=== PATIENT | male | born 1955 | race Caucasian/White ===

== ENCOUNTER → 2016-10-15 | Outpatient (CLI) | payer OTHER ==
--- NOTE | 2016-10-15 13:07 | US ---
EXAMINATION TYPE: US carotid duplex BILAT DATE OF EXAM: 10/15/2016 12:28 PM COMPARISON: NONE CLINICAL HISTORY: Bruit. EXAM MEASUREMENTS: RIGHT: Peak Systolic Velocity (PSV) cm/sec ----- Right CCA: 83.6 ----- Right ICA: 66.9 ----- Right ECA: 82.0 ICA/CCA ratio: 0.8 RIGHT: End Diastole cm/sec ----- Right CCA: 15.9 ----- Right ICA: 23.2 ----- Right ECA: 10.3 LEFT: Peak Systolic Velocity (PSV) cm/sec ----- Left CCA: 65.9 ----- Left ICA: 69.5 ----- Left ECA: 93.2 ICA/CCA ratio: 1.1 LEFT: End Diastole cm/sec ----- Left CCA: 16.7 ----- Left ICA: 26.3 ----- Left ECA: 11.0 VERTEBRALS (direction of flow): Right Vertebral: Antegrade Left Vertebral: Antegrade TECHNOLOGIST IMPRESSION: No significant stenosis seen Grayscale images show no significant focal plaque at carotid bulb level bilaterally. IMPRESSION: No hemodynamically significant stenosis is seen in either internal carotid artery. Criteria for Assigning % of Stenosis / Diameter reduction (Estimation based on the indirect measurements of the internal carotid artery velocities (ICA PSV). 1. Normal (no stenosis)=ICA PSV < 125 cm/s: ratio < 2.0: ICA EDV<40 cm/s.
--- NOTE | 2016-10-16 10:58 | ECHOF ---
Referral Reason:R06.00 dyspnea MEASUREMENTS -------- HEIGHT: 177.8 cm WEIGHT: 145.2 kg BP: 150/90 RVIDd: 3.6 cm (< 3.3) IVSd: 1.6 cm (0.6 - 1.1) LVIDd: 5.5 cm (3.9 - 5.3) LVPWd: 1.5 cm (0.6 - 1.1) IVSs: 2.4 cm LVIDs: 4.2 cm LVPWs: 2.4 cm LA Diam: 4.1 cm (2.7 - 3.8) LAESV Index (A-L): 28.76 ml/m Ao Diam: 3.7 cm (2.0 - 3.7) AV Cusp: 2.0 cm (1.5 - 2.6) MV EXCURSION: 18.221 mm (> 18.000) MV EF SLOPE: 55 mm/s (70 - 150) EPSS: 1.5 cm MV E Matt: 1.02 m/s MV DecT: 199 ms MV A Matt: 0.75 m/s MV E/A Ratio: 1.36 AV maxP.06 mmHg AV meanP.00 mmHg RAP: 5.00 mmHg RVSP: 41.36 mmHg FINDINGS -------- Sinus rhythm. This was a technically adequate study. The left ventricular size is normal. There is moderate concentric left ventricular hypertrophy. Overall left ventricular systolic function is mildly impaired with, an EF between 45 - 50 %. The right ventricle is mildly enlarged. LA is midly dilated 29-33ml/m2. The right atrium is normal in size. 1.5mg of Definity was utilized for enhancement of images Aortic valve is trileaflet and is moderately thickened. There is moderate aortic stenosis present. Peak/mean gradient across the Aortic Valve is 40.06mmHg / 23.00mmHg. Mild mitral annular calcification present. Mild tricuspid regurgitation present. There is mild pulmonary hypertension. The right ventricular systolic pressure, as measured by Doppler, is 41.36mmHg. The pulmonic valve was not well visualized. The aortic root is dilated measuring 3.7cm. Normal inferior vena cava with normal inspiratory collapse consistent with estimated right atrial pressure of 5 mmHg. There is no pericardial effusion. CONCLUSIONS -------- 1. Sinus rhythm. 2. Aortic valve is trileaflet and is moderately thickened. 3. There is moderate aortic stenosis present. 4. Peak/mean gradient across the Aortic Valve is 40.06mmHg / 23.00mmHg. 5. Mild mitral annular calcification present. 6. Mild tricuspid regurgitation present. 7. There is mild pulmonary hypertension. 8. The right ventricular systolic pressure, as measured by Doppler, is 41.36mmHg. 9. The pulmonic valve was not well visualized. 10. The aortic root is dilated measuring 3.7cm. 11. Normal inferior vena cava with normal inspiratory collapse consistent with estimated right atrial pressure of 5 mmHg. 12. This was a technically adequate study. 13. There is no pericardial effusion. 14. The left ventricular size is normal. 15. There is moderate concentric left ventricular hypertrophy. 16. Overall left ventricular systolic function is mildly impaired with, an EF between 45 - 50 %. 17. The right ventricle is mildly enlarged. 18. LA is midly dilated 29-33ml/m2. 19. The right atrium is normal in size. 20. 1.5mg of Definity was utilized for enhancement of images CONTROL CLERK HEAD: Ani Dior RDCS
== END ==
LOC: RADUSMAIN 11:52
PROVIDERS: ATTEND Physician Assistant Medical
DX: R09.89 Other specified symptoms and signs involving the circulatory and respiratory systems (principal)
CPT/HCPCS: 93306; 93880; Q9957

== ENCOUNTER 2018-05-06 10:31 | Inpatient (IN) | payer OTHER ==
[2018-05-06] MEDS ORDERED: IPRATROPIUM-ALBUTEROL 3 ML NEB INHALATION STA (10:43)
[2018-05-06] MEDS ORDERED: SODIUM CHLORIDE 0.9% 1,000 ML IV STA (10:43)
[2018-05-06] MEDS ORDERED: FUROSEMIDE 10 MG/ML 4 ML VIAL IV STA (10:43)
--- NOTE | 2018-05-06 10:46 | ED ---
SOB HPI - General Chief Complaint: Shortness of Breath Stated Complaint: franco Time Seen by Provider: 05/06/18 10:39 Source: patient, RN notes reviewed Mode of arrival: wheelchair Limitations: no limitations - History of Present Illness Initial Comments: This is a 63-year-old male with a history of bicuspid aortic valve and aortic stenosis diabetes and obesity but no diagnosed history of COPD who states she's had exertional dyspnea and shortness of breath as he progressively worse. He states is been on-and-off for the past 1-2 months but worse since yesterday. He has a cough with thick white phlegm no overt fevers chills or sweats he states he has some burning pain across his upper abdomen yesterday and today. No other modifying factors he states he had an x-ray done at the [facility] recently which showed fluid. He states he is at 311 pounds and has not again anything recently. No worsening of any edema. No pain currently at this time patient states he did try his son's inhaler without any relief MD Complaint: shortness of breath - Related Data Home Medications Medication Instructions Recorded Confirmed PARoxetine HCL 30 mg PO DAILY 08/20/16 05/06/18 Indomethacin [Indocin] 25 mg PO TID PRN 05/06/18 05/06/18 Allergies Allergy/AdvReac Type Severity Reaction Status Date / Time No Known Allergies Allergy Verified 05/06/18 12:13 Review of Systems ROS Statement: Those systems with pertinent positive or pertinent negative responses have been documented in the HPI. ROS Other: All systems not noted in ROS Statement are negative. Past Medical History Past Medical History: Diabetes Mellitus Additional Past Medical History / Comment(s): pulmonary edema History of Any Multi-Drug Resistant Organisms: None Reported Past Surgical History: Cholecystectomy Additional Past Surgical History / Comment(s): carpal tunnel left and right hand Past Anesthesia/Blood Transfusion Reactions: No Reported Reaction Past Psychological History: No Psychological Hx Reported Smoking Status: Never smoker Past Alcohol Use History: None Reported Past Drug Use History: None Reported General Exam - General Exam Comments Initial Comments: This is a well-developed well-nourished awake alert oriented times 3 male Limitations: no limitations General appearance: alert, in no apparent distress Head exam: Present: atraumatic, normocephalic, normal inspection Eye exam: Present: normal appearance, PERRL, EOMI. Absent: scleral icterus, conjunctival injection, periorbital swelling ENT exam: Present: normal exam, mucous membranes moist Neck exam: Present: normal inspection. Absent: tenderness, meningismus, lymphadenopathy Respiratory exam: Present: decreased breath sounds. Absent: respiratory distress, wheezes, rales, rhonchi, stridor Cardiovascular Exam: Present: regular rate, normal rhythm, normal heart sounds. Absent: systolic murmur, diastolic murmur, rubs, gallop, clicks GI/Abdominal exam: Present: soft, normal bowel sounds, other (Obese abdomen). Absent: distended, tenderness, guarding, rebound, rigid, bruit, pulsatile mass Extremities exam: Present: normal inspection, full ROM, normal capillary refill , pedal edema. Absent: tenderness, joint swelling, calf tenderness Back exam: Present: normal inspection Neurological exam: Present: alert, oriented X3, CN II-XII intact Psychiatric exam: Present: normal affect, normal mood Skin exam: Present: warm, dry, intact, normal color. Absent: rash Course Vital Signs 05/06/18 05/06/18 05/06/18 10:33 10:57 11:11 Temperature 98.3 F Pulse Rate 65 62 59 L Respiratory 20 18 Rate Blood Pressure 161/96 158/93 O2 Sat by Pulse 98 99 Oximetry 05/06/18 05/06/18 11:19 13:39 Temperature Pulse Rate 80 64 Respiratory 18 Rate Blood Pressure 175/103 O2 Sat by Pulse 97 Oximetry - Reevaluation(s) Reevaluation #1: 05/06/18 11:33 Patient states she is breathing easier after the DuoNeb treatment. Medical Decision Making - Medical Decision Making I did discuss the findings the patient's family. Patient be admitted for evaluation of congestive heart failure did discuss case the hospitalist. - Lab Data Result diagrams: 05/06/18 10:04 05/06/18 10:04 Lab Results 05/06/18 05/06/18 05/06/18 Range/Units 10:04 10:04 10:04 WBC 9.9 (3.8-10.6) k/uL RBC 4.49 (4.30-5.90) m/uL Hgb 12.2 L (13.0-17.5) gm/dL Hct 39.5 (39.0-53.0) % MCV 88.1 (80.0-100.0) fL MCH 27.1 (25.0-35.0) pg MCHC 30.8 L (31.0-37.0) g/dL RDW 15.3 (11.5-15.5) % Plt Count 333 (150-450) k/uL Neutrophils % 86 % Lymphocytes % 10 % Monocytes % 3 % Eosinophils % 1 % Basophils % 0 % Neutrophils # 8.5 H (1.3-7.7) k/uL Lymphocytes # 1.0 (1.0-4.8) k/uL Monocytes # 0.3 (0-1.0) k/uL Eosinophils # 0.1 (0-0.7) k/uL Basophils # 0.0 (0-0.2) k/uL PT (9.0-12.0) sec INR (<1.2) APTT (22.0-30.0) sec D-Dimer (<0.60) mg/L FEU Sodium 143 (137-145) mmol/L Potassium 4.5 (3.5-5.1) mmol/L Chloride 107 (98-107) mmol/L Carbon Dioxide 23 (22-30) mmol/L Anion Gap 13 mmol/L BUN 32 H (9-20) mg/dL Creatinine 1.22 (0.66-1.25) mg/dL Est GFR (CKD-EPI)AfAm 73 (>60 ml/min/1.73 sqM) Est GFR (CKD-EPI)NonAf 63 (>60 ml/min/1.73 sqM) Glucose 135 H (74-99) mg/dL Calcium 9.3 (8.4-10.2) mg/dL Magnesium 2.0 (1.6-2.3) mg/dL Total Bilirubin 1.6 H (0.2-1.3) mg/dL AST 63 H (17-59) U/L ALT 66 (21-72) U/L Alkaline Phosphatase 86 (38-126) U/L Total Creatine Kinase 236 H (55-170) U/L CK-MB (CK-2) 3.4 H* (0.0-2.4) ng/mL CK-MB (CK-2) Rel Index 1.4 Troponin I 0.024 (0.000-0.034) ng/mL NT-Pro-B Natriuret Pep pg/mL Total Protein 7.4 (6.3-8.2) g/dL Albumin 4.3 (3.5-5.0) g/dL 05/06/18 05/06/18 Range/Units 10:04 10:04 WBC (3.8-10.6) k/uL RBC (4.30-5.90) m/uL Hgb (13.0-17.5) gm/dL Hct (39.0-53.0) % MCV (80.0-100.0) fL MCH (25.0-35.0) pg MCHC (31.0-37.0) g/dL RDW (11.5-15.5) % Plt Count (150-450) k/uL Neutrophils % % Lymphocytes % % Monocytes % % Eosinophils % % Basophils % % Neutrophils # (1.3-7.7) k/uL Lymphocytes # (1.0-4.8) k/uL Monocytes # (0-1.0) k/uL Eosinophils # (0-0.7) k/uL Basophils # (0-0.2) k/uL PT 14.4 H (9.0-12.0) sec INR 1.6 H (<1.2) APTT 22.8 (22.0-30.0) sec D-Dimer 1.30 H (<0.60) mg/L FEU Sodium (137-145) mmol/L Potassium (3.5-5.1) mmol/L Chloride (98-107) mmol/L Carbon Dioxide (22-30) mmol/L Anion Gap mmol/L BUN (9-20) mg/dL Creatinine (0.66-1.25) mg/dL Est GFR (CKD-EPI)AfAm (>60 ml/min/1.73 sqM) Est GFR (CKD-EPI)NonAf (>60 ml/min/1.73 sqM) Glucose (74-99) mg/dL Calcium (8.4-10.2) mg/dL Magnesium (1.6-2.3) mg/dL Total Bilirubin (0.2-1.3) mg/dL AST (17-59) U/L ALT (21-72) U/L Alkaline Phosphatase (38-126) U/L Total Creatine Kinase (55-170) U/L CK-MB (CK-2) (0.0-2.4) ng/mL CK-MB (CK-2) Rel Index Troponin I (0.000-0.034) ng/mL NT-Pro-B Natriuret Pep 90774 pg/mL Total Protein (6.3-8.2) g/dL Albumin (3.5-5.0) g/dL - EKG Data -: EKG Interpreted by Me (EKG shows left bundle branch block pattern rate was 61 appear interval 176 ) - Radiology Data Radiology results: report reviewed (I did review the imaging and reports are is evidence of congestive heart failure no definite evidence of pulmonary embolism. ), image reviewed Critical Care Time Critical Care Time: Yes Critical Care Time: Critical care time: 32 minutes which includes initial presentation with history physical labs x-rays several reevaluation the patient response to therapy discussed with patient family regarding findings discussion with the hospitalist Dr. Cordero admission orders and documentation of the above. Disposition Clinical Impression: Dyspnea, Chest pain Disposition: ADMITTED IP TO THIS HOSP Condition: Stable Referrals: Estevan Howell MD [Primary Care Provider] - 1-2 days
[2018-05-06 11:22] LABS: Basophils % (A) 0 %; Eosinophils # (A) 0.1 k/uL (0-0.7); Eosinophils % (A) 1 %; HCT 39.5 % (39.0-53.0); HGB 12.2 gm/dL (13.0-17.5); Lymphocytes % (A) 10 %; MCH 27.1 pg (25.0-35.0); MCHC 30.8 g/dL (31.0-37.0); MCV 88.1 fL (80.0-100.0); Mean Platelet Volume 6.9; Monocytes # (A) 0.3 k/uL (0-1.0); Monocytes % (A) 3 %; Neutrophils # (A) 8.5 k/uL (1.3-7.7); Neutrophils % (A) 86 %; Platelet Count 333 k/uL (150-450); RBC 4.49 m/uL (4.30-5.90); RDW 15.3 % (11.5-15.5); WBC 9.9 k/uL (3.8-10.6)
[2018-05-06 11:31] LABS: Albumin 4.3 g/dL (3.5-5.0); Calcium 9.3 mg/dL (8.4-10.2); Potassium 4.5 mmol/L (3.5-5.1); Total Bilirubin 1.6 mg/dL (0.2-1.3); Total Protein 7.4 g/dL (6.3-8.2)
[2018-05-06 11:58] LABS: INR 1.6 (<1.2); Partial Thromboplastin Time 22.8 sec (22.0-30.0); Prothrombin Time 14.4 sec (9.0-12.0)
--- NOTE | 2018-05-06 11:59 | XR ---
EXAMINATION TYPE: XR chest 2V DATE OF EXAM: 05/06/2018 COMPARISON: 04/19/2011 HISTORY: Difficulty breathing TECHNIQUE: Frontal and lateral views of the chest are obtained. FINDINGS: There is very mild pulmonary vascular congestion are trace bilateral pleural effusions in combination with cardiomegaly. Mild multilevel degenerative changes of the thoracic spine are seen. O sseous structures are grossly intact. IMPRESSION: Findings likely the basis of mild decompensated congestive heart failure.
[2018-05-06 12:04] LABS: D-Dimer 1.3 mg/L FEU (<0.60)
[2018-05-06 12:08] LABS: Troponin I 0.024 ng/mL (0.000-0.034)
[2018-05-06 12:09] LABS: Creatine Kinase MB 3.4 ng/mL (0.0-2.4)
--- NOTE | 2018-05-06 13:02 | CT ---
EXAMINATION TYPE: CT angio chest DATE OF EXAM: 05/06/2018 COMPARISON: Chest CT April 20, 2011. Chest x-ray earlier today. HISTORY: Shortness of breath and chest pain. CT DLP: 835.5 mGycm. Automated Exposure Control for Dose Reduction was Utilized. CONTRAST: CTA scan of the thorax is performed with IV Contrast, patient injected with 100 mL of Isovue 370, pul monary embolism protocol. MIP Images are created on CT scanner and reviewed. FINDINGS: LUNGS: There are small to moderate-sized right greater than left pleural effusions seen on CT larger than expected on recent chest x-ray. There is ground glass opacity both bases favoring early atelecta tic change related to effusions. No pneumothorax is seen bilaterally. Tracheobronchial tree is patent . MEDIASTINUM: There is slightly suboptimal bolus but there is no CT evidence for pulmonary embolism. There are prominent thoracic lymph nodes redemonstrated. Largest prevascular region measures 2.2 x 1. 1 cm on axial image 49 slightly more prominent versus prior axial image 63. A pericarinal lymph node measures 2.4 x 1.4 cm axial image 49 also felt slightly more prominent versus prior. There is redemon stration of cardiomegaly without significant pericardial effusion. Reflux of contrast into hepatic ve ins and IVC is now present. Moderate calcification at aortic valve is identified. Ascending aorta [place] sures 4.1 cm diameter axial image 65. Adjacent main pulmonary artery measures 2.7 cm in diameter. Th ere is moderate biatrial dilatation. Other: Small degree of bilateral gynecomastia is redemonstrated IMPRESSION: 1. Slightly suboptimal study without CT evidence for acute pulmonary embolism. 2. Suspect CHF exacerbation as there is cardiomegaly with small to moderate-sized right greater than left pleural effusions. Correlate clinically. 3. Thoracic adenopathy slightly larger from 2011 may warrant further clinical workup as detailed abov e. 4. Ascending aortic aneurysm up to 4.1 cm redemonstrated felt stable.
[2018-05-06] MEDS ORDERED: HEPARIN SODIUM,PORCINE 5,000 UNIT/ML 1 ML VIAL IV ONE (14:40)
[2018-05-06] MEDS ORDERED: HEPARIN SOD,PORK IN 0.45% NACL 25,000 UNIT in 0.45% NACL 1 500ML.BAG IV SCH (14:45)
[2018-05-06] MEDS: SODIUM CHLORIDE 0.9% 1,000 ML IV SCH (15:01)
[2018-05-06] MEDS: NITROGLYCERIN OINT 1 INCH/GM PACKET TOPICAL SCH ×2 (15:08→22:50)
[2018-05-06] MEDS ORDERED: ACETAMINOPHEN TAB 325 MG TAB PO PRN (15:11)
[2018-05-06] MEDS ORDERED: NALOXONE 0.4 MG/ML 1 ML VIAL IV PRN (15:11)
--- NOTE | 2018-05-06 15:51 | P.HPIM ---
History of Present Illness H&P Date: 05/06/18 Chief Complaint: Shortness of breath This is a 63-year-old male with past medical history of congestive heart failure , diabetes mellitus, aortic stenosis, obstructive sleep apnea, hypertension initially presented to the emergency department for shortness of breath. Patient reports feeling short of breath since March 2018. Patient had an exercise endurance of 1-2 blocks but since March has felt that he cannot walk more than 10 feet. Patient denies any lower extremity edema. Patient states he sleeps on one pillow at night, he denies orthopnea. Patient reports going to the [facility] this Friday and receiving a Z-Cesar for a persistent productive cough over the past month. Patient reports that he has made multiple trips to the [facility] in [place] over the last 6 months where a thorough cardiac workup had been performed. Patient reports undergoing an angiogram and transesophageal echocardiogram while at the [facility] in [place]. Patient states that he was told about a 40% and 70% occlusion in his heart but no intervention was performed. He denies any headaches, lower extremity edema, nausea, vomiting, fever, palpitations, joint pain, changes in urination or bowel habits, and changes in appetite or weight. He denies chest pain but complains of chest tightness. Patient reports compliance with his medication and salt restriction , but states he has been increasing his water intake in order to lose weight. In the ED patient was found to have a D-dimer of 1.30, BUN 32, AST 63, CPK 236, Trop 0.02. CT angiogram was performed and pulmonary embolus was ruled out but was more suggestive of pulmonary edema and congestive heart failure. Chest x- ray was consistent with CHF. Patient was given aspirin 325 mg, furosemide 40 mg IV, and a heparin drip. Review of Systems Constitutional: Reports as per HPI Ears, nose, mouth and throat: Reports as per HPI Cardiovascular: Reports as per HPI Respiratory: Reports as per HPI Gastrointestinal: Reports as per HPI Genitourinary: Reports as per HPI Musculoskeletal: Reports as per HPI Integumentary: Reports as per HPI Neurological: Reports as per HPI Psychiatric: Reports as per HPI Endocrine: Reports as per HPI Hematologic/Lymphatic: Reports as per HPI Allergic/Immunologic: Reports as per HPI Past Medical History Past Medical History: Diabetes Mellitus Additional Past Medical History / Comment(s): Congestive Heart Failure, Aortic stenosis, Sleep apnea, Hypertension, Diabetes Mellitus, Coronary artery disease History of Any Multi-Drug Resistant Organisms: None Reported Past Surgical History: Cholecystectomy Additional Past Surgical History / Comment(s): carpal tunnel left and right hand Past Anesthesia/Blood Transfusion Reactions: No Reported Reaction Past Psychological History: No Psychological Hx Reported Smoking Status: Never smoker Past Alcohol Use History: None Reported Past Drug Use History: None Reported - Past Family History Father Family Medical History: Cancer ([place], long history of smoking), Myocardial Infarction ([place]) (at age 57-58) Medications and Allergies Home Medications Medication Instructions Recorded Confirmed Type PARoxetine HCL 30 mg PO DAILY 08/20/16 05/06/18 History Aspirin EC [Ecotrin Low Dose] 81 mg PO DAILY 05/06/18 05/06/18 History Atorvastatin [Lipitor] 10 mg PO HS 05/06/18 05/06/18 History Cyanocobalamin (Vitamin B-12) 1,000 mcg PO DAILY 05/06/18 05/06/18 History [Vitamin B-12] Ferrous Sulfate [Feosol] 325 mg PO DAILY 05/06/18 05/06/18 History Fluticasone Nasal [place] [Flonase 1 spray EA NOSTRIL DAILY 05/06/18 05/06/18 History Nasal [place]] Furosemide [Lasix] 40 mg PO TID-W/MEALS 05/06/18 05/06/18 History Indomethacin [Indocin] 25 mg PO TID PRN 05/06/18 05/06/18 History Lisinopril [Zestril] 10 mg PO DAILY 05/06/18 05/06/18 History Metoprolol Succinate [Toprol Xl] 50 mg PO DAILY 05/06/18 05/06/18 History Naproxen 500 mg PO BID 05/06/18 05/06/18 History Potassium Chloride [Klor-Con 20] 20 meq PO DAILY 05/06/18 05/06/18 History Allergies Allergy/AdvReac Type Severity Reaction Status Date / Time No Known Allergies Allergy Verified 05/06/18 12:13 Physical Exam Vitals: Vital Signs Temp Pulse Resp BP Pulse Ox 05/06/18 15:15 98.4 F 60 18 180/90 98 05/06/18 13:39 64 18 175/103 97 05/06/18 11:19 80 05/06/18 11:11 59 L 05/06/18 10:57 62 18 158/93 99 05/06/18 10:33 98.3 F 65 20 161/96 98 Intake and Output 05/06/18 05/06/18 05/06/18 06:59 14:59 22:59 Output Total 800 Balance -800 Output: Urine 800 Other: Weight 141.067 kg General: non toxic, no distress, appears at stated age, appears short of breath Derm: warm, dry Head: atraumatic, normocephalic, symmetric Eyes: EOMI, no lid lag, anicteric sclera Mouth: no lip lesion, mucus membranes moist Cardiovascular: S1S2 reg, systolic murmur, no lower extremity edema Lungs: Decreased breath sounds bilaterally, no rhonchi, no rales , no accessory muscle use Abdominal: soft, nontender to palpation, obese abdomen, no appreciable organomegaly Ext: no gross muscle atrophy, no contractures Neuro: no focal neuro deficits Psych: Alert, oriented, appropriate affect Results CBC & Chem 7: 05/06/18 10:04 05/06/18 10:04 Labs: Abnormal Lab Results - Last 24 Hours (Table) 05/06/18 05/06/18 05/06/18 Range/Units 10:04 10:04 10:04 Hgb 12.2 L (13.0-17.5) gm/dL MCHC 30.8 L (31.0-37.0) g/dL Neutrophils # 8.5 H (1.3-7.7) k/uL PT (9.0-12.0) sec INR (<1.2) D-Dimer (<0.60) mg/L FEU BUN 32 H (9-20) mg/dL Glucose 135 H (74-99) mg/dL Total Bilirubin 1.6 H (0.2-1.3) mg/dL AST 63 H (17-59) U/L Total Creatine Kinase 236 H (55-170) U/L CK-MB (CK-2) 3.4 H* (0.0-2.4) ng/mL 05/06/18 Range/Units 10:04 Hgb (13.0-17.5) gm/dL MCHC (31.0-37.0) g/dL Neutrophils # (1.3-7.7) k/uL PT 14.4 H (9.0-12.0) sec INR 1.6 H (<1.2) D-Dimer 1.30 H (<0.60) mg/L FEU BUN (9-20) mg/dL Glucose (74-99) mg/dL Total Bilirubin (0.2-1.3) mg/dL AST (17-59) U/L Total Creatine Kinase (55-170) U/L CK-MB (CK-2) (0.0-2.4) ng/mL Chest x-ray: report reviewed CT scan - chest: report reviewed Thrombosis Risk Factor Assmnt - DVT/VTE Prophylaxis DVT/VTE Prophylaxis: Pharmacologic Prophylaxis ordered - Choose All That Apply Each Factor Represents 1 point: Obesity (BMI >25) Each Risk Factor Represents 2 Points: Age 61-74 years, Patient confined to bed Thrombosis Risk Factor Assessment Total Risk Factor Score: 5 Thrombosis Risk Factor Assessment Level: High Risk Assessment and Plan Assessment: Assessment 63 year old M with PMH of CHF, CAD, DM, sleep apnea, HTN, presents to the ED for worsening exertional SOB for the past 2 months. He was recently diagnosed with and CHF. He is admitted for management of decompensated HF. Plan Dyspnea - Likely acute decompensated HF likely 2/2 patient noncompliance of fluid restriction, complicated by Aortic stenosis and pleural effusions. - r/o ACS - Trop < 0.03 x 1, elevated CKMB x 1 - EKG shows NSR with LBBB - Continue DuoNeb QTrend 2 more sets of Trop/EKG to r/o ACS. CHF exacerbation - BNP 66249 - CXR shows mild decompensated CHF - CTAPE shows no PE, cardiomegaly with R>L pleural effusion, thoracic adenopathy , 4.1 cm AAA. - Patient reports cardiac angiogram at [facility] in [place] - Echo from 10/2016 shows EF 45-50% with concentric hypertrophy. - Will obtain Echocardiogram to assess EF and degree of . Will need to either transfer or obtain records from [facility] regarding cardiac workup. Start Lasix 40 IV BID. Daily weights. Strict Ins and Outs. Telemetry monitoring. Low salt diet. Fluid restriction. Keep K > 4 and Mg > 2. FU Dietitian, Cardiology : Continue Lasix 40 mg IV BID. Avoid overdiuresing and add ACEi when CHANTEL is better. FU Echocardiogram HTN: BP 180/90. Last dose this morning, but unable to name. Will re-start Metoprolol 50 mg PO daily, Lisinopril 10 mg PO daily. Monitor vitals, adjust medications as necessary. FU Lipid panel CHANTEL: BUN 32 Cr 1.22 likely due to dehydration. Will avoid fluids due to respiratory and cardiac status. Avoid nephrotoxins. Will continue to monitor. FU CMP in the AM. Transaminase: T. Bili 1.6 AST 63 ALT 66. Likely related to hepatic congestion. FU CMP in the AM, acute Hep panel, Lipid panel. AAA: 4.1 cm seen of Chest CTA. Seen on Echo in 10/2016 measuring 3.7 cm. Stable, FU outPT. Thoracic adenopathy: Likely due to pulmonary congestion. No fever or leukocytosis. Unknown etiology at this time. Will continue to monitor. Anemia: Hg 12.2 Hct 39.5 MCV 88.1. Normocytic likely AOCD. Continue FeSO4 325 mg PO daily. FU CBC in the AM. Rhabdomyolysis: CPK 236, mildly elevated. Possibly due to dehydration. Monitor kidney function. FU CPK in the AM DM: POC glucose 135. Will start low dose ISS. Accuchecks QID. Hypoglycemic precautions. FU A1c h/o CAD: Continue ASA 81 mg PO daily and Lipitor 40 mg PO QHS. Sleep apnea: BiPAP QHS. Depression: Paroxetine 30 mg PO daily. DVT/GI Prophylaxis: Lovenox 40 mg SUBCUT daily, Protonix 40 mg PO daily. (1) CHF (congestive heart failure) Current Visit: Yes Status: Acute Code(s): I50.9 - HEART FAILURE, UNSPECIFIED SNOMED Code(s): 70305312 (2) Aortic stenosis Current Visit: Yes Status: Acute Code(s): I35.0 - NONRHEUMATIC AORTIC (VALVE ) STENOSIS SNOMED Code(s): 07475692 (3) Dyspnea Current Visit: Yes Status: Acute Code(s): R06.00 - DYSPNEA, UNSPECIFIED SNOMED Code(s): 290682422 (4) Diabetes mellitus type 2 in obese Current Visit: Yes Status: Acute Code(s): E11.69 - TYPE 2 DIABETES MELLITUS WITH OTHER SPECIFIED COMPLICATION; E66.9 - OBESITY, UNSPECIFIED SNOMED Code(s) : 04761609 (5) Hypertension Current Visit: Yes Status: Acute Code(s): I10 - ESSENTIAL (PRIMARY) HYPERTENSION SNOMED Code(s): 86774865 (6) CAD (coronary artery disease) Current Visit: Yes Status: Acute Code(s): I25.10 - ATHSCL HEART DISEASE OF [place] CORONARY ARTERY W/O ANG PCTRS SNOMED Code(s): 03606577 Time with Patient: Greater than 30
[2018-05-06] MEDS ORDERED: FUROSEMIDE 10 MG/ML 4 ML VIAL IV SCH (16:00)
--- NOTE | 2018-05-06 17:31 | ECHOF ---
Referral Reason:Pulmonary edema MEASUREMENTS -------- HEIGHT: 177.8 cm WEIGHT: 141.1 kg BP: RVIDd: 3.7 cm (< 3.3) IVSd: 1.2 cm (0.6 - 1.1) LVIDd: 4.8 cm (3.9 - 5.3) LVPWd: 1.2 cm (0.6 - 1.1) IVSs: 1.6 cm LVIDs: 4.6 cm LVPWs: 1.6 cm LAESV Index (A-L): 36.95 ml/m Ao Diam: 3.6 cm (2.0 - 3.7) AV Cusp: 1.4 cm (1.5 - 2.6) LA Diam: 3.8 cm (2.7 - 3.8) MV E Matt: 1.01 m/s MV DecT: 183 ms MV A Matt: 0.58 m/s MV E/A Ratio: 1.75 AV maxP.34 mmHg AV meanP.43 mmHg RAP: 15.00 mmHg RVSP: 71.07 mmHg FINDINGS -------- Sinus rhythm. This was a technically difficult study with suboptimal views. The left ventricular size is normal. There is mild concentric left ventricular hypertrophy. Overa ll left ventricular systolic function is moderately impaired with, an EF between 35 - 40 %. Mid ant eroseptal LV wall motion is hypokinetic. Apical anterior LV wall motion is hypokinetic. Apical septum LV wall motion is hypokinetic. The right ventricle is mildly enlarged. LA is moderately dilated 34-39 ml/m2 RA appears enlarged. 3ml of Lumason was utilized for enhancement of images. There is moderate aortic valve sclerosis. There is no evidence of aortic regurgitation. There is mild aortic stenosis present. Peak/mean gradient across the Aortic Valve is 24.34mmHg / 13.43mmHg. The mitral valve leaflets are mildly thickened. [id number] mitral regurgitation is present. Moderate tricuspid regurgitation present. There is severe pulmonary hypertension. The right ventr icular systolic pressure, as measured by Doppler, is 71.07mmHg. Trace/mild (physiologic) pulmonic regurgitation. The aortic root size is normal. The inferior vena cava is dilated with no significant inspiratory collapse which is consistent estima josue right atrial pressure of >20 mmHg. There is no pericardial effusion. CONCLUSIONS -------- 1. Sinus rhythm. 2. This was a technically difficult study with suboptimal views. 3. The left ventricular size is normal. 4. There is mild concentric left ventricular hypertrophy. 5. Overall left ventricular systolic function is moderately impaired with, an EF between 35 - 40 %. 6. The right ventricle is mildly enlarged. 7. LA is moderately dilated 34-39 ml/m2 8. RA appears enlarged. 9. 3ml of Lumason was utilized for enhancement of images. 10. There is moderate aortic valve sclerosis. 11. There is mild aortic stenosis present. 12. Peak/mean gradient across the Aortic Valve is 24.34mmHg / 13.43mmHg. 13. The mitral valve leaflets are mildly thickened. 14. Duik-hu-stdisdfi mitral regurgitation is present. 15. Moderate tricuspid regurgitation present. 16. There is severe pulmonary hypertension. 17. The right ventricular systolic pressure, as measured by Doppler, is 71.07mmHg. 18. Trace/mild (physiologic) pulmonic regurgitation. 19. The aortic root size is normal. 20. The inferior vena cava is dilated with no significant inspiratory collapse which is consistent es timated right atrial pressure of >20 mmHg. 21. There is no pericardial effusion. ROCK STAR: Jarrell Alfonso RDCS
[2018-05-06 18:19] LABS: Glucose,Whole Blood 189 mg/dL (75-99)
[2018-05-06] MEDS: FUROSEMIDE 10 MG/ML 4 ML VIAL IV SCH (19:54)
[2018-05-06] MEDS: ATORVASTATIN 40 MG TAB PO SCH (19:54)
[2018-05-06 21:03] LABS: Glucose,Whole Blood 147 mg/dL (75-99)
[2018-05-07 05:55] LABS: Glucose,Whole Blood 126 mg/dL (75-99)
[2018-05-07] MEDS: PANTOPRAZOLE 40 MG TABLET PO SCH (06:15)
[2018-05-07 06:31] LABS: INR 1.5 (<1.2); Prothrombin Time 14.1 sec (9.0-12.0)
[2018-05-07 06:32] LABS: Albumin 3.7 g/dL (3.5-5.0); Calcium 8.8 mg/dL (8.4-10.2); Phosphorus 4.6 mg/dL (2.5-4.5); Total Bilirubin 1.4 mg/dL (0.2-1.3); Total Protein 6.3 g/dL (6.3-8.2)
--- NOTE | 2018-05-07 08:06 | P.CRDCN ---
History of Present Illness Consult date: 05/07/18 Requesting physician: Brittaney Loya Consult reason: congestive heart failure Chief complaint: Shortness of breath History of present illness: This is a 63-year-old gentleman with known history of hypertension, borderline diabetes, bicuspid aortic valve with aortic stenosis, obesity, who follows regularly at [facility]. He presents to the hospital with symptoms of progressively worsening shortness of breath with evidence of a PND and orthopnea and significant abdominal distention for approximately 2 months duration. Patient denies having any chest discomfort, no significant peripheral edema. Chord[place] to the patient, he is followed at the [facility] by a brokerage office manager, he has been told that he will require valve replacement at some point. Chest x-ray on admission here reveal mild decompensated congestive heart failure. EKG shows a normal sinus rhythm with a left bundle-branch block pattern and nonspecific ST-T wave changes. CT of the chest was performed which was a slightly suboptimal study without evidence of a pulmonary embolism. Echo cardiogram with Doppler study was performed which revealed an ejection fraction of 35-40%, moderate aortic valve sclerosis mild aortic stenosis mild to moderate mitral regurg, severe pulmonary hypertension. The patient had an echocardiogram with Doppler study performed in October of last year which revealed a moderate aortic stenosis, ejection fraction at that time documented to be 45-50%. The pressure on arrival here 10/11/1989 with a heart rate in the 60s, 98% on room air. Blood pressure this morning 142/70 with a heart rate in the 50s, 98% on BiPAP. White blood cell count 9.9, hemoglobin 12.2, platelet count 333. D-dimer 1.3. Sodium 141, potassium 4.0, BUN 32, creatinine 1.2, NEC and 2.0, BNP level 14,800.Troponin 0.024, 0.017. Patient was initiated on IV Lasix on arrival here, he diuresed well through the night last night, weight down from 141-137 kg this morning. The time of my examination this morning, patient is sitting up at the side of his bed, he states that his breathing has significantly improved although he is still short of breath and quite distended and full in his abdomen. Past Medical History Past Medical History: Diabetes Mellitus Additional Past Medical History / Comment(s): Congestive Heart Failure, Aortic stenosis, Sleep apnea, Hypertension, Diabetes Mellitus, Coronary artery disease History of Any Multi-Drug Resistant Organisms: None Reported Past Surgical History: Cholecystectomy Additional Past Surgical History / Comment(s): carpal tunnel left and right hand Past Anesthesia/Blood Transfusion Reactions: No Reported Reaction Past Psychological History: No Psychological Hx Reported Smoking Status: Never smoker Past Alcohol Use History: None Reported Past Drug Use History: None Reported - Past Family History Father Family Medical History: Cancer ([place], long history of smoking), Myocardial Infarction ([place]) (at age 57-58) Mother Family Medical History: Cancer Medications and Allergies Home Medications Medication Instructions Recorded Confirmed Type PARoxetine HCL 30 mg PO DAILY 08/20/16 05/06/18 History Aspirin EC [Ecotrin Low Dose] 81 mg PO DAILY 05/06/18 05/06/18 History Atorvastatin [Lipitor] 10 mg PO HS 05/06/18 05/06/18 History Cyanocobalamin (Vitamin B-12) 1,000 mcg PO DAILY 05/06/18 05/06/18 History [Vitamin B-12] Ferrous Sulfate [Feosol] 325 mg PO DAILY 05/06/18 05/06/18 History Fluticasone Nasal [place] [Flonase 1 spray EA NOSTRIL DAILY 05/06/18 05/06/18 History Nasal [place]] Furosemide [Lasix] 40 mg PO TID-W/MEALS 05/06/18 05/06/18 History Indomethacin [Indocin] 25 mg PO TID PRN 05/06/18 05/06/18 History Lisinopril [Zestril] 10 mg PO DAILY 05/06/18 05/06/18 History Metoprolol Succinate [Toprol Xl] 50 mg PO DAILY 05/06/18 05/06/18 History Naproxen 500 mg PO BID 05/06/18 05/06/18 History Potassium Chloride [Klor-Con 20] 20 meq PO DAILY 05/06/18 05/06/18 History Allergies Allergy/AdvReac Type Severity Reaction Status Date / Time No Known Allergies Allergy Verified 05/06/18 12:13 Physical Exam Vitals: Vital Signs Temp Pulse Pulse Resp BP BP Pulse Ox 05/07/18 04:00 97.2 F L 56 L 16 142/75 98 05/07/18 00:00 97.2 F L 69 16 156/86 98 05/06/18 20:00 97.5 F L 67 17 170/88 92 L 05/06/18 16:00 20 05/06/18 15:32 97.3 F L 62 16 171/113 98 05/06/18 15:15 98.4 F 60 18 180/90 98 05/06/18 13:39 64 18 175/103 97 05/06/18 11:19 80 05/06/18 11:11 59 L 05/06/18 10:57 62 18 158/93 99 05/06/18 10:33 98.3 F 65 20 161/96 98 Intake and Output 05/06/18 05/07/18 05/07/18 22:59 06:59 14:59 Intake Total 118 Output Total 500 1550 Balance -382 -1550 Intake: Oral 118 Output: Urine 500 1550 Other: Voiding Method Urinal Urinal # Voids 2 Weight 139.8 kg 137.8 kg PHYSICAL EXAMINATION: GENERAL: 63-year-old gentleman in no acute distress at the time of my examination HEENT: Head is atraumatic, normocephalic. Pupils equal, round. Sclera anicteric. Conjunctiva are clear. Mucous membranes of the mouth are moist. Neck is supple. There is no elevated jugular venous pressure. No carotid bruit is heard. HEART EXAMINATION:Heart S1 S2 1 systolic murmur is heard. CHEST EXAMINATION: Lungs are clear with diminished air entry to bilateral bases. ABDOMEN:Firm, distended, obese. EXTREMITIES:2+ peripheral pulses with trace evidence of peripheral edema and no calf tenderness noted NEUROLOGIC Patient is awake, alert and oriented X3 . Results 05/06/18 10:04 05/07/18 05:43 Cardiac Enzymes 05/06/18 05/06/18 05/06/18 Range/Units 10:04 10:04 20:29 AST 63 H (17-59) U/L CK-MB (CK-2) 3.4 H* (0.0-2.4) ng/mL Troponin I 0.024 0.017 (0.000-0.034) ng/mL 05/07/18 05/07/18 Range/Units 05:43 05:43 AST 36 (17-59) U/L CK-MB (CK-2) (0.0-2.4) ng/mL Troponin I 0.022 (0.000-0.034) ng/mL Coagulation 05/06/18 05/07/18 Range/Units 10:04 05:43 PT 14.4 H 14.1 H (9.0-12.0) sec APTT 22.8 (22.0-30.0) sec Lipids 05/07/18 Range/Units 05:43 Triglycerides 86 (<150) mg/dL Cholesterol 92 (<200) mg/dL HDL Cholesterol 28 L (40-60) mg/dL CBC 05/06/18 Range/Units 10:04 WBC 9.9 (3.8-10.6) k/uL RBC 4.49 (4.30-5.90) m/uL Hgb 12.2 L (13.0-17.5) gm/dL Hct 39.5 (39.0-53.0) % Plt Count 333 (150-450) k/uL Comprehensive Metabolic Panel 05/06/18 05/07/18 Range/Units 10:04 05:43 Sodium 143 141 (137-145) mmol/L Potassium 4.5 4.0 (3.5-5.1) mmol/L Chloride 107 106 (98-107) mmol/L Carbon Dioxide 23 28 (22-30) mmol/L BUN 32 H 34 H (9-20) mg/dL Creatinine 1.22 1.27 H (0.66-1.25) mg/dL Glucose 135 H 104 H (74-99) mg/dL Calcium 9.3 8.8 (8.4-10.2) mg/dL AST 63 H 36 (17-59) U/L ALT 66 64 (21-72) U/L Alkaline Phosphatase 86 73 (38-126) U/L Total Protein 7.4 6.3 (6.3-8.2) g/dL Albumin 4.3 3.7 (3.5-5.0) g/dL Current Medications Generic Name Dose Route Start Last Admin Trade Name Freq PRN Reason Stop Dose Admin Acetaminophen 650 mg 05/06/18 15:11 Tylenol Tab PO Q6HR PRN Mild Pain or Fever > 100.5 Aspirin 325 mg 05/07/18 12:00 Aspirin PO DAILY [facility] Atorvastatin Calcium 40 mg 05/06/18 21:00 05/06/18 19:54 Lipitor PO 40 mg HS JOHN Administration Enoxaparin Sodium 40 mg 05/07/18 09:00 Lovenox SQ DAILY JOHN Ferrous Sulfate 325 mg 05/07/18 09:00 Feosol PO DAILY JOHN Furosemide 40 mg 05/06/18 21:00 05/06/18 19:54 Lasix IV 40 mg Q12HR JOHN Administration Sodium Chloride 1,000 mls @ 20 mls/hr 05/06/18 10:43 05/06/18 11:05 Saline 0.9% IV 05/07/18 10:42 20 mls/hr .Q24H STA Administration Sodium Chloride 1,000 mls @ 20 mls/hr 05/06/18 14:45 05/06/18 15:01 Saline 0.9% IV 20 mls/hr .Q24H JOHN Administration Lisinopril 10 mg 05/07/18 09:00 Zestril PO DAILY JOHN Metoprolol Succinate 50 mg 05/07/18 09:00 Toprol Xl PO DAILY JOHN Naloxone HCl 0.2 mg 05/06/18 15:11 Narcan IV Q2M PRN Opioid Reversal Nitroglycerin 1 inch 05/06/18 18:00 05/06/18 22:50 Nitro-Bid Oint TOPICAL 1 inch QID JOHN Administration Pantoprazole Sodium 40 mg 05/07/18 07:30 05/07/18 06:15 Protonix PO 40 mg AC-BRKFST JOHN Administration Paroxetine HCl 30 mg 05/07/18 09:00 Paxil PO DAILY JOHN Intake and Output 05/06/18 05/07/18 05/07/18 22:59 06:59 14:59 Intake Total 118 Output Total 500 1550 Balance -382 -1550 Intake: Oral 118 Output: Urine 500 1550 Other: Voiding Method Urinal Urinal # Voids 2 Weight 139.8 kg 137.8 kg 05/06/18 10:04 05/07/18 05:43 EKG Interpretations (text) EKG shows normal sinus rhythm with left bundle-branch block pattern Assessment and Plan Plan: Assessment and plan #1 systolic congestive heart failure acute on chronic #2 bicuspid aortic valve with aortic valve stenosis #3 hypertension #4 hyperlipidemia #5 obesity #6 sleep apnea Plan We will continue current dose of IV Lasix, continue to monitor intake and output along with daily weights and daily lytes BUN and creatinine. Further recommendations to follow. DNP note has been reviewed, I agree with a documented findings and plan of care. Patient was seen and examined.
--- NOTE | 2018-05-07 09:20 | P.PN ---
Progress Note - Text This is an addendum to the dictated cardiology consultation. The patient follows at the [facility] and in [facility]. He has a known history of aortic stenosis, bicuspid aortic valve and a history of cardiomyopathy. He has mild CAD by cardiac catheterization in 2010 but underwent full cardiac workup within the last few months and the [place] system and has been evaluated to undergo aortic valve replacement at [facility]. He presents with symptoms progressive dyspnea, fatigue and lack of energy that has been going on for the last 2 months. On his examination he has few crackles at the bases, no wheezes with a systolic murmur that is mid peaking with trace edema. His echocardiogram shows a severely impaired systolic function that has deteriorated since October 2016 with a low gradient across the aortic valve. Based on his history we may be dealing with a low gradient poor ejection fraction severe aortic stenosis. We will continue symptomatic treatment with diuretics and we will try to obtain the workup that was done at the [place] system. Patient was told that aortic valve replacement is needed. Depending on his progress further recommendations will be made. Thank you for this consult we will follow with you.
[2018-05-07] MEDS: ENOXAPARIN 40 MG/0.4 ML SYRINGE SQ SCH (09:31)
[2018-05-07] MEDS: PARoxetine 10 MG TAB PO SCH (09:31)
[2018-05-07] MEDS: FERROUS SULFATE 325 MG TAB PO SCH (09:31)
[2018-05-07] MEDS: METOPROLOL SUCCINATE (ER) 50 MG TAB.ER.24H PO SCH (09:31)
[2018-05-07] MEDS: LISINOPRIL 10 MG TAB PO SCH (09:31)
[2018-05-07] MEDS: FUROSEMIDE 10 MG/ML 4 ML VIAL IV SCH ×2 (09:32→21:02)
[2018-05-07] MEDS ORDERED: ASPIRIN 325 MG TAB PO SCH (12:00)
[2018-05-07 12:09] LABS: Glucose,Whole Blood 112 mg/dL (75-99)
[2018-05-07 13:08] LABS: Hepatitis A Antibody IgM Non-Reactive (Non-Reactive); Hepatitis B Core IgM Non-Reactive (Non-Reactive)
[2018-05-07] MEDS: SODIUM CHLORIDE 0.9% 1,000 ML IV SCH (15:44)
[2018-05-07] MEDS: ASPIRIN 81 MG PO SCH (15:48)
--- NOTE | 2018-05-07 16:01 | P.PN ---
Subjective Progress Note Date: 05/07/18 Principal diagnosis: CHF exacerbation Patient was seen and examined. No acute events overnight. Patient reports continued SOB. States condition is slightly better than yesterday. 3kg weight loss since 05/06. Has no other complaints. Objective - Vital Signs Vital signs: Vital Signs Temp 97.8 F 05/07/18 12:00 Pulse 58 L 05/07/18 12:00 Resp 16 05/07/18 12:00 BP 159/92 05/07/18 12:00 Pulse Ox 98 05/07/18 12:00 Intake & Output 05/06/18 05/07/18 05/07/18 18:59 06:59 18:59 Intake Total 118 480 Output Total 1300 1550 1250 Balance -1182 -1550 -770 Weight 139.8 kg 137.8 kg 137.8 kg Intake: Oral 118 480 Output: Urine 1300 1550 1250 Other: Voiding Method Urinal Urinal # Voids 2 - Exam General: non toxic, no distress, appears at stated age, appears short of breath Derm: warm, dry Head: atraumatic, normocephalic, symmetric Eyes: EOMI, no lid lag, anicteric sclera Mouth: no lip lesion, mucus membranes moist Cardiovascular: S1S2 reg, systolic murmur, no lower extremity edema Lungs: Decreased breath sounds bilaterally, no rhonchi, no rales , no accessory muscle use Abdominal: soft, nontender to palpation, obese abdomen, no appreciable organomegaly Ext: no gross muscle atrophy, no contractures Neuro: no focal neuro deficits Psych: Alert, oriented, appropriate affect - Labs CBC & Chem 7: 05/06/18 10:04 05/07/18 05:43 Labs: Abnormal Lab Results - Last 24 Hours (Table) 05/06/18 05/06/18 05/07/18 Range/Units 18:14 21:01 05:43 PT 14.1 H (9.0-12.0) sec INR 1.5 H (<1.2) BUN (9-20) mg/dL Creatinine (0.66-1.25) mg/dL Glucose (74-99) mg/dL POC Glucose (mg/dL) 189 H 147 H (75-99) mg/dL Phosphorus (2.5-4.5) mg/dL Total Bilirubin (0.2-1.3) mg/dL Creatine Kinase (55-170) U/L HDL Cholesterol (40-60) mg/dL 05/07/18 05/07/18 05/07/18 Range/Units 05:43 05:53 11:47 PT (9.0-12.0) sec INR (<1.2) BUN 34 H (9-20) mg/dL Creatinine 1.27 H (0.66-1.25) mg/dL Glucose 104 H (74-99) mg/dL POC Glucose (mg/dL) 126 H 112 H (75-99) mg/dL Phosphorus 4.6 H (2.5-4.5) mg/dL Total Bilirubin 1.4 H (0.2-1.3) mg/dL Creatine Kinase 173 H (55-170) U/L HDL Cholesterol 28 L (40-60) mg/dL Assessment and Plan Assessment: Assessment 63 year old M with PMH of CHF, CAD, DM, sleep apnea, HTN, presents to the ED for worsening exertional SOB for the past 2 months. He was recently diagnosed with and CHF. He is admitted for management of decompensated HF. Plan Dyspnea - Likely acute decompensated HF likely 2/2 patient noncompliance of fluid restriction, complicated by Aortic stenosis and pleural effusions. - r/o ACS - Trop < 0.03 x 3, elevated CKMB x 1 - EKG shows NSR with LBBB - Continue DuoNeb. ACS ruled out CHF exacerbation - BNP 79623 - CXR shows mild decompensated CHF - CTAPE shows no PE, cardiomegaly with R>L pleural effusion, thoracic adenopathy , 4.1 cm AAA. - Patient reports cardiac angiogram at [facility] in [place] - Echo from 10/2016 shows EF 45-50% with concentric hypertrophy. - Echo 05/2018 shows EF of 35-40% with mild and severe Pulmonary HTN. - Cardiology consulted: Obtain workup from [place] system, IV diuretics. - Will need to obtain records from [facility] regarding cardiac workup. Continue Lasix 40 IV BID. Daily weights. Strict Ins and Outs. Telemetry monitoring. Low salt diet. Fluid restriction. Keep K > 4 and Mg > 2. FU Cardiology Bradycardia: HR 56-58 while started on Metoprolol. Patient asymptomatic. Telemetry monitoring. FU EKG, Cardiology : Continue Lasix 40 mg IV BID. Avoid overdiuresing and add ACEi when CHANTEL is better. FU Cardiology HTN: BP 162/96. Continue Metoprolol 50 mg PO daily, Lisinopril 10 mg PO daily. Monitor vitals, adjust medications as necessary. Lipid panel within normal limits. Continue ASA 81 mg PO daily, Lipitor 40 mg PO QHS for ASCVD risk. CHANTEL: BUN 37 Cr 1.27 likely due to dehydration. Will avoid fluids due to cardiac status. Avoid nephrotoxins. Will continue to monitor. FU BMP Transaminase: T. Bili 1.6 AST 63 ALT 66 on admission, improving on Day 2. Likely related to hepatic congestion. Acute Hep panel and Lipid panel within normal limits. AAA: 4.1 cm seen of Chest CTA. Seen on Echo in 10/2016 measuring 3.7 cm. Stable, FU outPT. Thoracic adenopathy: Likely due to pulmonary congestion. No fever or leukocytosis. Unknown etiology at this time. Will continue to monitor. Anemia: Hg 12.2 Hct 39.5 MCV 88.1. Normocytic likely AOCD. Continue FeSO4 325 mg PO daily. Rhabdomyolysis: CPK 236, mildly elevated. Possibly due to dehydration. Monitor kidney function. FU CPK DM: POC glucose 135. Will start low dose ISS. Accuchecks QID. Hypoglycemic precautions. FU A1c h/o CAD: Continue ASA 81 mg PO daily and Lipitor 40 mg PO QHS. Sleep apnea: BiPAP QHS. Depression: Paroxetine 30 mg PO daily. DVT/GI Prophylaxis: Lovenox 40 mg SUBCUT daily, Protonix 40 mg PO daily. (1) CHF (congestive heart failure) Current Visit: Yes Status: Acute Code(s): I50.9 - HEART FAILURE, UNSPECIFIED SNOMED Code(s): 70933985 (2) Aortic stenosis Current Visit: Yes Status: Acute Code(s): I35.0 - NONRHEUMATIC AORTIC (VALVE ) STENOSIS SNOMED Code(s): 30089048 (3) Dyspnea Current Visit: Yes Status: Acute Code(s): R06.00 - DYSPNEA, UNSPECIFIED SNOMED Code(s): 008529945 (4) Diabetes mellitus type 2 in obese Current Visit: Yes Status: Acute Code(s): E11.69 - TYPE 2 DIABETES MELLITUS WITH OTHER SPECIFIED COMPLICATION; E66.9 - OBESITY, UNSPECIFIED SNOMED Code(s) : 62437893 (5) Hypertension Current Visit: Yes Status: Acute Code(s): I10 - ESSENTIAL (PRIMARY) HYPERTENSION SNOMED Code(s): 53963403 (6) CAD (coronary artery disease) Current Visit: Yes Status: Acute Code(s): I25.10 - ATHSCL HEART DISEASE OF [place] CORONARY ARTERY W/O ANG PCTRS SNOMED Code(s): 00268880
[2018-05-07 16:58] LABS: Glucose,Whole Blood 120 mg/dL (75-99)
[2018-05-07 18:56] LABS: Hemoglobin A1C 5.9 % (4.0-6.0)
[2018-05-07] MEDS: ATORVASTATIN 40 MG TAB PO SCH (21:03)
[2018-05-07 21:10] LABS: Glucose,Whole Blood 153 mg/dL (75-99)
[2018-05-08] MEDS: NITROGLYCERIN OINT 1 INCH/GM PACKET TOPICAL SCH (00:13)
[2018-05-08 06:01] LABS: Glucose,Whole Blood 101 mg/dL (75-99)
[2018-05-08 06:43] LABS: Calcium 9.5 mg/dL (8.4-10.2); Potassium 4.8 mmol/L (3.5-5.1)
[2018-05-08] MEDS: PANTOPRAZOLE 40 MG TABLET PO SCH (06:50)
[2018-05-08] MEDS: FERROUS SULFATE 325 MG TAB PO SCH (08:11)
[2018-05-08] MEDS: ASPIRIN 81 MG PO SCH (08:11)
[2018-05-08] MEDS: PARoxetine 10 MG TAB PO SCH (08:11)
[2018-05-08] MEDS: LISINOPRIL 10 MG TAB PO SCH (08:11)
[2018-05-08] MEDS: METOPROLOL SUCCINATE (ER) 50 MG TAB.ER.24H PO SCH (08:11)
[2018-05-08] MEDS: FUROSEMIDE 10 MG/ML 4 ML VIAL IV SCH ×2 (08:11→20:37)
[2018-05-08] MEDS: ENOXAPARIN 40 MG/0.4 ML SYRINGE SQ SCH (08:12)
--- NOTE | 2018-05-08 10:59 | P.PN ---
Subjective Progress Note Date: 05/08/18 Principal diagnosis: CHF exacerbation Patient was seen and examined. No acute events overnight. Patient reports improvement in breathing since admission. No chest pain or dizziness. States is not quite back to baseline. Objective - Vital Signs Vital signs: Vital Signs Temp 97.4 F L 05/08/18 08:00 Pulse 59 L 05/08/18 08:00 Resp 20 05/08/18 08:00 BP 192/100 05/08/18 08:00 Pulse Ox 97 05/08/18 08:00 Intake & Output 05/07/18 05/08/18 05/08/18 18:59 06:59 18:59 Intake Total 720 180 Output Total 1250 1700 Balance -530 -1700 180 Weight 137.8 kg 133.5 kg Intake: Oral 720 180 Output: Urine 1250 1700 Other: Voiding Method Urinal Urinal - Exam General: non toxic, no distress, appears at stated age, appears short of breath Derm: warm, dry Head: atraumatic, normocephalic, symmetric Eyes: EOMI, no lid lag, anicteric sclera Mouth: no lip lesion, mucus membranes moist Cardiovascular: S1S2 reg, systolic murmur, bradycardia, no lower extremity edema Lungs: Decreased breath sounds bilaterally, no rhonchi, no rales , no accessory muscle use Abdominal: soft, nontender to palpation, obese abdomen, no appreciable organomegaly Ext: no gross muscle atrophy, no contractures Neuro: no focal neuro deficits Psych: Alert, oriented, appropriate affect - Labs CBC & Chem 7: 05/06/18 10:04 05/08/18 05:48 Labs: Abnormal Lab Results - Last 24 Hours (Table) 05/07/18 05/07/18 05/07/18 Range/Units 11:47 16:56 21:09 BUN (9-20) mg/dL POC Glucose (mg/dL) 112 H 120 H 153 H (75-99) mg/dL 05/08/18 05/08/18 Range/Units 05:48 06:00 BUN 37 H (9-20) mg/dL POC Glucose (mg/dL) 101 H (75-99) mg/dL Assessment and Plan Assessment: Assessment 63 year old M with PMH of CHF, CAD, DM, sleep apnea, HTN, presents to the ED for worsening exertional SOB for the past 2 months. He was recently diagnosed with and CHF. He is admitted for management of decompensated HF. Plan Dyspnea - Likely acute decompensated HF likely 2/2 patient noncompliance of fluid restriction, complicated by Aortic stenosis and pleural effusions. - r/o ACS - Trop < 0.03 x 3, elevated CKMB x 1 - EKG shows NSR with LBBB - Continue DuoNeb. ACS ruled out CHF exacerbation - BNP 10894 - CXR shows mild decompensated CHF - CTAPE shows no PE, cardiomegaly with R>L pleural effusion, thoracic adenopathy , 4.1 cm AAA. - Patient reports cardiac angiogram at [facility] in [place] - Echo from 10/2016 shows EF 45-50% with concentric hypertrophy. - Echo 05/2018 shows EF of 35-40% with mild and severe Pulmonary HTN. - Cardiology consulted: Obtain workup from [place] system, IV diuretics. - Discussed with JEWELRY BENCH MOLDER Mess, continue IV diuresing. Continue Lasix 40 IV BID. Daily weights. Strict Ins and Outs. Telemetry monitoring. Low salt diet. Fluid restriction. Keep K > 4 and Mg > 2. FU Cardiology Bradycardia: HR 65 while started on Metoprolol. Patient asymptomatic. Telemetry monitoring. Discussed with JEWELRY BENCH MOLDER Mess, no plans for Sx while inPT for . : Continue Lasix 40 mg IV BID. Avoid overdiuresing and add ACEi when CHANTEL is better. FU Cardiology HTN: BP 156/95. Continue Metoprolol 50 mg PO daily, Lisinopril 10 mg PO daily. Monitor vitals, adjust medications as necessary. Lipid panel within normal limits. Continue ASA 81 mg PO daily, Lipitor 40 mg PO QHS for ASCVD risk. Prerenal azotemia: BUN 37 Cr 1.10 likely due to dehydration. Will avoid fluids due to cardiac status. Avoid nephrotoxins. Will continue to monitor. FU BMP Transaminase: T. Bili 1.6 AST 63 ALT 66 on admission, improving on Day 2. Likely related to hepatic congestion. Acute Hep panel and Lipid panel within normal limits. AAA: 4.1 cm seen of Chest CTA. Seen on Echo in 10/2016 measuring 3.7 cm. Stable, FU outPT. Thoracic adenopathy: Likely due to pulmonary congestion. No fever or leukocytosis. Unknown etiology at this time. Will continue to monitor. Anemia: Hg 12.2 Hct 39.5 MCV 88.1. Normocytic likely AOCD. Continue FeSO4 325 mg PO daily. Rhabdomyolysis: CPK 142. Resolved. h/o CAD: Continue ASA 81 mg PO daily and Lipitor 40 mg PO QHS. Sleep apnea: BiPAP QHS. Depression: Paroxetine 30 mg PO daily. DVT/GI Prophylaxis: Lovenox 40 mg SUBCUT daily, Protonix 40 mg PO daily. (1) CHF (congestive heart failure) Current Visit: Yes Status: Acute Code(s): I50.9 - HEART FAILURE, UNSPECIFIED SNOMED Code(s): 83276102 (2) Aortic stenosis Current Visit: Yes Status: Acute Code(s): I35.0 - NONRHEUMATIC AORTIC (VALVE ) STENOSIS SNOMED Code(s): 10353332 (3) Dyspnea Current Visit: Yes Status: Acute Code(s): R06.00 - DYSPNEA, UNSPECIFIED SNOMED Code(s): 840855763 (4) Diabetes mellitus type 2 in obese Current Visit: Yes Status: Acute Code(s): E11.69 - TYPE 2 DIABETES MELLITUS WITH OTHER SPECIFIED COMPLICATION; E66.9 - OBESITY, UNSPECIFIED SNOMED Code(s) : 03698819 (5) Hypertension Current Visit: Yes Status: Acute Code(s): I10 - ESSENTIAL (PRIMARY) HYPERTENSION SNOMED Code(s): 42046554 (6) CAD (coronary artery disease) Current Visit: Yes Status: Acute Code(s): I25.10 - ATHSCL HEART DISEASE OF [place] CORONARY ARTERY W/O ANG PCTRS SNOMED Code(s): 49756851
[2018-05-08 11:55] VITALS: BMI 42.2
[2018-05-08 11:59] LABS: Glucose,Whole Blood 114 mg/dL (75-99)
--- NOTE | 2018-05-08 15:26 | P.PN ---
Subjective Progress Note Date: 05/08/18 This is a 63-year-old gentleman with known history of hypertension, borderline diabetes, bicuspid aortic valve with aortic stenosis, obesity, who follows regularly at the [facility]. He presents to the hospital with symptoms of progressively worsening shortness of breath with evidence of a PND and orthopnea and significant abdominal distention for approximately 2 months duration. Patient denies having any chest discomfort, no significant peripheral edema. [place] to the patient, he is followed at the [facility] by a liquor stores and agencies supervisor, he has been told that he will require valve replacement at some point. Chest x-ray on admission here reveal mild decompensated congestive heart failure. EKG shows a normal sinus rhythm with a left bundle-branch block pattern and nonspecific ST-T wave changes. CT of the chest was performed which was a slightly suboptimal study without evidence of a pulmonary embolism. Echo cardiogram with Doppler study was performed which revealed an ejection fraction of 35-40%, moderate aortic valve sclerosis mild aortic stenosis mild to moderate mitral regurg, severe pulmonary hypertension. The patient had an echocardiogram with Doppler study performed in October of last year which revealed a moderate aortic stenosis, ejection fraction at that time documented to be 45-50%. The pressure on arrival here 10/11/1989 with a heart rate in the 60s, 98% on room air. Blood pressure this morning 142/70 with a heart rate in the 50s, 98% on BiPAP. White blood cell count 9.9, hemoglobin 12.2, platelet count 333. D-dimer 1.3. Sodium 141, potassium 4.0, BUN 32, creatinine 1.2, NEC and 2.0, BNP level 14,800.Troponin 0.024, 0.017. Patient was initiated on IV Lasix on arrival here, he diuresed well through the night last night, weight down from 141-137 kg this morning. The time of my examination this morning, patient is sitting up at the side of his bed, he states that his breathing has significantly improved although he is still short of breath and quite distended and full in his abdomen. 05/08/2018 Patient seen and examined this morning, we have not received yet any records from the [place]. Overall his breathing is improving, he is diuresing well. Weight is down 4 kg yesterday. At pressure 150/90 with a heart rate in the 50s, 98% on 2 L of oxygen. Sodium 144, potassium 4.8, BUN 37, creatinine 1.1. Objective - Vital Signs Vital signs: Vital Signs Temp 97.1 F L 05/08/18 12:00 Pulse 54 L 05/08/18 12:00 Resp 20 05/08/18 12:00 BP 157/98 05/08/18 12:00 Pulse Ox 98 05/08/18 12:00 Intake & Output 05/07/18 05/08/18 05/08/18 18:59 06:59 18:59 Intake Total 720 180 Output Total 1250 1700 Balance -530 -1700 180 Weight 137.8 kg 133.5 kg 133.5 kg Intake: Oral 720 180 Output: Urine 1250 1700 Other: Voiding Method Urinal Urinal - Exam PHYSICAL EXAMINATION: GENERAL: 63-year-old gentleman in no acute distress at the time of my examination HEENT: Head is atraumatic, normocephalic. Pupils equal, round. Sclera anicteric. Conjunctiva are clear. Mucous membranes of the mouth are moist. Neck is supple. There is no elevated jugular venous pressure. No carotid bruit is heard. HEART EXAMINATION:Heart S1 S2 1 systolic murmur is heard. CHEST EXAMINATION: Lungs are clear with diminished air entry to bilateral bases. ABDOMEN:Firm, distended, obese. EXTREMITIES:2+ peripheral pulses with trace evidence of peripheral edema and no calf tenderness noted NEUROLOGIC Patient is awake, alert and oriented X3 . - Labs CBC & Chem 7: 05/06/18 10:04 05/08/18 05:48 Labs: Abnormal Lab Results - Last 24 Hours (Table) 05/07/18 05/07/18 05/08/18 Range/Units 16:56 21:09 05:48 BUN 37 H (9-20) mg/dL POC Glucose (mg/dL) 120 H 153 H (75-99) mg/dL 05/08/18 05/08/18 Range/Units 06:00 11:54 BUN (9-20) mg/dL POC Glucose (mg/dL) 101 H 114 H (75-99) mg/dL Assessment and Plan Plan: Assessment and plan #1 systolic congestive heart failure acute on chronic #2 bicuspid aortic valve with aortic valve stenosis #3 hypertension #4 hyperlipidemia #5 obesity #6 sleep apnea Plan We will continue current dose of IV Lasix, continue to monitor intake and output along with daily weights and daily lytes BUN and creatinine. Plan on possible discharge home in 24-48 hours. Patient was then been instructed to follow-up with his liquor stores and agencies supervisor at the [facility] regarding his surgery for his valve. Further recommendations to follow. DNP note has been reviewed, I agree with a documented findings and plan of care. Patient was seen and examined.
[2018-05-08 16:59] LABS: Glucose,Whole Blood 113 mg/dL (75-99)
[2018-05-08] MEDS: SODIUM CHLORIDE 0.9% 1,000 ML IV SCH (17:15)
[2018-05-08] MEDS: ATORVASTATIN 40 MG TAB PO SCH (20:37)
[2018-05-08 21:53] LABS: Glucose,Whole Blood 123 mg/dL (75-99)
[2018-05-09 06:06] LABS: Glucose,Whole Blood 122 mg/dL (75-99)
[2018-05-09] MEDS: PANTOPRAZOLE 40 MG TABLET PO SCH (06:25)
[2018-05-09 06:41] LABS: Anion Gap 12 mmol/L; Blood Urea Nitrogen 34 mg/dL (9-20); Calcium 9.2 mg/dL (8.4-10.2); Carbon Dioxide 28 mmol/L (22-30); Chloride 102 mmol/L (98-107); Glucose 100 mg/dL (74-99); Potassium 4.2 mmol/L (3.5-5.1); Sodium 142 mmol/L (137-145)
--- NOTE | 2018-05-09 07:59 | P.PN ---
Subjective Progress Note Date: 05/09/18 Principal diagnosis: Acute CHF exacerbation Patient was seen and examined. No acute events overnight. Patient reports great improvement in his breathing. Patient states he is at baseline. He denies any nausea, vomiting, chest pain, shortness of breath, palpitations, changes in urination or bowel habits. Worried about insurance cost. Review of vitals show patient is bradycardic with a heart rate of 50. Blood pressure is 164/83. He is saturating 98% on room air. Review of lab work is unremarkable except for a BUN of 34. Objective - Vital Signs Vital signs: Vital Signs Temp 97.1 F L 05/09/18 00:00 Pulse 50 L 05/09/18 03:38 Resp 21 05/09/18 03:38 BP 164/83 05/09/18 03:38 Pulse Ox 98 05/09/18 03:38 Intake & Output 05/08/18 05/09/18 05/09/18 18:59 06:59 18:59 Intake Total 478 700 Output Total 800 Balance 478 -100 Weight 133.5 kg 133.7 kg Intake: Oral 478 700 Output: Urine 800 Other: Voiding Method Toilet Urinal # Voids 3 - Exam General: non toxic, no distress, appears at stated age Derm: warm, dry Head: atraumatic, normocephalic, symmetric Eyes: EOMI, no lid lag, anicteric sclera Mouth: no lip lesion, mucus membranes moist Cardiovascular: S1S2 reg, systolic murmur, bradycardia, no lower extremity edema Lungs: Decreased breath sounds bilaterally, no rhonchi, no rales , no accessory muscle use Abdominal: soft, nontender to palpation, obese abdomen, no appreciable organomegaly Ext: no gross muscle atrophy, no contractures Neuro: no focal neuro deficits Psych: Alert, oriented, appropriate affect - Labs CBC & Chem 7: 05/06/18 10:04 05/09/18 05:38 Labs: Abnormal Lab Results - Last 24 Hours (Table) 05/08/18 05/08/18 05/08/18 Range/Units 11:54 16:57 21:41 BUN (9-20) mg/dL Glucose (74-99) mg/dL POC Glucose (mg/dL) 114 H 113 H 123 H (75-99) mg/dL 05/09/18 05/09/18 Range/Units 05:38 06:05 BUN 34 H (9-20) mg/dL Glucose 100 H (74-99) mg/dL POC Glucose (mg/dL) 122 H (75-99) mg/dL Assessment and Plan Assessment: Assessment 63 year old M with PMH of CHF, CAD, DM, sleep apnea, HTN, presents to the ED for worsening exertional SOB for the past 2 months. He was recently diagnosed with and CHF. He is admitted for management of decompensated HF. Plan Dyspnea - Likely acute decompensated HF likely 2/2 patient noncompliance of fluid restriction, complicated by Aortic stenosis and pleural effusions. - r/o ACS - Trop < 0.03 x 3, elevated CKMB x 1 - EKG shows NSR with LBBB - Continue DuoNeb. ACS ruled out 1. CHF exacerbation - BNP 59995 - CXR shows mild decompensated CHF - CTAPE shows no PE, cardiomegaly with R>L pleural effusion, thoracic adenopathy , 4.1 cm AAA. - Patient reports cardiac angiogram with vein mapping at [facility] in [place] - Echo from 10/2016 shows EF 45-50% with concentric hypertrophy. - Echo 05/2018 shows EF of 35-40% with mild and severe Pulmonary HTN. - Cardiology consulted: [facility]. - Discussed with nursing and Mess CORRECTION WORKER, IV diuresis for one more day. Daily weights. Strict Ins and Outs. Telemetry monitoring. Low salt diet. Fluid restriction. Keep K > 4 and Mg > 2. FU Cardiology 2. Prerenal azotemia: Improving. BUN 34 Cr 1.00 likely due to forced diuresis given cardiac status. Avoid nephrotoxins. Will continue to monitor. 3. Bradycardia: HR 50 while started on Metoprolol. Patient asymptomatic. Telemetry shows + chronotropic response. Will continue to monitor. 4. : Transition to Lasix PO tomorrow. Continue Lisinopril 10 mg PO daily. Discussed with CORRECTION WORKER Mess, no plans for Sx while inPT for . 5. HTN: BP 164/83. Continue Metoprolol 50 mg PO daily, Lisinopril 10 mg PO daily. Monitor vitals, adjust medications as necessary. Lipid panel within normal limits. 6. Transaminase: T. Bili 1.6 AST 63 ALT 66 on admission, improving on Day 2. Likely related to hepatic congestion. Acute Hep panel and Lipid panel within normal limits. 7. AAA: 4.1 cm seen of Chest CTA. Seen on Echo in 10/2016 measuring 3.7 cm. Stable, FU outPT. 8. Thoracic adenopathy: Likely due to pulmonary congestion. No fever or leukocytosis. Will continue to monitor. 9. Anemia: Hg 12.2 Hct 39.5 MCV 88.1. Normocytic likely AOCD. Continue FeSO4 325 mg PO daily. 10. Rhabdomyolysis: CPK 142. Resolved. 11. h/o CAD: Continue ASA 81 mg PO daily and Lipitor 40 mg PO QHS. 12. Sleep apnea: BiPAP QHS. 13. Depression: Paroxetine 30 mg PO daily. 14. DVT/GI Prophylaxis: Lovenox 40 mg SUBCUT daily, Protonix 40 mg PO daily. 15. Dispo: Patient has greatly improved. Anticipate DC tomorrow with close FU with PCP and Cardiology. Patient can either go back to the [place] or follow up at [facility] for his . (1) CHF (congestive heart failure) Current Visit: Yes Status: Acute Code(s): I50.9 - HEART FAILURE, UNSPECIFIED SNOMED Code(s): 21830339 (2) Aortic stenosis Current Visit: Yes Status: Acute Code(s): I35.0 - NONRHEUMATIC AORTIC (VALVE ) STENOSIS SNOMED Code(s): 14942959 (3) Dyspnea Current Visit: Yes Status: Acute Code(s): R06.00 - DYSPNEA, UNSPECIFIED SNOMED Code(s): 957817508 (4) Diabetes mellitus type 2 in obese Current Visit: Yes Status: Acute Code(s): E11.69 - TYPE 2 DIABETES MELLITUS WITH OTHER SPECIFIED COMPLICATION; E66.9 - OBESITY, UNSPECIFIED SNOMED Code(s) : 13070475 (5) Hypertension Current Visit: Yes Status: Acute Code(s): I10 - ESSENTIAL (PRIMARY) HYPERTENSION SNOMED Code(s): 01055622 (6) CAD (coronary artery disease) Current Visit: Yes Status: Acute Code(s): I25.10 - ATHSCL HEART DISEASE OF [place] CORONARY ARTERY W/O ANG PCTRS SNOMED Code(s): 64270355
[2018-05-09] MEDS: FUROSEMIDE 10 MG/ML 4 ML VIAL IV SCH ×2 (08:47→19:33)
[2018-05-09] MEDS: LISINOPRIL 10 MG TAB PO SCH (08:47)
[2018-05-09] MEDS: ENOXAPARIN 40 MG/0.4 ML SYRINGE SQ SCH (08:47)
[2018-05-09] MEDS: FERROUS SULFATE 325 MG TAB PO SCH (08:47)
[2018-05-09] MEDS: PARoxetine 10 MG TAB PO SCH (08:47)
[2018-05-09] MEDS: ASPIRIN 81 MG PO SCH (08:47)
[2018-05-09] MEDS: METOPROLOL SUCCINATE (ER) 50 MG TAB.ER.24H PO SCH (08:47)
[2018-05-09 11:59] LABS: Glucose,Whole Blood 121 mg/dL (75-99)
[2018-05-09] MEDS: SODIUM CHLORIDE 0.9% 1,000 ML IV SCH (15:58)
--- NOTE | 2018-05-09 16:40 | XR ---
EXAMINATION TYPE: XR chest 2V DATE OF EXAM: 05/09/2018 COMPARISON: 05/06/2018 INDICATION: CHF TECHNIQUE: Frontal and lateral views of the chest are obtained. FINDINGS: The heart size is enlarged. The pulmonary vasculature is mildly prominent. There is mild perihilar increased lung markings. Mild volume overload may be present. IMPRESSION: 1. Cardiomegaly. 2. Clinical correlation recommended for mild volume overload. This is progressive from the comparison
[2018-05-09 17:28] LABS: Glucose,Whole Blood 108 mg/dL (75-99)
[2018-05-09] MEDS: ATORVASTATIN 40 MG TAB PO SCH (19:33)
[2018-05-09 21:26] LABS: Glucose,Whole Blood 123 mg/dL (75-99)
--- NOTE | 2018-05-09 22:33 | PN ---
PROGRESS NOTE This patient was admitted with shortness of breath. The patient has been followed at the for aortic stenosis. Echocardiogram done here shows a peak gradient of 25 mmHg. First and second heart sounds are heard. There is ejection systolic murmur noted. Lungs are clinically clear to auscultation. ASSESSMENT AND PLAN: Congestive heart failure, improving. Continue the current medications. Patient will follow up with the as well as aortic stenosis is a concern. MMODL / IJN: [id number] /
[2018-05-10 06:10] LABS: Glucose,Whole Blood 101 mg/dL (75-99)
[2018-05-10 06:28] LABS: Calcium 9.3 mg/dL (8.4-10.2); Potassium 3.9 mmol/L (3.5-5.1)
[2018-05-10] MEDS: PANTOPRAZOLE 40 MG TABLET PO SCH (06:33)
[2018-05-10] MEDS: ENOXAPARIN 40 MG/0.4 ML SYRINGE SQ SCH (07:53)
[2018-05-10] MEDS: METOPROLOL SUCCINATE (ER) 50 MG TAB.ER.24H PO SCH (07:53)
[2018-05-10] MEDS: FERROUS SULFATE 325 MG TAB PO SCH (07:53)
[2018-05-10] MEDS: FUROSEMIDE 10 MG/ML 4 ML VIAL IV SCH (07:53)
[2018-05-10] MEDS: LISINOPRIL 10 MG TAB PO SCH (07:53)
[2018-05-10] MEDS: PARoxetine 10 MG TAB PO SCH (07:53)
[2018-05-10] MEDS: ASPIRIN 81 MG PO SCH (07:53)
--- NOTE | 2018-05-10 10:47 | P.PN ---
Subjective Progress Note Date: 05/10/18 Principal diagnosis: CHF exacerbation Patient was seen and examined. No acute events overnight. Patient seen sleeping with BiPAP. Patient states he is at baseline. He denies any nausea, vomiting, chest pain, shortness of breath, palpitations, changes in urination or bowel habits. Looking forward to going home. Review of vitals show patient is bradycardic with a heart rate of 71. Blood pressure is 131/52. He is saturating 97% on room air. Review of lab work shows chloride of 96, bicarb 38, BUN of 29. Objective - Vital Signs Vital signs: Vital Signs Temp 97.3 F L 05/10/18 08:00 Pulse 71 05/10/18 08:00 Resp 16 05/10/18 08:00 BP 131/52 05/10/18 08:00 Pulse Ox 97 05/10/18 08:00 Intake & Output 05/09/18 05/10/18 05/10/18 18:59 06:59 18:59 Intake Total 720 240 Output Total 400 Balance 320 240 Weight 131.7 kg Intake: Oral 720 240 Output: Urine 400 Other: Voiding Method Toilet - Exam General: non toxic, no distress, appears at stated age Derm: warm, dry Head: atraumatic, normocephalic, symmetric Eyes: EOMI, no lid lag, anicteric sclera Mouth: no lip lesion, mucus membranes moist Cardiovascular: S1S2 reg, systolic murmur, bradycardia, no lower extremity edema Lungs: Decreased breath sounds bilaterally, no rhonchi, no rales , no accessory muscle use Abdominal: soft, nontender to palpation, obese abdomen, no appreciable organomegaly Ext: no gross muscle atrophy, no contractures Neuro: no focal neuro deficits Psych: Alert, oriented, appropriate affect - Labs CBC & Chem 7: 05/06/18 10:04 05/10/18 05:41 Labs: Abnormal Lab Results - Last 24 Hours (Table) 05/09/18 05/09/18 05/09/18 Range/Units 11:56 16:49 21:14 Chloride (98-107) mmol/L Carbon Dioxide (22-30) mmol/L BUN (9-20) mg/dL POC Glucose (mg/dL) 121 H 108 H 123 H (75-99) mg/dL 08/05/18 08/05/18 Range/Units 05:41 06:08 Chloride 96 L (98-107) mmol/L Carbon Dioxide 38 H (22-30) mmol/L BUN 29 H (9-20) mg/dL POC Glucose (mg/dL) 101 H (75-99) mg/dL Assessment and Plan Assessment: Assessment 63 year old M with PMH of CHF, CAD, DM, sleep apnea, HTN, presents to the ED for worsening exertional SOB for the past 2 months. He was recently diagnosed with and CHF. He is admitted for management of decompensated HF. Plan Active Problems Dyspnea - Likely acute decompensated HF likely 2/2 patient noncompliance of fluid restriction, complicated by Aortic stenosis and pleural effusions. - r/o ACS - Trop < 0.03 x 3, elevated CKMB x 1 - EKG shows NSR with LBBB - Resolved. Continue DuoNeb. ACS ruled out 1. CHF exacerbation - BNP 65313 - CXR shows mild decompensated CHF - CTAPE shows no PE, cardiomegaly with R>L pleural effusion, thoracic adenopathy , 4.1 cm AAA. - Patient reports cardiac angiogram with vein mapping at [facility] in [place] - Echo from 10/2016 shows EF 45-50% with concentric hypertrophy. - Echo 05/2018 shows EF of 35-40% with mild and severe Pulmonary HTN. - Cardiology consulted: Obtain workup from [place] system, IV diuretics. - Transitioned to PO Lasix today. Daily weights. Strict Ins and Outs. Telemetry monitoring. Low salt diet. Fluid restriction. Keep K > 4 and Mg > 2. FU Cardiology 2. Hypochloremic Metabolic Alkalosis: Cl 96, HCO3 38. Likely due to IV Lasix, urinary loss of Cl. Will continue to monitor. 3. Prerenal azotemia: Improving. BUN 29 Cr 1.13 likely due to forced diuresis given cardiac status. Avoid nephrotoxins. Will continue to monitor. 4. Bradycardia: HR 50 while on Metoprolol. Patient asymptomatic. Telemetry shows + chronotropic response. Will continue to monitor. 5. : Mild on Echo. Continue Lisinopril 10 mg PO daily, Lasix 40 mg PO BID. Discussed with MEDIA RELATIONS COORDINATOR Mess, no plans for Sx while inPT for . FU at the [place]. 6. HTN: BP 131/52. Continue Metoprolol 50 mg PO daily, Lisinopril 10 mg PO daily. Monitor vitals, adjust medications as necessary. Chronic Problems 7. Transaminase: T. Bili 1.6 AST 63 ALT 66 on admission, improving on Day 2. Likely related to hepatic congestion. Acute Hep panel and Lipid panel are within normal limits. 8. AAA: 4.1 cm seen of Chest CTA. Seen on Echo in 10/2016 measuring 3.7 cm. Stable, FU outPT. 9. Thoracic adenopathy: Likely due to pulmonary congestion. No fever or leukocytosis. Will continue to monitor. 10. Anemia: Hg 12.2 Hct 39.5 MCV 88.1. Normocytic likely AOCD. Continue FeSO4 325 mg PO daily. 11. Rhabdomyolysis: CPK 142. Resolved. 12. h/o CAD: Lipid panel within normal limits. Continue ASA 81 mg PO daily and Lipitor 40 mg PO QHS. 13. Sleep apnea: Likely cause of pulmonary HTN. BiPAP QHS. 14. Depression: Paroxetine 30 mg PO daily. 15. DVT/GI Prophylaxis: Lovenox 40 mg SUBCUT daily, Protonix 40 mg PO daily. 16. Dispo: Patient has greatly improved. Anticipate DC today with close FU with PCP and Cardiology. Patient can either go back to the [place] or follow up at [facility] for his . (1) CHF (congestive heart failure) Current Visit: Yes Status: Acute Code(s): I50.9 - HEART FAILURE, UNSPECIFIED SNOMED Code(s): 67331791 (2) Aortic stenosis Current Visit: Yes Status: Acute Code(s): I35.0 - NONRHEUMATIC AORTIC (VALVE ) STENOSIS SNOMED Code(s): 16755675 (3) Dyspnea Current Visit: Yes Status: Acute Code(s): R06.00 - DYSPNEA, UNSPECIFIED SNOMED Code(s): 921061119 (4) Diabetes mellitus type 2 in obese Current Visit: Yes Status: Acute Code(s): E11.69 - TYPE 2 DIABETES MELLITUS WITH OTHER SPECIFIED COMPLICATION; E66.9 - OBESITY, UNSPECIFIED SNOMED Code(s) : 11386371 (5) Hypertension Current Visit: Yes Status: Acute Code(s): I10 - ESSENTIAL (PRIMARY) HYPERTENSION SNOMED Code(s): 95996728 (6) CAD (coronary artery disease) Current Visit: Yes Status: Acute Code(s): I25.10 - ATHSCL HEART DISEASE OF [place] CORONARY ARTERY W/O ANG PCTRS SNOMED Code(s): 44777006
[2018-05-10 11:46] LABS: Glucose,Whole Blood 110 mg/dL (75-99)
[2018-05-10 12:04] VITALS: BP 143/81; PULSE 53; RESP 18; TEMP 97
--- NOTE | 2018-05-10 12:33 | P.DS ---
Providers Date of admission: 05/06/18 14:36 Expected date of discharge: 05/10/18 Attending physician: Brittaney Loya DO Consults: 05/06/18 14:38 Consult Physician Routine Consulting Provider: Kimmy Altman Consult Reason/Comments: CHF, chest pain Do you want consulting provider notified?: Yes Primary care physician: Estevan Howell - Discharge Diagnosis(es) (1) CHF (congestive heart failure) Current Visit: Yes Status: Acute (2) Aortic stenosis Current Visit: Yes Status: Acute (3) Dyspnea Current Visit: Yes Status: Acute (4) Diabetes mellitus type 2 in obese Current Visit: Yes Status: Acute (5) Hypertension Current Visit: Yes Status: Acute (6) CAD (coronary artery disease) Current Visit: Yes Status: Acute (7) Hypochloremic alkalosis Current Visit: Yes Status: Acute (8) Prerenal azotemia Current Visit: Yes Status: Acute (9) Bradycardia Current Visit: Yes Status: Acute Hospital Course: Patient is a 63-year-old male with past medical history of CHF, CAD, aortic stenosis, obstructive sleep apnea, hypertension that initially presented to the ED for progressively worsening exertional shortness of breath. In the ED patient was found to have a d-dimer of 1.30, BUN of 32, AST of 63, CPK of 36, troponin of 0.02. CT enterography was performed and pulmonary embolus was ruled out but was more suggestive of pulmonary edema and CHF. Chest x-ray was consistent with CHF. Patient was given aspirin 325 mg, furosemide 40 mg IV, and a heparin drip prior to being transferred to the floors. Patient's dyspnea was likely due to acute decompensated heart failure secondary to patient noncompliance of fluid restriction, complicated by aortic stenosis and pleural effusions. Acute coronary syndrome was ruled out with troponins less than 0.033 and EKG showing normal sinus rhythm with left bundle branch block. BNP was 14,800. Echocardiogram was performed which showed an ejection fraction of 35-40% with mild aortic stenosis and severe pulmonary hypertension. Cardiology was consulted at this time and recommended diuresing the patient with Lasix 40 IV twice a day. Patient lost about 22 pounds throughout his hospitalization. Telemetry was unremarkable except for sinus bradycardia. Patient was eventually transitioned to Lasix 40 by mouth twice a day prior to discharge. Patient was found to have a prerenal azotemia during his hospitalization. His BUN on discharge was 29, improved from admission. This was thought to be secondary to forced diuresis with IV Lasix. Patient was found to be bradycardic while hospitalized. He was on Metoprolol 50 mg by mouth daily. Patient was asymptomatic during his hospitalization and was able to show a positive chronotropic response on telemetry. Patient was continued on his home dose of Lisinopril for his aortic stenosis. This was discussed with cardiology, and the decision was made for patient to follow-up at the DC in [place] for further workup and management of his aortic stenosis. Patient was found to have a mild transaminase during his hospitalization. This was likely due to hepatic congestion. Acute hepatitis panel and lipid panel were within normal limits. Patient was found to have AAA of 4.1 cm on chest CTA. Findings were consistent with what was seen on echocardiogram in October 2016, measuring 3.7 cm. Patient was found to have thoracic adenopathy on chest CTA. This was thought to be likely secondary to pulmonary congestion. He was afebrile with no leukocytosis during his hospitalization. Patient had a mild rhabdomyolysis with a CPK of 142 on admission, which resolved by discharge. He was continued on ASA 81 mg daily and Lipitor 40 mg at bedtime for his CAD. Patient was started on BiPAP at night for his sleep apnea. His home medication of peroxide teen was resumed for his depression. Patient's fluid status greatly improved with IV diuresing. Patient was discharged on 05/10/2018. Patient will be discharged with Lasix, Metoprolol, ASA, and Lipitor. Patient was advised a low-salt diet and fluid restriction. Patient was advised to follow-up with his primary care provider within 1-2 days of discharge. Patient was advised to follow-up with his template reproduction technician within 1 week of discharge. Patient was advised to follow-up at the DC for further workup and management of his aortic stenosis. Patient verbalized understanding of the plan. Pertinent Studies: Echocardiogram Chest CTA CXR Plan - Discharge Summary Discharge Rx Participant: No New Discharge Prescriptions: New RX: Furosemide [Lasix] 40 mg PO BID@0900,1600 #60 tab RX: Metoprolol Succinate (ER) [Toprol XL] 50 mg PO DAILY #30 tab.er.24h RX: Pantoprazole [Protonix] 40 mg PO AC-BRKFST tablet. Continue RX: PARoxetine HCL 30 mg PO DAILY RX: Potassium Chloride [Klor-Con 20] 20 meq PO DAILY RX: Ferrous Sulfate [Feosol] 325 mg PO DAILY RX: Atorvastatin [Lipitor] 10 mg PO HS RX: Fluticasone Nasal [place] [Flonase Nasal [place]] 1 spray EA NOSTRIL DAILY RX: Cyanocobalamin (Vitamin B-12) [Vitamin B-12] 1,000 mcg PO DAILY RX: Aspirin EC [Ecotrin Low Dose] 81 mg PO DAILY #30 tablet. RX: Lisinopril [Zestril] 10 mg PO DAILY #30 tab Discontinued RX: Indomethacin [Indocin] 25 mg PO TID PRN PRN Reason: Pain RX: Naproxen 500 mg PO BID Furosemide [Lasix] 40 mg PO TID-W/MEALS Metoprolol Succinate [Toprol Xl] 50 mg PO DAILY Discharge Medication List RX: PARoxetine HCL 30 mg PO DAILY 08/20/16 [History] RX: Atorvastatin [Lipitor] 10 mg PO HS 05/06/18 [History] RX: Cyanocobalamin (Vitamin B-12) [Vitamin B-12] 1,000 mcg PO DAILY 05/06/18 [ History] RX: Ferrous Sulfate [Feosol] 325 mg PO DAILY 05/06/18 [History] RX: Fluticasone Nasal [place] [Flonase Nasal [place]] 1 spray EA NOSTRIL DAILY 05/06 [History] RX: Potassium Chloride [Klor-Con 20] 20 meq PO DAILY 05/06/18 [History] RX: Aspirin EC [Ecotrin Low Dose] 81 mg PO DAILY #30 tablet. 05/10/18 [Rx] RX: Furosemide [Lasix] 40 mg PO BID@0900,1600 #60 tab 05/10/18 [Rx] RX: Lisinopril [Zestril] 10 mg PO DAILY #30 tab 05/10/18 [Rx] RX: Metoprolol Succinate (ER) [Toprol XL] 50 mg PO DAILY #30 tab.er.24h [Rx] RX: Pantoprazole [Protonix] 40 mg PO AC-BRKFST tablet. 05/10/18 [Rx] Follow up Appointment(s)/Referral(s): Fannie Arriaga MD [STAFF PHYSICIAN] - 1 Week (Please call and make appointment) Estevan Howell MD [Primary Care Provider] - 05/14/18 11:00 am () Ambulatory/Diagnostic Orders: Basic Metabolic Panel [LAB.AMB] Time Frame: 1 Week, Location: None Selected Patient Instructions/Handouts: Heart Failure (DC) Activity/Diet/Wound Care/Special Instructions: Diet: Low salt diet with fluid restriction. Please follow-up with your primary care provider within 1-2 days of discharge. Please follow-up with the template reproduction technician with the appointment that is provided to you. Please follow-up with your template reproduction technician at the [facility] in order to receive further management and treatment of severe aortic stenosis. Note to PCP: Please obtain a BMP within 1 week to check for resolution of patient's prerenal azotemia and hypochloremic metabolic alkalosis. Discharge Disposition: HOME SELF-CARE Pending Studies Pending Results: BMP in 1 week to be followed up with Dr. Howell.
[2018-05-10] MEDS: SODIUM CHLORIDE 0.9% 1,000 ML IV SCH (14:58)
[2018-05-10] MEDS ORDERED: FUROSEMIDE 40 MG TAB PO SCH (16:00)
== END 2018-05-10 20:04 | disposition home or self-care (01) | DRG 292 ==
LOC: EC 10:31 → 6SEL 14:36
PROVIDERS: ADMIT Internal Medicine; ATTEND Internal Medicine
DX: I11.0 Hypertensive heart disease with heart failure (principal); E87.3 Alkalosis; M62.82 Rhabdomyolysis; N17.9 Acute kidney failure, unspecified; Z68.41 Body mass index [BMI] 40.0-44.9, adult; Q23.1 Congenital insufficiency of aortic valve; I50.23 Acute on chronic systolic (congestive) heart failure; D63.8 Anemia in other chronic diseases classified elsewhere; E11.69 Type 2 diabetes mellitus with other specified complication; E66.9 Obesity, unspecified; E78.5 Hyperlipidemia, unspecified; E86.0 Dehydration; E87.8 Other disorders of electrolyte and fluid balance, not elsewhere classified; F32.9 Major depressive disorder, single episode, unspecified; G47.33 Obstructive sleep apnea (adult) (pediatric); I08.0 Rheumatic disorders of both mitral and aortic valves; I25.10 Atherosclerotic heart disease of native coronary artery without angina pectoris; I27.20 Pulmonary hypertension, unspecified; I42.9 Cardiomyopathy, unspecified; I44.7 Left bundle-branch block, unspecified; I71.4 Abdominal aortic aneurysm, without rupture; K76.1 Chronic passive congestion of liver; Z79.82 Long term (current) use of aspirin; Z79.899 Other long term (current) drug therapy; Z80.8 Family history of malignant neoplasm of other organs or systems; Z82.49 Family history of ischemic heart disease and other diseases of the circulatory system; Z91.19 Patient's noncompliance with other medical treatment and regimen; Z95.2 Presence of prosthetic heart valve; Z79.51 Long term (current) use of inhaled steroids
CPT/HCPCS: 36415; 71046; 71275; 80048; 80053; 80061; 80074; 82550; 82553; 83036; 83735; 83880; 84100; 84484; 85025; 85379; 85610; 85730; 93005; 93306; 94640; 94660; 94760; 96365; 96375; 96376; 99291

== ENCOUNTER 2018-10-01 06:49 | Day surgery (SDC) | payer OTHER ==
[2018-09-25 15:52] VITALS: BMI 43.0
[~2018-10-01 06:49] MED LIST: HYDROmorphone 0.5 MG/0.5 ML SYRINGE IVP PRN; LACTATED RINGERS 1,000 ML IV SCH; LIDOCAINE 1% 20 ML VIAL (10MG/ML) FOR IV START INTRADERMA PRN
[2018-10-01 07:11] VITALS: TEMP 97.9
[2018-10-01 07:30] LABS: Glucose,Whole Blood 103 mg/dL (75-99)
[2018-10-01] MEDS ORDERED: PROPOFOL 10 MG/ML 20 ML VIAL IV ONE (07:57)
[2018-10-01 08:45] VITALS: RESP 18
--- NOTE | 2018-10-01 08:56 | P.PCN ---
Date of Procedure: 10/01/18 Procedure(s) Performed: Procedure: Total colonoscopy. Preoperative diagnosis: Anemia. Postoperative diagnosis: Less than ideal preparation, however, no obvious abnormalities or bleeding were noted. Preparation: HalfLytely prep. Sedation: Was provided by anesthesia. Brief clinical history: The patient is 63-year-old male who is scheduled for this evaluation because of anemia with gradual decrease in his hemoglobin over the years. No overt bleeding. He had a colonoscopy with me at age 51. At this time he has no abdominal complaints, overt bleeding or anemia. No upper GI complaints. No family history of colon cancer. Procedure: With the patient on his left lateral decubitus position and after informed consent and adequate sedation, the perianal area was inspected and it did not show any fissures or fistulas. There were no masses felt on digital rectal examination. The Olympus CFH 190L video colonoscope was then inserted in the rectum in the usual fashion and advanced. Unfortunately, the preparation was less than ideal and there was significant amount of thick fecal secretions and fecal debris that I spent some time washing and trying to suction. There was no obvious large polyps or tumors or bleeding. The mucosa appeared healthy. No obvious diverticular disease or other pathology. I retroflexed the endoscope in the rectum before the endoscope was withdrawn. The patient tolerated the procedure well. Plan: I summarized the findings to the patient. Consideration can be given for an upper endoscopy if he continues to manifest evidence of bleeding and anemia. With his less than ideal preparation today, I am recommending repeat colonoscopy in 2-3 years after a 2 day prep.
[2018-10-01 08:59] VITALS: BP 143/70; PULSE 78
== END 2018-10-01 09:29 | disposition home or self-care (01) ==
LOC: ORWHC2ENDO 06:49
DX: D64.9 Anemia, unspecified (principal); I25.10 Atherosclerotic heart disease of native coronary artery without angina pectoris; E11.9 Type 2 diabetes mellitus without complications; I11.0 Hypertensive heart disease with heart failure; I50.9 Heart failure, unspecified; I35.0 Nonrheumatic aortic (valve) stenosis; E66.01 Morbid (severe) obesity due to excess calories; Z68.41 Body mass index [BMI] 40.0-44.9, adult; G47.33 Obstructive sleep apnea (adult) (pediatric); Z99.89 Dependence on other enabling machines and devices; Z79.82 Long term (current) use of aspirin; Z79.899 Other long term (current) drug therapy
CPT/HCPCS: 45378; J2704

== ENCOUNTER 2019-09-18 15:45 | Inpatient (IN) | payer OTHER ==
[2019-09-18] MEDS ORDERED: KETOROLAC 30 MG/ML 1 ML VIAL IVP STA (16:16)
--- NOTE | 2019-09-18 16:59 | ED ---
General Adult HPI - General Chief complaint: Recheck/Abnormal Lab/Rx Stated complaint: RT foot pain Time Seen by Provider: 09/18/19 16:05 Source: patient, EMS Mode of arrival: EMS Limitations: no limitations - History of Present Illness Initial comments: tthe patient is a 64-year-old male with past medical history of congestive heart failure, cellulitis and gout who presents to the emergency department with reported right lower extremity swelling. He states that it has been present for the past 4 days. He has also had extreme pain in his foot. He thought his symptoms were consistent with gout and therefore was taking his allopurinol without improvement in his symptoms. He also reports having swelling in the right lower extremity from cellulitis for which he went bacteremic. He also has a history of congestive heart failure and does occasionally swell in his lower extremities. States he's had nothing to this extent. He is on a diuretic for which he cannot name. States he has been taking his medications as directed without improvement. He denies any fevers or chills. The extremity has become difficult to ambulate on. He denies any trauma. No history of DVT or PE. No recent travel or surgery. Denies prolonged immobility. No open wounds. Denies any numbness or tingling. No history of neuropathy. When his symptoms did not improve he went to [facility] today. He was seen by Dr. Jane. He believed he was in congestive heart failure and transferred him to the hospital for admission. The patient denies any chest pain or shortness of breath. There are no other alleviating, precipitating or modifying factors - Related Data Home Medications Medication Instructions Recorded Confirmed PARoxetine HCL 30 mg PO DAILY 08/20/16 09/18/19 Potassium Chloride [Klor-Con 20] 20 meq PO DAILY 05/06/18 09/18/19 Bumetanide 2 mg PO BID 09/18/19 09/18/19 Metoprolol Succinate [Toprol XL] 75 mg PO DAILY 09/18/19 09/18/19 Spironolactone [Aldactone] 25 mg PO DAILY 09/18/19 09/18/19 Ubidecarenone [Coenzyme Q10] 100 mg PO TID 09/18/19 09/18/19 glipiZIDE [Glucotrol] 5 mg PO AC-BID 12/14/19 12/14/19 Previous Rx's Medication Instructions Recorded Aspirin EC [Ecotrin Low Dose] 81 mg PO DAILY #30 tablet. 05/10/18 Lisinopril [Zestril] 10 mg PO DAILY #30 tab 05/10/18 Doxycycline [Vibramycin] 100 mg PO BID 7 Days #14 capsule 09/20/19 Indomethacin [Indocin] 50 mg PO TID #30 capsule 09/20/19 Allergies Allergy/AdvReac Type Severity Reaction Status Date / Time No Known Allergies Allergy Verified 09/18/19 19:59 Review of Systems ROS Statement: Those systems with pertinent positive or pertinent negative responses have been documented in the HPI. ROS Other: All systems not noted in ROS Statement are negative. Past Medical History Past Medical History: Coronary Artery Disease (CAD), Heart Failure, Diabetes Mellitus, Hypertension, Sleep Apnea/CPAP/BIPAP Additional Past Medical History / Comment(s): Aortic stenosis, Sleep apnea has cpap, pulmonary edema,diet controlled diabetic History of Any Multi-Drug Resistant Organisms: None Reported Past Surgical History: Cholecystectomy, Heart Catheterization Additional Past Surgical History / Comment(s): carpal tunnel dave hand Past Anesthesia/Blood Transfusion Reactions: No Reported Reaction Past Psychological History: No Psychological Hx Reported Smoking Status: Never smoker - Past Family History Father Family Medical History: Cancer, Myocardial Infarction ([place]) Mother Family Medical History: Cancer General Exam Limitations: no limitations General appearance: alert, in no apparent distress Head exam: Present: atraumatic, normocephalic, normal inspection Eye exam: Present: normal appearance, PERRL, EOMI. Absent: scleral icterus, conjunctival injection, periorbital swelling ENT exam: Present: normal exam, mucous membranes moist Neck exam: Present: normal inspection. Absent: tenderness, meningismus, lymphadenopathy Respiratory exam: Present: normal lung sounds bilaterally. Absent: respiratory distress, wheezes, rales, rhonchi, stridor Cardiovascular Exam: Present: regular rate, normal rhythm, normal heart sounds. Absent: systolic murmur, diastolic murmur, rubs, gallop, clicks GI/Abdominal exam: Present: soft, normal bowel sounds. Absent: distended, tenderness, guarding, rebound, rigid Extremities exam: Present: normal inspection, full ROM, normal capillary refill, pedal edema (b/l le. Right > left. Right calf is warm, hot and swollen. There is erythema to the andrade. No open wounds. Patient also has a warm and swollen great toe. 5/5 muscle strength in his b/l le. cap refill <3 seconds. 2+ DP and PT pulses. No swelling around the knee or above). Absent: tenderness, joint swelling, calf tenderness Back exam: Present: normal inspection Neurological exam: Present: alert, oriented X3, CN II-XII intact Psychiatric exam: Present: normal affect, normal mood Skin exam: Present: warm, dry, intact, normal color. Absent: rash Course Vital Signs 09/18/19 09/18/19 16:08 19:00 Temperature 98.2 F 98.3 F Pulse Rate 65 59 L Respiratory 16 16 Rate Blood Pressure 132/53 150/83 O2 Sat by Pulse 98 99 Oximetry EKG Findings - EKG Comments: EKG Findings:: EKG demonstrates a normal sinus rhythm with ventricular rate of 60. CT interval 196. QRS 176. QTC of 466. There is a left bundle branch block. No sgarbossa criteria. EKG is compared to previous and appears similar Medical Decision Making - Medical Decision Making Upon arrival the patient was placed in room 23. A thorough history and physical exam was performed. A 12-lead EKG was performed which demonstrates a left bundle branch block. Patient has a history of this. I did order laboratory studies. I also ordered a chest x-ray, right foot x-ray and venous Doppler of the right lower extremity. Lab studies demonstrate a creatinine of 1.4. This is compared to previous and the patient's last value was 0.9. C-reactive protein elevated at 69.5. Uric acid is normal at 7.7. Right foot x-ray demonstrates no acute abdomen on deep the right foot chest x-ray demonstrates no acute cardiopulmonary disease venous duplex fails to demonstrate any signs of any acute DVT. I discussed results with the patient. Because he has warmth and swelling of his entire right calf I do believe this is an acute cellulitis. I did obtain blood cultures and she did patient on Unasyn and Vanco. I will hold off on allopurinol because the patient's acute kidney injury. I did provide him with gentle fluid hydration. The patient was given 15 mg of toradol for pain control which did help his pain. I discussed diagnosis, differential and treatment options. I did recommend admission to the hospital for further treatment for which the patient did agree. I called and discussed the case with Dr. Vaughn who accepted admission for the patient. Bridging orders were placed and the patient was taken to the floor in stable condition - Lab Data Result diagrams: 09/20/19 04:54 09/20/19 04:51 Lab Results 09/18/19 09/18/19 09/18/19 Range/Units 16:43 16:43 16:43 WBC 9.1 (3.8-10.6) k/uL RBC 4.06 L (4.30-5.90) m/uL Hgb 11.9 L (13.0-17.5) gm/dL Hct 36.7 L (39.0-53.0) % MCV 90.4 (80.0-100.0) fL MCH 29.3 (25.0-35.0) pg MCHC 32.5 (31.0-37.0) g/dL RDW 13.2 (11.5-15.5) % Plt Count 338 (150-450) k/uL Neutrophils % 75 % Lymphocytes % 17 % Monocytes % 5 % Eosinophils % 2 % Basophils % 0 % Neutrophils # 6.8 (1.3-7.7) k/uL Lymphocytes # 1.5 (1.0-4.8) k/uL Monocytes # 0.4 (0-1.0) k/uL Eosinophils # 0.2 (0-0.7) k/uL Basophils # 0.0 (0-0.2) k/uL PT (9.0-12.0) sec INR (<1.2) APTT (22.0-30.0) sec Sodium 139 (137-145) mmol/L Potassium 4.8 (3.5-5.1) mmol/L Chloride 103 (98-107) mmol/L Carbon Dioxide 27 (22-30) mmol/L Anion Gap 9 mmol/L BUN 25 H (9-20) mg/dL Creatinine 1.41 H (0.66-1.25) mg/dL Est GFR (CKD-EPI)AfAm 61 (>60 ml/min/1.73 sqM) Est GFR (CKD-EPI)NonAf 53 (>60 ml/min/1.73 sqM) Glucose 133 H (74-99) mg/dL POC Glucose (mg/dL) (75-99) mg/dL POC Glu Glazier Apprentice ID Plasma Lactic Acid [place] 1.2 (0.7-2.0) mmol/L Uric Acid 7.7 (3.5-8.5) mg/dL Calcium 9.5 (8.4-10.2) mg/dL Total Bilirubin 0.8 (0.2-1.3) mg/dL AST 23 (17-59) U/L ALT 20 (4-49) U/L Alkaline Phosphatase 77 (38-126) U/L C-Reactive Protein 69.5 H (<10.0) mg/L NT-Pro-B Natriuret Pep pg/mL Total Protein 8.1 (6.3-8.2) g/dL Albumin 4.5 (3.5-5.0) g/dL 09/18/19 09/18/19 09/18/19 Range/Units 16:43 16:43 19:48 WBC (3.8-10.6) k/uL RBC (4.30-5.90) m/uL Hgb (13.0-17.5) gm/dL Hct (39.0-53.0) % MCV (80.0-100.0) fL MCH (25.0-35.0) pg MCHC (31.0-37.0) g/dL RDW (11.5-15.5) % Plt Count (150-450) k/uL Neutrophils % % Lymphocytes % % Monocytes % % Eosinophils % % Basophils % % Neutrophils # (1.3-7.7) k/uL Lymphocytes # (1.0-4.8) k/uL Monocytes # (0-1.0) k/uL Eosinophils # (0-0.7) k/uL Basophils # (0-0.2) k/uL PT 10.1 (9.0-12.0) sec INR 0.9 (<1.2) APTT 22.9 (22.0-30.0) sec Sodium (137-145) mmol/L Potassium (3.5-5.1) mmol/L Chloride (98-107) mmol/L Carbon Dioxide (22-30) mmol/L Anion Gap mmol/L BUN (9-20) mg/dL Creatinine (0.66-1.25) mg/dL Est GFR (CKD-EPI)AfAm (>60 ml/min/1.73 sqM) Est GFR (CKD-EPI)NonAf (>60 ml/min/1.73 sqM) Glucose (74-99) mg/dL POC Glucose (mg/dL) 110 H (75-99) mg/dL POC Glu Glazier Apprentice ID Radha Chavarria Plasma Lactic Acid [place] (0.7-2.0) mmol/L Uric Acid (3.5-8.5) mg/dL Calcium (8.4-10.2) mg/dL Total Bilirubin (0.2-1.3) mg/dL AST (17-59) U/L ALT (4-49) U/L Alkaline Phosphatase (38-126) U/L C-Reactive Protein (<10.0) mg/L NT-Pro-B Natriuret Pep 941 pg/mL Total Protein (6.3-8.2) g/dL Albumin (3.5-5.0) g/dL 09/19/19 09/19/19 09/19/19 Range/Units 06:33 06:33 06:35 WBC 6.0 (3.8-10.6) k/uL RBC 3.45 L (4.30-5.90) m/uL Hgb 10.6 L (13.0-17.5) gm/dL Hct 32.1 L (39.0-53.0) % MCV 93.1 (80.0-100.0) fL MCH 30.6 (25.0-35.0) pg MCHC 32.9 (31.0-37.0) g/dL RDW 13.2 (11.5-15.5) % Plt Count 317 (150-450) k/uL Neutrophils % 63 % Lymphocytes % 26 % Monocytes % 7 % Eosinophils % 2 % Basophils % 1 % Neutrophils # 3.8 (1.3-7.7) k/uL Lymphocytes # 1.6 (1.0-4.8) k/uL Monocytes # 0.4 (0-1.0) k/uL Eosinophils # 0.1 (0-0.7) k/uL Basophils # 0.0 (0-0.2) k/uL PT (9.0-12.0) sec INR (<1.2) APTT (22.0-30.0) sec Sodium 139 (137-145) mmol/L Potassium 4.5 (3.5-5.1) mmol/L Chloride 105 (98-107) mmol/L Carbon Dioxide 27 (22-30) mmol/L Anion Gap 7 mmol/L BUN 29 H (9-20) mg/dL Creatinine 1.42 H (0.66-1.25) mg/dL Est GFR (CKD-EPI)AfAm 61 (>60 ml/min/1.73 sqM) Est GFR (CKD-EPI)NonAf 53 (>60 ml/min/1.73 sqM) Glucose 116 H (74-99) mg/dL POC Glucose (mg/dL) 120 H (75-99) mg/dL POC Glu Glazier Apprentice ID Melanie Hanna Plasma Lactic Acid [place] (0.7-2.0) mmol/L Uric Acid (3.5-8.5) mg/dL Calcium 8.7 (8.4-10.2) mg/dL Total Bilirubin (0.2-1.3) mg/dL AST (17-59) U/L ALT (4-49) U/L Alkaline Phosphatase (38-126) U/L C-Reactive Protein (<10.0) mg/L NT-Pro-B Natriuret Pep pg/mL Total Protein (6.3-8.2) g/dL Albumin (3.5-5.0) g/dL 09/19/19 09/19/19 09/19/19 Range/Units 11:34 16:37 20:06 WBC (3.8-10.6) k/uL RBC (4.30-5.90) m/uL Hgb (13.0-17.5) gm/dL Hct (39.0-53.0) % MCV (80.0-100.0) fL MCH (25.0-35.0) pg MCHC (31.0-37.0) g/dL RDW (11.5-15.5) % Plt Count (150-450) k/uL Neutrophils % % Lymphocytes % % Monocytes % % Eosinophils % % Basophils % % Neutrophils # (1.3-7.7) k/uL Lymphocytes # (1.0-4.8) k/uL Monocytes # (0-1.0) k/uL Eosinophils # (0-0.7) k/uL Basophils # (0-0.2) k/uL PT (9.0-12.0) sec INR (<1.2) APTT (22.0-30.0) sec Sodium (137-145) mmol/L Potassium (3.5-5.1) mmol/L Chloride (98-107) mmol/L Carbon Dioxide (22-30) mmol/L Anion Gap mmol/L BUN (9-20) mg/dL Creatinine (0.66-1.25) mg/dL Est GFR (CKD-EPI)AfAm (>60 ml/min/1.73 sqM) Est GFR (CKD-EPI)NonAf (>60 ml/min/1.73 sqM) Glucose (74-99) mg/dL POC Glucose (mg/dL) 132 H 124 H 128 H (75-99) mg/dL POC Glu Glazier Apprentice Melanie French Yolanda Bosman, Kristen Plasma Lactic Acid [place]z (0.7-2.0) mmol/L Uric Acid (3.5-8.5) mg/dL Calcium (8.4-10.2) mg/dL Total Bilirubin (0.2-1.3) mg/dL AST (17-59) U/L ALT (4-49) U/L Alkaline Phosphatase (38-126) U/L C-Reactive Protein (<10.0) mg/L NT-Pro-B Natriuret Pep pg/mL Total Protein (6.3-8.2) g/dL Albumin (3.5-5.0) g/dL 09/20/19 09/20/19 09/20/19 Range/Units 04:51 04:54 06:58 WBC 5.2 (3.8-10.6) k/uL RBC 3.39 L (4.30-5.90) m/uL Hgb 10.5 L (13.0-17.5) gm/dL Hct 31.2 L (39.0-53.0) % MCV 92.2 (80.0-100.0) fL MCH 30.9 (25.0-35.0) pg MCHC 33.5 (31.0-37.0) g/dL RDW 13.1 (11.5-15.5) % Plt Count 307 (150-450) k/uL Neutrophils % 80 % Lymphocytes % 13 % Monocytes % 4 % Eosinophils % 2 % Basophils % 0 % Neutrophils # 4.1 (1.3-7.7) k/uL Lymphocytes # 0.7 L (1.0-4.8) k/uL Monocytes # 0.2 (0-1.0) k/uL Eosinophils # 0.1 (0-0.7) k/uL Basophils # 0.0 (0-0.2) k/uL PT (9.0-12.0) sec INR (<1.2) APTT (22.0-30.0) sec Sodium 136 L (137-145) mmol/L Potassium 4.5 (3.5-5.1) mmol/L Chloride 107 (98-107) mmol/L Carbon Dioxide 22 (22-30) mmol/L Anion Gap 7 mmol/L BUN 23 H (9-20) mg/dL Creatinine 1.11 (0.66-1.25) mg/dL Est GFR (CKD-EPI)AfAm 82 (>60 ml/min/1.73 sqM) Est GFR (CKD-EPI)NonAf 71 (>60 ml/min/1.73 sqM) Glucose 124 H (74-99) mg/dL POC Glucose (mg/dL) 130 H (75-99) mg/dL POC Glu Glazier Apprentice ID Roberto Gonzalez Plasma Lactic Acid [place] (0.7-2.0) mmol/L Uric Acid (3.5-8.5) mg/dL Calcium 8.4 (8.4-10.2) mg/dL Total Bilirubin 0.7 (0.2-1.3) mg/dL AST 20 (17-59) U/L ALT 18 (4-49) U/L Alkaline Phosphatase 62 (38-126) U/L C-Reactive Protein (<10.0) mg/L NT-Pro-B Natriuret Pep pg/mL Total Protein 6.1 L (6.3-8.2) g/dL Albumin 3.1 L (3.5-5.0) g/dL Disposition Clinical Impression: Cellulitis of right lower extremity, Gout Disposition: ADMITTED IP TO THIS HOSP Condition: Stable Is patient prescribed a controlled substance at d/c from ED?: No Decision to Admit Reason: Admit from EC Decision Date: 09/18/19 Decision Time: 18:55
[2019-09-18 17:09] LABS: Basophils % (A) 0 %; Eosinophils # (A) 0.2 k/uL (0-0.7); Eosinophils % (A) 2 %; HCT 36.7 % (39.0-53.0); HGB 11.9 gm/dL (13.0-17.5); Lymphocytes # (A) 1.5 k/uL (1.0-4.8); Lymphocytes % (A) 17 %; MCH 29.3 pg (25.0-35.0); MCHC 32.5 g/dL (31.0-37.0); MCV 90.4 fL (80.0-100.0); Mean Platelet Volume 6.7; Monocytes # (A) 0.4 k/uL (0-1.0); Monocytes % (A) 5 %; Neutrophils # (A) 6.8 k/uL (1.3-7.7); Neutrophils % (A) 75 %; Platelet Count 338 k/uL (150-450); RBC 4.06 m/uL (4.30-5.90); RDW 13.2 % (11.5-15.5); WBC 9.1 k/uL (3.8-10.6)
[2019-09-18 17:20] LABS: Albumin 4.5 g/dL (3.5-5.0); C Reactive Protein 69.5 mg/L (<10.0); Calcium 9.5 mg/dL (8.4-10.2); Potassium 4.8 mmol/L (3.5-5.1); Total Bilirubin 0.8 mg/dL (0.2-1.3); Total Protein 8.1 g/dL (6.3-8.2); Uric Acid 7.7 mg/dL (3.5-8.5)
[2019-09-18 17:29] LABS: INR 0.9 (<1.2); Partial Thromboplastin Time 22.9 sec (22.0-30.0); Prothrombin Time 10.1 sec (9.0-12.0)
--- NOTE | 2019-09-18 17:37 | US ---
EXAMINATION TYPE: US venous doppler duplex LE RT DATE OF EXAM: 09/18/2019 5:24 PM COMPARISON: NONE CLINICAL HISTORY: swelling, pain. Right foot pain and swelling SIDE PERFORMED: TECHNIQUE: The lower extremity deep venous system is examined utilizing real time linear array sonog devorah with graded compression, doppler sonography and color-flow sonography. VESSELS IMAGED: Common Femoral Vein Deep Femoral Vein Greater Saphenous Vein * Femoral Vein Popliteal Vein Small Saphenous Vein * Proximal Calf Veins (* superficial vessels) Right Leg: Negative for DVT No evidence of deep venous thrombosis in the right leg.
--- NOTE | 2019-09-18 18:12 | XR ---
EXAMINATION TYPE: XR chest 2V DATE OF EXAM: 09/18/2019 COMPARISON: 05/09/2018 HISTORY: Cough TECHNIQUE: 2 views FINDINGS: Heart and mediastinum are normal. Lungs are clear. Diaphragm is normal. Bony thorax is inta ct. Pulmonary vascularity is normal. IMPRESSION: No active cardiopulmonary disease. No change.
--- NOTE | 2019-09-18 18:14 | XR ---
EXAMINATION TYPE: XR foot complete RT DATE OF EXAM: 09/18/2019 COMPARISON: NONE HISTORY: Right foot pain and swelling TECHNIQUE: 3 views FINDINGS: There is some spurring and subchondral cystic changes at the first MP joint. There is mild hallux valgus. I see no fracture nor dislocation. Metatarsals are intact. There is an Achilles calcan eal spur. IMPRESSION: No acute abnormality of the right foot. No fracture. No sign of osteomyelitis.
[2019-09-18] MEDS ORDERED: AMPICILLIN-SULBACTAM 3 GM in SODIUM CHLORIDE 0.9% 100 ML IVPB STA (18:31)
[2019-09-18] MEDS ORDERED: VANCOMYCIN 1,000 MG in SODIUM CHLORIDE 0.9% 250 ML IVPB STA (18:31)
[2019-09-18] MEDS ORDERED: VANCOMYCIN IV PER PHARMACY 1 EACH MISC MISCELLANE PRN ×2 (18:37→23:34)
[2019-09-18] MEDS ORDERED: VANCOMYCIN 2,500 MG in SODIUM CHLORIDE 0.9% 500 ML 500 ML IVPB STA (18:39)
[2019-09-18] MEDS ORDERED: NALOXONE 0.4 MG/ML 1 ML VIAL IV PRN (19:16)
[2019-09-18 19:50] LABS: Glucose,Whole Blood 110 mg/dL (75-99)
[2019-09-18] MEDS: SODIUM CHLORIDE 0.9% 1,000 ML IV SCH (20:39)
--- NOTE | 2019-09-18 23:44 | P.HPIM ---
History of Present Illness H&P Date: 09/18/19 Chief Complaint: right lower extremity pain and erythema 64-year-old male with history of diabetes, chronic CHF, recurrent gout Patient comes in with 4 day history of right lower extremity pain and erythema mainly over the right ankle and the right big toe. He reports taking triple the recommended dose of his allopurinol thinking that this is an acute gout attack and will help abort the attack. Patient reports severe pain in his right big toe and right ankle he was unable to bear weight or walk this was associated with redness warmth to the touch and pain 10 out of 10 in severity nonradiating. He recognizes that this most likely is a gout attack as he had couple in the past and started taking too many allopurinol's thinking it will help with the pain in the attack.however over the past 2 days he noticed redness over his right leg extending proximally today for which she grew concerned that this could be a cellulitis as he had an attack in the past and decided to go see his doctor recommended that he goes to the hospital. He denies any fevers or chills denies any chest pain or trouble breathing denies any injury to the leg denies any recent traveling surgery or any active cancer denies any recent hospitalization. Patient otherwise denies any nausea vomiting abdominal pain or changes in his urinary or bowel habits. In the ED his blood work showed elevated creatinine, EKG showed no acute changes compared to before patient was admitted for treatment of cellulitis and pain control of acute Review of Systems Pertinent positives as noted in HPI. All other systems were reviewed and are negative Past Medical History Past Medical History: Coronary Artery Disease (CAD), Heart Failure, Diabetes Mellitus, Hypertension, Sleep Apnea/CPAP/BIPAP Additional Past Medical History / Comment(s): Aortic stenosis, Sleep apnea has cpap, pulmonary edema,diet controlled diabetic History of Any Multi-Drug Resistant Organisms: None Reported Past Surgical History: Cholecystectomy, Heart Catheterization Additional Past Surgical History / Comment(s): carpal tunnel dave hand Past Anesthesia/Blood Transfusion Reactions: No Reported Reaction Past Psychological History: No Psychological Hx Reported Smoking Status: Never smoker - Past Family History Father Family Medical History: Cancer, Myocardial Infarction ([place]) Mother Family Medical History: Cancer Medications and Allergies Home Medications Medication Instructions Recorded Confirmed Type PARoxetine HCL 30 mg PO DAILY 08/20/16 09/18/19 History Potassium Chloride [Klor-Con 20] 20 meq PO DAILY 05/06/18 09/18/19 History Aspirin EC [Ecotrin Low Dose] 81 mg PO DAILY #30 tablet.dr 05/10/18 09/18/19 Rx Lisinopril [Zestril] 10 mg PO DAILY #30 tab 05/10/18 09/18/19 Rx Allopurinol [Zyloprim] 100 mg PO DAILY 09/18/19 09/18/19 History Bumetanide 2 mg PO BID 09/18/19 09/18/19 History Metoprolol Succinate [Toprol XL] 75 mg PO DAILY 09/18/19 09/18/19 History Spironolactone [Aldactone] 25 mg PO DAILY 09/18/19 09/18/19 History Ubidecarenone [Coenzyme Q10] 100 mg PO TID 09/18/19 09/18/19 History glipiZIDE [Glucotrol] 5 mg PO AC-BID 09/18/19 09/18/19 History Allergies Allergy/AdvReac Type Severity Reaction Status Date / Time No Known Allergies Allergy Verified 09/18/19 19:59 Physical Exam Vitals: Vital Signs Temp Pulse Pulse Resp BP BP Pulse Ox 09/18/19 20:00 98.1 F 84 18 135/76 97 09/18/19 19:00 98.3 F 59 L 16 150/83 99 09/18/19 16:08 98.2 F 65 16 132/53 98 Intake and Output 09/18/19 09/18/19 09/19/19 14:59 22:59 06:59 Intake Total 100 Balance 100 Intake: Intake, IV Titration 100 Amount Ampicillin-Sulbactam 3 gm 100 In Sodium Chloride 0.9% 100 ml @ 200 mls/hr IVPB ONCE STA Rx#:[id number] Other: Weight 141.521 kg Constitutional: No acute distress, conversant, pleasant Eyes: Anicteric sclerae, moist conjunctiva, no lid-lag Pupils equal round reactive to light ENMT: NC/AT Oropharynx clear, no erythema, exudates Neck: Supple, FROM, no masses, or JVD No carotid bruits No thyromegaly Lungs: Clear to auscultation Clear to percussion Normal respiratory effort, no accessory muscle use Cardiovascular: Heart regular in rate and rhythm, systolic murmurs, nogallops, or rubs No peripheral edema Abdominal: Soft Nontender, no guarding, rebound or rigidity Abdomen moving with respiration Normoactive bowel sounds No hepatomegaly, No splenomegaly No palpable mass No abdominal wall hernia noted Skin: Normal temperature, tone, texture, turgor No induration No subcutaneous nodules No rash, lesions No ulcers Extremities: redness over the anterior to lower thirds of the right leg slightly tender to palpation no swelling warmth, or warmth to the touch, erythema no clear demarcation Redness of the right big toe with tenderness to palpation mild swelling warmth to touch No digital cyanosis No clubbing Pedal pulses intact and symmetrical Radial pulses intact and symmetrical No calf tenderness Psychiatric: Alert and oriented to person, place and time Appropriate affect fair judgement Neuro Muscles Strength 5/5 in all 4 extremities Sensation to light touch grossly present throughout Cranial nerves II-XII grossly intact No focal sensory deficits Lymphatics: no palpable cervical or supraclavicular , or inguinal lymph nodes Results CBC & Chem 7: 09/18/19 16:43 09/18/19 16:43 Labs: Abnormal Lab Results - Last 24 Hours (Table) 09/18/19 09/18/19 09/18/19 Range/Units 16:43 16:43 19:48 RBC 4.06 L (4.30-5.90) m/uL Hgb 11.9 L (13.0-17.5) gm/dL Hct 36.7 L (39.0-53.0) % BUN 25 H (9-20) mg/dL Creatinine 1.41 H (0.66-1.25) mg/dL Glucose 133 H (74-99) mg/dL POC Glucose (mg/dL) 110 H (75-99) mg/dL C-Reactive Protein 69.5 H (<10.0) mg/L Thrombosis Risk Factor Assmnt - Choose All That Apply Each Factor Represents 1 point: Obesity (BMI >25), Swollen legs (current) Each Risk Factor Represents 2 Points: Age 61-74 years Thrombosis Risk Factor Assessment Total Risk Factor Score: 4 Thrombosis Risk Factor Assessment Level: Moderate Risk Assessment and Plan Assessment: 64-year-old male with history of diabetes systolic CHF and recurrent gout. Presented with 4 day history of right lower extremity swelling pain and redness admitted for possible cellulitis. Patient will be observed overnight with anticipated length of stay less than 2 midnights Plan: right lower extremity cellulitis Acute gout right foot Pain control avoid NSAIDs due to a chaotic Continue with morphine IV fluid hydration gentle due to history of CHF Vancomycin dosed by pharmacy Monitor vital signs Follow-up cultures Acute kidney injury most likely secondary to ATN from side effect of allopurinol Patient admits to taking too much allopurinol thinking that they will help abort the acute gout attack Avoid nephrotoxic meds Gentle IV fluid hydration Monitor urine output Follow-up renal function chronic conditions Chronic systolic CHF currently compensated continue home meds diabetes mellitus, hold oral hypoglycemic agents, continue with insulin sliding scale DVT to prophylaxis heparin subcu 3 times a day patient is full code Discussed with: Patient, ER, RN Anticipated length of stay less than [address]: home A total of extended minutes was spent on the care of this complex patient more than 50% of the time was spent in counseling and care coordination.
[2019-09-18] MEDS: HEPARIN SODIUM,PORCINE 5,000 UNIT/ML 1 ML VIAL SQ SCH (23:47)
[2019-09-19 06:39] LABS: Glucose,Whole Blood 120 mg/dL (75-99)
[2019-09-19] MEDS: INSULIN ASPART (NovoLOG) 100 UNIT/ML VIAL SQ SCH ×4 (06:51→20:12)
[2019-09-19 06:54] LABS: Basophils % (A) 1 %; Eosinophils # (A) 0.1 k/uL (0-0.7); Eosinophils % (A) 2 %; HCT 32.1 % (39.0-53.0); HGB 10.6 gm/dL (13.0-17.5); Lymphocytes # (A) 1.6 k/uL (1.0-4.8); Lymphocytes % (A) 26 %; MCH 30.6 pg (25.0-35.0); MCHC 32.9 g/dL (31.0-37.0); MCV 93.1 fL (80.0-100.0); Mean Platelet Volume 6.9; Monocytes # (A) 0.4 k/uL (0-1.0); Monocytes % (A) 7 %; Neutrophils # (A) 3.8 k/uL (1.3-7.7); Neutrophils % (A) 63 %; Platelet Count 317 k/uL (150-450); RBC 3.45 m/uL (4.30-5.90); RDW 13.2 % (11.5-15.5)
[2019-09-19] MEDS: MORPHINE SULFATE 4 MG/ML SYRINGE IV PRN (06:56)
[2019-09-19 07:06] LABS: Calcium 8.7 mg/dL (8.4-10.2); Potassium 4.5 mmol/L (3.5-5.1)
[2019-09-19] MEDS: METOPROLOL SUCCINATE (ER) 50 MG TAB.ER.24H PO SCH (07:54)
[2019-09-19] MEDS: SODIUM CHLORIDE 0.9% 1,000 ML IV SCH ×2 (07:55→22:35)
[2019-09-19] MEDS: HEPARIN SODIUM,PORCINE 5,000 UNIT/ML 1 ML VIAL SQ SCH ×3 (07:55→22:58)
[2019-09-19] MEDS: PARoxetine 10 MG TAB PO SCH (08:41)
[2019-09-19 11:35] LABS: Glucose,Whole Blood 132 mg/dL (75-99)
--- NOTE | 2019-09-19 12:49 | P.PN ---
Subjective Progress Note Date: 09/19/19 Principal diagnosis: gout, cellulitis Patient was seen and examined. No acute events overnight. Patient reports right lower extremity pain and swelling, 4-5 out of 10 in severity. States that he has some difficulty ambulating to the bathroom. States that the redness in his right lower extremity has improved slightly since admission. He denies any chest pain, shortness of breath or palpitations. No nausea or vomiting. No fever or chills. Objective - Vital Signs Vital signs: Vital Signs Temp 97.4 F L 09/19/19 07:05 Pulse 66 09/19/19 07:05 Resp 18 09/19/19 07:05 BP 128/74 09/19/19 07:05 Pulse Ox 100 09/19/19 07:05 Intake & Output 09/18/19 09/19/19 09/19/19 18:59 06:59 18:59 Intake Total 100 1080 Balance 100 1080 Weight 141.521 kg 141.521 kg Intake: Intake, IV Titration 100 Amount Ampicillin-Sulbactam 3 gm 100 In Sodium Chloride 0.9% 100 ml @ 200 mls/hr IVPB ONCE STA Rx#:[id number] Oral 480 Other 600 Other: Voiding Method Toilet # Voids 2 - Exam General: [non toxic], [no distress], [appears at stated age] Derm: [warm], [dry] Head: [atraumatic], [normocephalic], [symmetric] Eyes: [EOMI], [no lid lag], [anicteric sclera] Mouth: [no lip lesion], [mucus membranes moist] Cardiovascular: [S1S2 reg], [no murmur], [positive DP pulse bilateral], Lungs: [CTA bilateral], [no rhonchi, no rales] , [no accessory muscle use] Abdominal: [soft], [ nontender to palpation], [no guarding], [no appreciable organomegaly] Ext: [no gross muscle atrophy], [no edema], [no contractures], [right lower extremity anterior andrade erythema marked], [right ankle swelling with tenderness, limited range of motion] Neuro: [no focal neuro deficits] Psych: [Alert], [oriented], [appropriate affect] - Labs CBC & Chem 7: 09/19/19 06:33 09/19/19 06:33 Labs: Abnormal Lab Results - Last 24 Hours (Table) 09/18/19 09/18/19 09/18/19 Range/Units 16:43 16:43 19:48 RBC 4.06 L (4.30-5.90) m/uL Hgb 11.9 L (13.0-17.5) gm/dL Hct 36.7 L (39.0-53.0) % BUN 25 H (9-20) mg/dL Creatinine 1.41 H (0.66-1.25) mg/dL Glucose 133 H (74-99) mg/dL POC Glucose (mg/dL) 110 H (75-99) mg/dL C-Reactive Protein 69.5 H (<10.0) mg/L 09/19/19 09/19/19 09/19/19 Range/Units 06:33 06:33 06:35 RBC 3.45 L (4.30-5.90) m/uL Hgb 10.6 L (13.0-17.5) gm/dL Hct 32.1 L (39.0-53.0) % BUN 29 H (9-20) mg/dL Creatinine 1.42 H (0.66-1.25) mg/dL Glucose 116 H (74-99) mg/dL POC Glucose (mg/dL) 120 H (75-99) mg/dL C-Reactive Protein (<10.0) mg/L 09/19/19 Range/Units 11:34 RBC (4.30-5.90) m/uL Hgb (13.0-17.5) gm/dL Hct (39.0-53.0) % BUN (9-20) mg/dL Creatinine (0.66-1.25) mg/dL Glucose (74-99) mg/dL POC Glucose (mg/dL) 132 H (75-99) mg/dL C-Reactive Protein (<10.0) mg/L Assessment and Plan Assessment: Right lower extremity cellulitis Acute gout in the right foot Acute kidney injury most likely ATN from allopurinol Chronic conditions: Systolic CHF, diabetes mellitus, CAD Seems to be responding to vancomycin. Patient is afebrile with no leukocytosis. Plans: Switch vancomycin to ceftriaxone due to acute kidney injury. Follow blood cultures. Follow PT consult. Uric acid within normal limits. Right foot x-ray shows subchondral cystic changes in the first MP joint. Plans: Pain control. Will consider Prednisone if not improved by tomorrow. Follow PT consult. Creatinine 1.42. Plans: Gentle hydration with normal saline at 75 mL per hour. Avoid nephrotoxins. Discontinue Toradol. Discontinue vancomycin. Repeat BMP tomorrow morning. Avoid aggressive hydration due to history of systolic CHF. [Patient admitted for right lower extremity cellulitis and gout. Blood cultures pending. Needs better pain control. Creatinine currently uptrending. Likely DC in 1-2 days.]
[2019-09-19] MEDS: HYDROcodone/APAP 7.5-325MG 1 EACH TAB PO PRN ×2 (13:57→20:03)
[2019-09-19 16:39] LABS: Glucose,Whole Blood 124 mg/dL (75-99)
[2019-09-19] MEDS ORDERED: VANCOMYCIN 2,500 MG in SODIUM CHLORIDE 0.9% 500 ML 500 ML IVPB SCH (20:00)
[2019-09-19 20:07] LABS: Glucose,Whole Blood 128 mg/dL (75-99)
[2019-09-20] MEDS: MORPHINE SULFATE 4 MG/ML SYRINGE IV PRN (02:59)
[2019-09-20 05:11] LABS: Basophils % (A) 0 %; Eosinophils # (A) 0.1 k/uL (0-0.7); Eosinophils % (A) 2 %; HCT 31.2 % (39.0-53.0); HGB 10.5 gm/dL (13.0-17.5); Lymphocytes # (A) 0.7 k/uL (1.0-4.8); Lymphocytes % (A) 13 %; MCH 30.9 pg (25.0-35.0); MCHC 33.5 g/dL (31.0-37.0); MCV 92.2 fL (80.0-100.0); Mean Platelet Volume 6.6; Monocytes # (A) 0.2 k/uL (0-1.0); Monocytes % (A) 4 %; Neutrophils # (A) 4.1 k/uL (1.3-7.7); Neutrophils % (A) 80 %; Platelet Count 307 k/uL (150-450); RBC 3.39 m/uL (4.30-5.90); RDW 13.1 % (11.5-15.5); WBC 5.2 k/uL (3.8-10.6)
[2019-09-20] MEDS: HYDROcodone/APAP 7.5-325MG 1 EACH TAB PO PRN (05:18)
[2019-09-20 05:21] LABS: Albumin 3.1 g/dL (3.5-5.0); Calcium 8.4 mg/dL (8.4-10.2); Potassium 4.5 mmol/L (3.5-5.1); Total Bilirubin 0.7 mg/dL (0.2-1.3); Total Protein 6.1 g/dL (6.3-8.2)
[2019-09-20 06:59] LABS: Glucose,Whole Blood 130 mg/dL (75-99)
[2019-09-20] MEDS: INSULIN ASPART (NovoLOG) 100 UNIT/ML VIAL SQ SCH (07:29)
[2019-09-20] MEDS: METOPROLOL SUCCINATE (ER) 50 MG TAB.ER.24H PO SCH (07:51)
[2019-09-20] MEDS: HEPARIN SODIUM,PORCINE 5,000 UNIT/ML 1 ML VIAL SQ SCH (07:52)
[2019-09-20] MEDS: PARoxetine 10 MG TAB PO SCH (07:59)
[2019-09-20 08:00] VITALS: BP 150/73; RESP 20; TEMP 98.2
[2019-09-20 08:23] VITALS: PULSE 62
--- NOTE | 2019-09-20 12:53 | P.DS ---
Providers Date of admission: 09/20/19 08:26 Expected date of discharge: 09/20/19 Attending physician: Mily Zavaleat MD Primary care physician: Estevan Howell [facility] Course: Discharge diagnoses acute gout flare right foot cellulitis Acute kidney injury Type 2 diabetes Coronary artery disease Chronic systolic CHF Hospital course the patient is a 64-year-old malethat was admitted with acute gout flare after presenting with right lower extremity pain and erythema in his right ankle and big toe. The patient had precipitant seen by his PCP and was started on allopurinol, patient endorsed taking increased doses of allopurinol thinking that this would abort his acute gout attack. The patient was started on empiric IV antibioticswith IV vancomycin, IV hydration to treat his acute kidney injury suspected to be due to NSAIDs. The patient remained afebrile without leukocytosis his antibiotics were switched to Rocephin and fair of worsening his acute kidney injury. x-rays of the right foot showed no acute abnormality of th e right foot no fracture sign of osteomyelitis. there wasno evidence of DVT in the right leg. With antibiotics his lower extremity erythema resolved and withhydration his creatinine normalized. he was subsequently cleared for discharge and instructed to follow-up with his PCP. This discharge process took approximately 30 minutes. Focused exam Extremities: mild erythema resolving over his right great toe Patient Condition at Discharge: Stable Plan - Discharge Summary Discharge Rx Participant: No New Discharge Prescriptions: New Indomethacin [Indocin] 50 mg PO TID #30 capsule Doxycycline [Vibramycin] 100 mg PO BID 7 Days #14 capsule Continue PARoxetine HCL 30 mg PO DAILY Potassium Chloride [Klor-Con 20] 20 meq PO DAILY Aspirin EC [Ecotrin Low Dose] 81 mg PO DAILY #30 tablet. Lisinopril [Zestril] 10 mg PO DAILY #30 tab Spironolactone [Aldactone] 25 mg PO DAILY Metoprolol Succinate [Toprol XL] 75 mg PO DAILY glipiZIDE [Glucotrol] 5 mg PO AC-BID Ubidecarenone [Coenzyme Q10] 100 mg PO TID Bumetanide 2 mg PO BID Discontinued Allopurinol [Zyloprim] 100 mg PO DAILY Discharge Medication List PARoxetine HCL 30 mg PO DAILY 08/20/16 [History] Potassium Chloride [Klor-Con 20] 20 meq PO DAILY 05/06/18 [History] Aspirin EC [Ecotrin Low Dose] 81 mg PO DAILY #30 tablet. 05/10/18 [Rx] Lisinopril [Zestril] 10 mg PO DAILY #30 tab 05/10/18 [Rx] Bumetanide 2 mg PO BID 09/18/19 [History] Metoprolol Succinate [Toprol XL] 75 mg PO DAILY 09/18/19 [History] Spironolactone [Aldactone] 25 mg PO DAILY 09/18/19 [History] Ubidecarenone [Coenzyme Q10] 100 mg PO TID 09/18/19 [History] glipiZIDE [Glucotrol] 5 mg PO AC-BID 09/18/19 [History] Doxycycline [Vibramycin] 100 mg PO BID 7 Days #14 capsule 09/20/19 [Rx] Indomethacin [Indocin] 50 mg PO TID #30 capsule 09/20/19 [Rx] Follow up Appointment(s)/Referral(s): Estevan Howell MD [Primary Care Provider] - 3 Days Discharge Disposition: HOME SELF-CARE
== END 2019-09-20 12:06 | disposition home or self-care (01) | DRG 602 ==
LOC: EC 15:45 → 1SOBS 19:16 → OBSVTOIN 09-20 08:26
PROVIDERS: ADMIT Internal Medicine; ATTEND Internal Medicine
DX: L03.115 Cellulitis of right lower limb (principal); N17.0 Acute kidney failure with tubular necrosis; I50.22 Chronic systolic (congestive) heart failure; I11.0 Hypertensive heart disease with heart failure; M10.9 Gout, unspecified; E11.9 Type 2 diabetes mellitus without complications; T50.4X5A Adverse effect of drugs affecting uric acid metabolism, initial encounter; I25.10 Atherosclerotic heart disease of native coronary artery without angina pectoris; I35.0 Nonrheumatic aortic (valve) stenosis; I44.7 Left bundle-branch block, unspecified; G47.30 Sleep apnea, unspecified; R26.2 Difficulty in walking, not elsewhere classified; Z79.82 Long term (current) use of aspirin; Z79.899 Other long term (current) drug therapy; Z79.84 Long term (current) use of oral hypoglycemic drugs; Z90.49 Acquired absence of other specified parts of digestive tract; Z82.49 Family history of ischemic heart disease and other diseases of the circulatory system; Z80.9 Family history of malignant neoplasm, unspecified
CPT/HCPCS: 36415; 71046; 80048; 80053; 83605; 83880; 84550; 85025; 85610; 85730; 86140; 87040; 93005; 96365; 96375; 99285

== ENCOUNTER 2019-10-11 01:59 | Observation (INO) | payer OTHER ==
--- NOTE | 2019-10-11 02:16 | ED ---
Lower Extremity Injury HPI - General Chief Complaint: Extremity Injury, Lower Stated Complaint: Leg pain Time Seen by Provider: 10/11/19 02:00 Source: EMS Mode of arrival: EMS Limitations: no limitations - History of Present Illness Initial Comments: Duane is an obese 64-year-old gentleman who presents the ER today via EMS for evaluation of left great toe pain. Patient was seen and evaluated for this approximately 3 weeks ago, he was initially diagnosed with possible gout versus cellulitis and admitted the hospital, blood cultures are negative however he did improve with antibiotics was discharged home on oral antibiotics. Patient completed those a number of days ago and reports over the past day his toe is become acutely much much more painful. He is not currently on allopurinol as he had been taking extra prior to his previous admission and had acute kidney injury. - Related Data Home Medications Medication Instructions Recorded Confirmed PARoxetine HCL 30 mg PO DAILY 08/20/16 09/18/19 Potassium Chloride [Klor-Con 20] 20 meq PO DAILY 05/06/18 09/18/19 Bumetanide 2 mg PO BID 09/18/19 09/18/19 Metoprolol Succinate [Toprol XL] 75 mg PO DAILY 09/18/19 09/18/19 Spironolactone [Aldactone] 25 mg PO DAILY 09/18/19 09/18/19 Ubidecarenone [Coenzyme Q10] 100 mg PO TID 09/18/19 09/18/19 glipiZIDE [Glucotrol] 5 mg PO AC-BID 09/18/19 09/18/19 Previous Rx's Medication Instructions Recorded Aspirin EC [Ecotrin Low Dose] 81 mg PO DAILY #30 tablet. 05/10/18 Lisinopril [Zestril] 10 mg PO DAILY #30 tab 05/10/18 Doxycycline [Vibramycin] 100 mg PO BID 7 Days #14 capsule 09/20/19 Indomethacin [Indocin] 50 mg PO TID #30 capsule 09/20/19 Allergies Allergy/AdvReac Type Severity Reaction Status Date / Time No Known Allergies Allergy Verified 09/18/19 19:59 Review of Systems ROS Statement: Those systems with pertinent positive or pertinent negative responses have been documented in the HPI. ROS Other: All systems not noted in ROS Statement are negative. Past Medical History Past Medical History: Coronary Artery Disease (CAD), Heart Failure, Diabetes Mellitus, Hypertension, Sleep Apnea/CPAP/BIPAP Additional Past Medical History / Comment(s): Aortic stenosis, Sleep apnea has cpap, pulmonary edema,diet controlled diabetic History of Any Multi-Drug Resistant Organisms: None Reported Past Surgical History: Cholecystectomy, Heart Catheterization Additional Past Surgical History / Comment(s): carpal tunnel dave hand Past Anesthesia/Blood Transfusion Reactions: No Reported Reaction Past Psychological History: No Psychological Hx Reported Smoking Status: Never smoker - Past Family History Father Family Medical History: Cancer, Myocardial Infarction ([place]) Mother Family Medical History: Cancer General Exam - General Exam Comments Initial Comments: Physical Exam GENERAL: Febrile, nontoxic Uncomfortable appearing male HENT: Normocephalic, Atraumatic. EYES: PERRL, EOMI PULMONARY: Unlabored respirations CARDIOVASCULAR: RRR ABDOMEN: Obese, Soft and nontender with normal bowel sounds. SKIN: Great toe is erythematous and swollen with decreased range of motion secondary to pain, no surrounding cellulitis : Deferred NEUROLOGIC: Patient is alert and oriented x3. Moving all extremities spontaneously MUSCULOSKELETAL: Normal extremities with adequate strength and full range of motion. No lower extremity swelling or edema. No calf tenderness. PSYCHIATRIC: Normal psychiatric evaluation. Limitations: no limitations Course Vital Signs 10/11/19 10/11/19 10/11/19 02:01 03:07 04:07 Temperature 100.8 F H Pulse Rate 79 70 87 Respiratory 22 20 20 Rate Blood Pressure 137/66 140/74 138/74 O2 Sat by Pulse 99 100 100 Oximetry 10/11/19 05:30 Temperature 97.9 F Pulse Rate 70 Respiratory 24 Rate Blood Pressure 140/69 O2 Sat by Pulse 99 Oximetry Medical Decision Making - Medical Decision Making The patient was seen and evaluated, history is obtained from patient and review of medical record And 64-year-old gentleman who was previously admitted for gout versus cellulitis, was treated for cellulitis with oral antibiotics and did w ell at home. Patient returning with acute worsening of left great toe pain. The toe is very swollen and erythematous decreased range of motion secondary to joint pain. Labs including blood cultures were obtained. Patient was noted to be febrile on arrival with no other source of fever. No tachycardia, no tachypnea and no hypoxia. Labs resulted with no leukocytosis, chronic anemia, acutely worsened chronic kidney disease. Significantly elevated CRP more so than previous admission. Patient empirically treated for gout in the emergency department with colchicine 1.2 mg with repeat dose one hour later 0.6 mg as well as oral steroids 40 mg. Considering that the patient has acute kidney injury, is being given colchicine and is a diabetic will be given high-dose steroids I suspect patient will require close monitoring of his labs and admission to hospitalist Results were discussed with admitting physician Dr. Keenan, considering the patient previously improved with antibiotics, today he arrived febrile with a acutely red swollen painful toe the physical exam is concerning for gout septic arthritis cannot be ruled out especially in the setting of a fever and worsening CRP. He is agreeable to plan for admission. Recommends withhold antibiotics until he evaluates the patient as he is familiar with the patient's physical exam last month and I am not. - Lab Data Result diagrams: 10/11/19 02:18 10/11/19 02:18 Lab Results 10/11/19 10/11/19 10/11/19 Range/Units 02:18 02:18 02:18 WBC 8.2 (3.8-10.6) k/uL RBC 3.74 L (4.30-5.90) m/uL Hgb 10.8 L (13.0-17.5) gm/dL Hct 33.4 L (39.0-53.0) % MCV 89.3 (80.0-100.0) fL MCH 28.8 (25.0-35.0) pg MCHC 32.3 (31.0-37.0) g/dL RDW 13.1 (11.5-15.5) % Plt Count 306 (150-450) k/uL Neutrophils % 76 % Lymphocytes % 16 % Monocytes % 7 % Eosinophils % 1 % Basophils % 0 % Neutrophils # 6.2 (1.3-7.7) k/uL Lymphocytes # 1.3 (1.0-4.8) k/uL Monocytes # 0.5 (0-1.0) k/uL Eosinophils # 0.1 (0-0.7) k/uL Basophils # 0.0 (0-0.2) k/uL PT (9.0-12.0) sec INR (<1.2) APTT (22.0-30.0) sec Sodium 138 (137-145) mmol/L Potassium 4.6 (3.5-5.1) mmol/L Chloride 103 (98-107) mmol/L Carbon Dioxide 26 (22-30) mmol/L Anion Gap 9 mmol/L BUN 22 H (9-20) mg/dL Creatinine 1.36 H (0.66-1.25) mg/dL Est GFR (CKD-EPI)AfAm 64 (>60 ml/min/1.73 sqM) Est GFR (CKD-EPI)NonAf 55 (>60 ml/min/1.73 sqM) Glucose 122 H (74-99) mg/dL Plasma Lactic Acid [place] 1.1 (0.7-2.0) mmol/L Uric Acid 8.5 (3.5-8.5) mg/dL Calcium 9.1 (8.4-10.2) mg/dL Total Bilirubin 1.2 (0.2-1.3) mg/dL AST 21 (17-59) U/L ALT 18 (4-49) U/L Alkaline Phosphatase 83 (38-126) U/L C-Reactive Protein 154.7 H (<10.0) mg/L Total Protein 7.0 (6.3-8.2) g/dL Albumin 3.9 (3.5-5.0) g/dL 10/11/19 Range/Units 02:18 WBC (3.8-10.6) k/uL RBC (4.30-5.90) m/uL Hgb (13.0-17.5) gm/dL Hct (39.0-53.0) % MCV (80.0-100.0) fL MCH (25.0-35.0) pg MCHC (31.0-37.0) g/dL RDW (11.5-15.5) % Plt Count (150-450) k/uL Neutrophils % % Lymphocytes % % Monocytes % % Eosinophils % % Basophils % % Neutrophils # (1.3-7.7) k/uL Lymphocytes # (1.0-4.8) k/uL Monocytes # (0-1.0) k/uL Eosinophils # (0-0.7) k/uL Basophils # (0-0.2) k/uL PT 10.9 (9.0-12.0) sec INR 1.0 (<1.2) APTT 24.4 (22.0-30.0) sec Sodium (137-145) mmol/L Potassium (3.5-5.1) mmol/L Chloride (98-107) mmol/L Carbon Dioxide (22-30) mmol/L Anion Gap mmol/L BUN (9-20) mg/dL Creatinine (0.66-1.25) mg/dL Est GFR (CKD-EPI)AfAm (>60 ml/min/1.73 sqM) Est GFR (CKD-EPI)NonAf (>60 ml/min/1.73 sqM) Glucose (74-99) mg/dL Plasma Lactic Acid [place] (0.7-2.0) mmol/L Uric Acid (3.5-8.5) mg/dL Calcium (8.4-10.2) mg/dL Total Bilirubin (0.2-1.3) mg/dL AST (17-59) U/L ALT (4-49) U/L Alkaline Phosphatase (38-126) U/L C-Reactive Protein (<10.0) mg/L Total Protein (6.3-8.2) g/dL Albumin (3.5-5.0) g/dL Disposition Clinical Impression: Gout Disposition: ADMITTED IP TO THIS [facility] Condition: Stable Is patient prescribed a controlled substance at d/c from ED?: No
[2019-10-11] MEDS ORDERED: MORPHINE SULFATE 4 MG/ML SYRINGE IVP STA (02:41)
[2019-10-11] MEDS: SODIUM CHLORIDE 0.9% 500 ML 500 ML IV SCH ×2 (02:55→03:00)
[2019-10-11 03:03] LABS: Basophils % (A) 0 %; Eosinophils # (A) 0.1 k/uL (0-0.7); Eosinophils % (A) 1 %; HCT 33.4 % (39.0-53.0); HGB 10.8 gm/dL (13.0-17.5); Lymphocytes # (A) 1.3 k/uL (1.0-4.8); Lymphocytes % (A) 16 %; MCH 28.8 pg (25.0-35.0); MCHC 32.3 g/dL (31.0-37.0); MCV 89.3 fL (80.0-100.0); Mean Platelet Volume 7.3; Monocytes # (A) 0.5 k/uL (0-1.0); Monocytes % (A) 7 %; Neutrophils # (A) 6.2 k/uL (1.3-7.7); Neutrophils % (A) 76 %; Platelet Count 306 k/uL (150-450); RBC 3.74 m/uL (4.30-5.90); RDW 13.1 % (11.5-15.5); WBC 8.2 k/uL (3.8-10.6)
[2019-10-11 03:11] LABS: Partial Thromboplastin Time 24.4 sec (22.0-30.0); Prothrombin Time 10.9 sec (9.0-12.0)
[2019-10-11 03:12] LABS: Albumin 3.9 g/dL (3.5-5.0); Calcium 9.1 mg/dL (8.4-10.2); Potassium 4.6 mmol/L (3.5-5.1); Total Bilirubin 1.2 mg/dL (0.2-1.3); Uric Acid 8.5 mg/dL (3.5-8.5)
[2019-10-11 03:26] LABS: C Reactive Protein 154.7 mg/L (<10.0)
--- NOTE | 2019-10-11 03:50 | XR ---
EXAMINATION TYPE: XR toes LT big toe DATE OF EXAM: 10/11/2019 COMPARISON: NONE HISTORY: Pain TECHNIQUE: 3 views FINDINGS: There is moderate narrowing and spurring at the first MP joint. I see no fracture nor dislo cation. There are degenerative cystic changes in the first metatarsal head. There is minor spurring a t the IP joint of the big toe. 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 No definite sign of inflammatory arthritis . No fracture seen.
[2019-10-11] MEDS ORDERED: COLCHICINE 0.6 MG EACH PO STA ×2 (04:02→04:39)
[2019-10-11] MEDS ORDERED: IBUPROFEN 400 MG TAB PO PRN (04:37)
[2019-10-11] MEDS ORDERED: HYDROcodone/APAP 5-325MG 1 EACH TAB PO PRN (04:37)
[2019-10-11] MEDS ORDERED: predniSONE 20 MG TAB PO STA (04:39)
[2019-10-11 05:02] LABS: Glucose,Whole Blood 102 mg/dL (75-99)
[2019-10-11] MEDS: SODIUM CHLORIDE 0.9% 1,000 ML IV SCH ×2 (05:12→13:38)
--- NOTE | 2019-10-11 06:33 | P.HPIM ---
History of Present Illness H&P Date: 10/11/19 Chief Complaint: Left toe pain The patient is a 64-year-old male with history of type 2 diabetes, chronic CHF and recurrent gout who presents here by private vehicle with chief complaint of left great toe pain. The patient reports 3 days of left great toe increasing severe pain described as sharp numbness and tingling with increasing erythema. The patient denied any subjective fevers and chills, patient reports the pain was so severe he was unable to ambulate over the last 3 days. He reports that his blood sugars have been stable. Patient was seen here for an acute gout flare of his right great toe approximately a month ago and was discharged home on colchicine. Patient reports [facility] up [facility] and states that he was taken off his allopurinol secondary to worsening kidney function. The patient continues on diuretics due to his history of heart failure. He denies any lower extremity swelling shortness of breath or increased weight gain. In the ER the patient had a comprehensive workup, WBC was 8.2 , hemoglobin 10.8 , creatinine was 1.36 , blood sugar 122 and C-reactive protein was 154.7. X- rays of the great toe showed moderate osteoarthritis in the first MP joint no definite sign of inflammatory arthritis. The patient was noted to have a fever of 100.8. The patient was given 2 doses of colchicine and prednisone and recommended for admission Review of Systems Pertinent positives per HPI all other review of systems otherwise negative Past Medical History Past Medical History: Coronary Artery Disease (CAD), Heart Failure, Diabetes Mellitus, Hypertension, Sleep Apnea/CPAP/BIPAP Additional Past Medical History / Comment(s): Aortic stenosis, Sleep apnea has cpap, pulmonary edema,diet controlled diabetic History of Any Multi-Drug Resistant Organisms: None Reported Past Surgical History: Cholecystectomy, Heart Catheterization Additional Past Surgical History / Comment(s): carpal tunnel dave hand Past Anesthesia/Blood Transfusion Reactions: No Reported Reaction Past Psychological History: No Psychological Hx Reported Smoking Status: Never smoker - Past Family History Father Family Medical History: Cancer, Myocardial Infarction ([place]) Mother Family Medical History: Cancer Medications and Allergies Home Medications Medication Instructions Recorded Confirmed Type PARoxetine HCL 30 mg PO DAILY 08/20/16 09/18/19 History Potassium Chloride [Klor-Con 20] 20 meq PO DAILY 05/06/18 09/18/19 History Aspirin EC [Ecotrin Low Dose] 81 mg PO DAILY #30 tablet. 05/10/18 09/18/19 Rx Lisinopril [Zestril] 10 mg PO DAILY #30 tab 05/10/18 09/18/19 Rx Bumetanide 2 mg PO BID 09/18/19 09/18/19 History Metoprolol Succinate [Toprol XL] 75 mg PO DAILY 09/18/19 09/18/19 History Spironolactone [Aldactone] 25 mg PO DAILY 09/18/19 09/18/19 History Ubidecarenone [Coenzyme Q10] 100 mg PO TID 09/18/19 09/18/19 History glipiZIDE [Glucotrol] 5 mg PO AC-BID 09/18/19 09/18/19 History Doxycycline [Vibramycin] 100 mg PO BID 7 Days #14 capsule 09/20/19 Rx Indomethacin [Indocin] 50 mg PO TID #30 capsule 09/20/19 Rx Allergies Allergy/AdvReac Type Severity Reaction Status Date / Time No Known Allergies Allergy Verified 09/18/19 19:59 Physical Exam Vitals: Vital Signs Temp Pulse Resp BP Pulse Ox 10/11/19 05:30 97.9 F 70 24 140/69 99 10/11/19 04:07 87 20 138/74 100 10/11/19 03:07 70 20 140/74 100 10/11/19 02:01 100.8 F H 79 22 137/66 99 Intake and Output 10/10/19 10/10/19 10/11/19 14:59 22:59 06:59 Other: Weight 140.614 kg Constitutional: No acute distress, conversant, pleasant Eyes: Anicteric sclerae, moist conjunctiva, no lid-lag, PERRLA ENMT: NC/AT,Oropharynx clear, no erythema, exudates Neck:Supple, FROM, no masses, or JVD, No carotid bruits; No thyromegaly Lungs: Clear to auscultation, Clear to percussion, Normal respiratory effort, no accessory muscle use Cardiovascular: Heart regular in rate and rhythm, No murmurs, gallops, or rubs no peripheral edema Abdominal: Soft Nontender, nom distended, no guarding, no rebound or rigidity, Normoactive bowel sounds No hepatomegaly, No splenomegaly, No palpable mass No abdominal wall hernia noted Skin: Left great toe erythema pronounced at the first MTP joint exquisite tenderness to touch and movement. Extremities:No digital cyanosis No clubbing, Pedal pulses intact and symmetrical Radial pulses intact and symmetrical Normal gait and station, No calf tenderness Psychiatric: Alert and oriented to person, place and time, Appropriate affect Intact judgement Neuro: Muscles Strength 5/5 in all 4 extremities, Sensation to light touch grossly present throughout, Cranial nerves II-XII grossly intact. No focal sensory deficits Results CBC & Chem 7: 10/11/19 02:18 10/11/19 02:18 Labs: Abnormal Lab Results - Last 24 Hours (Table) 10/11/19 10/11/19 10/11/19 Range/Units 02:18 02:18 04:57 RBC 3.74 L (4.30-5.90) m/uL Hgb 10.8 L (13.0-17.5) gm/dL Hct 33.4 L (39.0-53.0) % BUN 22 H (9-20) mg/dL Creatinine 1.36 H (0.66-1.25) mg/dL Glucose 122 H (74-99) mg/dL POC Glucose (mg/dL) 102 H (75-99) mg/dL C-Reactive Protein 154.7 H (<10.0) mg/L Assessment and Plan Assessment: Acute gout flare Right great toe cellulitis Acute kidney injury mild Type 2 diabetes Normocytic anemia Compensated CHF of unknown type Plan: The patient is placed in observation anticipate a lesser than 2 midnight stay after presenting with left great toe pain due to suspected left great toe gout flare in a patient with a history of recurrent admissions for gouty arthritis flares, x-ray of the great toe did not show any acute inflammation but did show moderate osteoarthritis at the first MTP joint, significantly elevated CRP, and with low-grade fever we'll start empiric IV antibiotics with Zosyn, obtain MRI of the foot. We'll also initiate the patient on oral steroids and correctional scale insulin coverage with Accu-Cheks. I will hold his NSAIDs in the setting of worsening kidney injury and hydrate the patient with normal saline. We'll also check a uric acid and continue to follow his clinical course. DVT to prophylaxis heparin subcu 3 times a day patient is full code Discussed with: Patient, ER, RN Anticipated length of stay less than [address]: home A total of extended minutes was spent on the care of this complex patient more than 50% of the time was spent in counseling and care coordination.
[2019-10-11 07:30] LABS: Glucose,Whole Blood 101 mg/dL (75-99)
[2019-10-11] MEDS: INSULIN ASPART (NovoLOG) 100 UNIT/ML VIAL SQ SCH ×4 (08:35→22:01)
[2019-10-11] MEDS: predniSONE 20 MG TAB PO SCH (08:42)
[2019-10-11] MEDS: HEPARIN SODIUM,PORCINE 5,000 UNIT/ML 1 ML VIAL SQ SCH ×2 (08:42→17:15)
[2019-10-11] MEDS: MORPHINE SULFATE 4 MG/ML SYRINGE IV PRN (08:44)
[2019-10-11] MEDS: PIPERACILLIN-TAZOBACTAM 3.375 GM in SODIUM CHLORIDE 0.9% 100 ML IVPB SCH ×2 (10:41→17:15)
[2019-10-11 11:45] LABS: Glucose,Whole Blood 205 mg/dL (75-99)
--- NOTE | 2019-10-11 14:01 | P.PN ---
Subjective Progress Note Date: 10/11/19 Principal diagnosis: Left great toe pain Patient is a 64-year-old male past medical history of diabetes mellitus type 2, chronic congestive heart failure, and recurrent gout who presented to the ER with complaints of left great toe pain. In the ER he underwent extensive evaluation. On arrival here. 100.8 but his vital signs were otherwise within normal limits. Laboratory analysis showed a slight anemia with hemoglobin of 10.3, acute renal insufficiency with a creatinine of 1.36 no baseline of 1.1, an elevated CRP at 154.7. X-ray of his left toes demonstrated moderate osteoarthritis in the first and he joint with no signs of inflammatory arthritis and no fracture. He was given a dose of IV fluids, colchicine, and Motrin in the emergency department. He was admitted for possible infection of his left great toe. He is given a dose of prednisone and started on Zosyn. MRI was ordered. Patient seen and examined at bedside. He states that his pain is improving. He states that he had gout of his right great toe approximately a month ago. He denies any chest pain or shortness of breath. No nausea, vomiting, or diarrhea. Objective - Vital Signs Vital signs: Vital Signs Temp 98.1 F 10/11/19 07:00 Pulse 72 10/11/19 07:00 Resp 16 10/11/19 07:00 BP 165/76 10/11/19 07:00 Pulse Ox 100 10/11/19 07:00 Intake & Output 10/10/19 10/11/19 10/11/19 18:59 06:59 18:59 Weight 140.614 kg 140.614 kg - Exam General: non toxic, no distress, appears at stated age, obese Derm: Erythema and warmth of left great toe, edema of left foot , warm, dry Head: atraumatic, normocephalic, symmetric Eyes: EOMI, no lid lag, anicteric sclera Mouth: no lip lesion, mucus membranes moist Cardiovascular: S1S2 reg, no murmur, positive posterior tibial pulse bilateral, Lungs: Decreased breath sounds bilateral bilateral, no rhonchi, no rales , no accessory muscle use Abdominal: soft, nontender to palpation, no guarding, no appreciable organomegaly Ext: no gross muscle atrophy, + edema left foot, no contractures Neuro: CN II-XI grossly intact, no focal neuro deficits Psych: Alert, oriented, appropriate affect - Labs CBC & Chem 7: 10/11/19 02:18 10/11/19 02:18 Labs: Abnormal Lab Results - Last 24 Hours (Table) 10/11/19 10/11/19 10/11/19 Range/Units 02:18 02:18 04:57 RBC 3.74 L (4.30-5.90) m/uL Hgb 10.8 L (13.0-17.5) gm/dL Hct 33.4 L (39.0-53.0) % BUN 22 H (9-20) mg/dL Creatinine 1.36 H (0.66-1.25) mg/dL Glucose 122 H (74-99) mg/dL POC Glucose (mg/dL) 102 H (75-99) mg/dL C-Reactive Protein 154.7 H (<10.0) mg/L 10/11/19 10/11/19 Range/Units 07:23 11:34 RBC (4.30-5.90) m/uL Hgb (13.0-17.5) gm/dL Hct (39.0-53.0) % BUN (9-20) mg/dL Creatinine (0.66-1.25) mg/dL Glucose (74-99) mg/dL POC Glucose (mg/dL) 101 H 205 H (75-99) mg/dL C-Reactive Protein (<10.0) mg/L Assessment and Plan Assessment: Left great toe pain. infection vs gout flare - Continue with Zosyn -Await MRI results -Repeat CRP in a.m. -Pain control -Prednisone therapy Diabetes mellitus type 2 -Hold oral medications -Sliding-scale insulin -Follow blood sugars closely -Check hemoglobin A1c Acute kidney injury on chronic kidney disease -Hold indomethacin -Hold lisinopril, Bumex, and Aldactone -Decrease IV fluids -No additional nephrotoxic agents -Repeat creatinine in a.m. Hypertension -Continue with metoprolol -Lisinopril, Bumex, and Aldactone on hold secondary to AKA I -Follow blood pressures closely LINDA -CPAP at night Coronary artery disease -Continue with aspirin, beta lolis, not chronically on statin and will not start at this point in time DVT prophylaxis: SCDs Discussed with: Patient, nursing Anticipated discharge: 1-[address]: home A total of 25 minutes was spent on the care of this complex patient more than 50% of the time was spent in counseling and care coordination.
--- NOTE | 2019-10-11 15:41 | MR ---
EXAMINATION TYPE: MR foot LT wo con DATE OF EXAM: 10/11/2019 COMPARISON: Left toe x-rays of the same date HISTORY: Left foot pain, gout vs. septic arthritis TECHNIQUE: Standard multiplanar, multisequence MRI departmental protocol FINDINGS: There is T1 hypointense and T2 mildly mixed but predominantly intermediate intensity soft tissue thic kening at the first metatarsophalangeal joint. There is an osseous erosion of the distal head of the first metatarsal on coronal image 16 medially. There is no significant joint effusion that would be d rainable to confirm septic arthritis. Gout and osteophyte arthritis are considerations. Other small o sseous erosions are seen in the distal metatarsal head on axial image 7. There are also small osteoph ytes and bony proliferative change with opposing surface sclerosis of the first metatarsal phalangeal joint of the left foot. Subchondral cysts are seen of the tarsal bones, likely on a degenerative bas is. There is focal soft tissue swelling surrounding the first metatarsal phalangeal joint. Plantar fascial is unremarkable. Sinus tarsus is also unremarkable. Evaluation of the ligaments and t endons are limited given lqmgm-mg-dcls however the Lisfranc ligament is intact. IMPRESSION: Osseous erosion, soft tissue swelling, and subcutaneous edema surrounding the first metatarsophalange al joint. No bone marrow replacement to suggest osteomyelitis. Given the erosion or erosive osteoarth ritis, gout, or less likely septic arthritis remain possibilities and are inseparable on MRI. There i s no significant joint effusion for aspiration. Correlation with uric acid, CBC, sedimentation rate a re recommended.
[2019-10-11 17:03] LABS: Glucose,Whole Blood 239 mg/dL (75-99)
[2019-10-11 21:10] LABS: Glucose,Whole Blood 216 mg/dL (75-99)
[2019-10-11] MEDS: DOXYCYCLINE 100 MG CAP PO SCH (22:00)
[2019-10-12 00:36] VITALS: RESP 18
[2019-10-12] MEDS: PIPERACILLIN-TAZOBACTAM 3.375 GM in SODIUM CHLORIDE 0.9% 100 ML IVPB SCH ×3 (01:00→08:53)
[2019-10-12] MEDS: HEPARIN SODIUM,PORCINE 5,000 UNIT/ML 1 ML VIAL SQ SCH ×2 (01:01→08:49)
[2019-10-12 07:05] LABS: Glucose,Whole Blood 142 mg/dL (75-99)
[2019-10-12 07:36] VITALS: BP 147/80; PULSE 55; TEMP 98.1
[2019-10-12] MEDS: predniSONE 20 MG TAB PO SCH (08:50)
[2019-10-12] MEDS: INSULIN ASPART (NovoLOG) 100 UNIT/ML VIAL SQ SCH ×2 (08:50→12:38)
[2019-10-12] MEDS: DOXYCYCLINE 100 MG CAP PO SCH ×2 (08:50→08:54)
[2019-10-12] MEDS ORDERED: methylPREDNISolone SOD SUCCI 125 MG/2 ML VIAL IV STA (08:53)
[2019-10-12] MEDS ORDERED: ASPIRIN 81 MG PO SCH (09:00)
[2019-10-12] MEDS ORDERED: METOPROLOL SUCCINATE (ER) 25 MG TAB.ER.24H PO SCH (09:00)
[2019-10-12] MEDS ORDERED: PARoxetine 10 MG TAB PO SCH (09:00)
[2019-10-12] MEDS: MORPHINE SULFATE 4 MG/ML SYRINGE IV PRN (09:01)
[2019-10-12 09:53] LABS: Basophils # (A) 0.1 k/uL (0-0.2); Basophils % (A) 1 %; Eosinophils # (A) 0.1 k/uL (0-0.7); Eosinophils % (A) 2 %; HCT 32.7 % (39.0-53.0); HGB 10.6 gm/dL (13.0-17.5); Lymphocytes # (A) 2.2 k/uL (1.0-4.8); Lymphocytes % (A) 26 %; MCH 29.6 pg (25.0-35.0); MCHC 32.3 g/dL (31.0-37.0); MCV 91.7 fL (80.0-100.0); Mean Platelet Volume 7.6; Monocytes # (A) 0.4 k/uL (0-1.0); Monocytes % (A) 5 %; Neutrophils # (A) 5.4 k/uL (1.3-7.7); Neutrophils % (A) 65 %; Platelet Count 283 k/uL (150-450); RBC 3.57 m/uL (4.30-5.90); RDW 13.1 % (11.5-15.5); WBC 8.3 k/uL (3.8-10.6)
[2019-10-12 10:17] LABS: Calcium 8.9 mg/dL (8.4-10.2); Potassium 4.1 mmol/L (3.5-5.1)
[2019-10-12 11:45] LABS: Glucose,Whole Blood 150 mg/dL (75-99)
[2019-10-12 16:09] LABS: Hemoglobin A1C 6.4 % (4.0-6.0)
--- NOTE | 2019-10-12 18:39 | P.DS ---
Providers Date of admission: 10/11/19 04:39 Expected date of discharge: 10/12/19 Attending physician: Esdras Keenan MD Primary care physician: Estevan Howell [facility] Hospital Course: Discharge Diagnosis: Left great toe acute gout flare Diabetes mellitus type 2 Acute kidney injury on chronic kidney disease Hypertension Obstructive sleep apnea Coronary artery disease Hospital Course: Patient is a 64-year-old male past medical history of diabetes mellitus type 2, chronic congestive heart failure, and recurrent gout who presented to the ER with complaints of left great toe pain. In the ER he underwent extensive evaluation. On arrival here. 100.8 but his vital signs were otherwise within normal limits. Laboratory analysis showed a slight anemia with hemoglobin of 10.3, acute renal insufficiency with a creatinine of 1.36 no baseline of 1.1, an elevated CRP at 154.7. X-ray of his left toes demonstrated moderate osteoarthritis in the first and he joint with no signs of inflammatory arthritis and no fracture. He was given a dose of IV fluids, colchicine, and Motrin in the emergency department. He was admitted for possible infection of his left great toe. He is given a dose of prednisone and started on Zosyn. MRI was ordered which showed soft tissue swelling with subcutaneous edema surrounding the first metatarsal pharyngeal joint, no bone marrow replacement to suggest osteo-arthritis, this is likely erosion or erosive osteoarthritis or gout and less likely septic arthritis. No effusion was noted. His repeat laboratory analysis showed improvement of his creatinine down to 1.29, CRP had improved significantly down to 84.2. He remained afebrile and white blood cell, remained normal. Overall clinical findings are consistent with severe gout. He was started on a Medrol Dosepak after receiving one additional dose of IV steroids. Antibiotics were discontinued. He was determined stable for discharge home. He'll follow-up with Dr. Howell. I'm unsure if he has been taking allopurinol and indomethacin on an outpatient basis. He reports that he was taking allopurinol but only using as needed for gout. We discussed the proper use of allopurinol not taking it during his acute gout flare but then taking it on a chronic basis. He will discuss this with Dr. Howell at his next appointment. He was also given a short course of [place]. On discharge, the patient has been prescribed norco for the treatment of acute pain. They have been provided a 7 day supply and MAPS was checked on 10/12/19. I have counseled them on the risk of opiate medications including addiction and overdose. We also discussed that mixing opiate medications with benzodiazepines, alcohol, muscle relaxers, and other drugs that depress the central nervous system can lead to serious health risks including overdose, , and disability. I informed them that it is a felony to illegally deliver, sell, or share a controlled substance. I have instructed them that unused opiates can be disposed of at a drug take back location, which includes the [facility] and the [facility]. The Opioid start talking form has been signed. I have referred them back to their primary care physician for follow-up care. Patient seen and examined at bedside. Still having some pain in his left great toe, it was improved yesterday and then worsened again. Has been controlled with morphine. He understands discharge home as this is likely an acute gout flare. He is agreeable to taking a narcotic. Vital signs reviewed and stable. General: non toxic, no distress, appears at stated age, obese Derm: warm, dry Head: atraumatic, normocephalic, symmetric Eyes: EOMI, no lid lag, anicteric sclera Mouth: no lip lesion, mucus membranes moist Cardiovascular: S1S2 reg, no murmur, positive posterior tibial pulse bilateral, Lungs: CTA bilateral, no rhonchi, no rales , no accessory muscle use Abdominal: soft, nontender to palpation, no guarding, no appreciable organomegaly Ext: + edema without warmth or erythema of left great toe, no gross muscle atrophy, no edema, no contractures Neuro: CN II-XI grossly intact, no focal neuro deficits Psych: Alert, oriented, appropriate affect A total of 25 minutes of time were spent preparing this complex discharge summary . Patient Condition at Discharge: Stable Plan - Discharge Summary Discharge Rx Participant: No New Discharge Prescriptions: New HYDROcodone/APAP 5-325MG [[place] 5-325] 1 each PO Q4HR PRN #28 tab PRN Reason: Moderate Pain methylPREDNISolone Dose Pack [Medrol Dose Pack] 4 mg PO DIRECTED #21 package Continue PARoxetine HCL 30 mg PO DAILY Potassium Chloride [Klor-Con 20] 20 meq PO DAILY Aspirin EC [Ecotrin Low Dose] 81 mg PO DAILY #30 tablet. Lisinopril [Zestril] 10 mg PO DAILY #30 tab Spironolactone [Aldactone] 25 mg PO DAILY Metoprolol Succinate [Toprol XL] 75 mg PO DAILY glipiZIDE [Glucotrol] 5 mg PO AC-BID Ubidecarenone [Coenzyme Q10] 100 mg PO TID Bumetanide 2 mg PO BID Discontinued Indomethacin [Indocin] 50 mg PO TID #30 capsule Doxycycline [Vibramycin] 100 mg PO BID 7 Days #14 capsule Discharge Medication List PARoxetine HCL 30 mg PO DAILY 08/20/16 [History] Potassium Chloride [Klor-Con 20] 20 meq PO DAILY 05/06/18 [History] Aspirin EC [Ecotrin Low Dose] 81 mg PO DAILY #30 tablet. 05/10/18 [Rx] Lisinopril [Zestril] 10 mg PO DAILY #30 tab 05/10/18 [Rx] Bumetanide 2 mg PO BID 09/18/19 [History] Metoprolol Succinate [Toprol XL] 75 mg PO DAILY 09/18/19 [History] Spironolactone [Aldactone] 25 mg PO DAILY 09/18/19 [History] Ubidecarenone [Coenzyme Q10] 100 mg PO TID 09/18/19 [History] glipiZIDE [Glucotrol] 5 mg PO AC-BID 09/18/19 [History] HYDROcodone/APAP 5-325MG [[place] 5-325] 1 each PO Q4HR PRN #28 tab 10/12/19 [Rx] methylPREDNISolone Dose Pack [Medrol Dose Pack] 4 mg PO DIRECTED #21 package 10/12/19 [Rx] Follow up Appointment(s)/Referral(s): Estevan Howell MD [Primary Care Provider] - 10/14/19 5:15 pm Patient Instructions/Handouts: Gout (DC) Activity/Diet/Wound Care/Special Instructions: Activity: as tolerated Diet: regular Special Instructions: Follow-up with Dr. Howell regarding starting allopurinol Discharge Disposition: HOME SELF-CARE
== END 2019-10-12 13:42 | disposition home or self-care (01) ==
LOC: EC 01:59 → 6NMEDSUR 04:39
PROVIDERS: ADMIT Family Medicine; ATTEND Family Medicine
DX: M10.9 Gout, unspecified (principal); L03.032 Cellulitis of left toe; N17.9 Acute kidney failure, unspecified; E11.22 Type 2 diabetes mellitus with diabetic chronic kidney disease; I25.10 Atherosclerotic heart disease of native coronary artery without angina pectoris; I13.0 Hypertensive heart and chronic kidney disease with heart failure and stage 1 through stage 4 chronic kidney disease, or unspecified chronic kidney disease; N18.9 Chronic kidney disease, unspecified; I50.9 Heart failure, unspecified; D64.9 Anemia, unspecified; E66.9 Obesity, unspecified; G47.33 Obstructive sleep apnea (adult) (pediatric); I35.0 Nonrheumatic aortic (valve) stenosis; M19.072 Primary osteoarthritis, left ankle and foot; Z90.49 Acquired absence of other specified parts of digestive tract; Z82.49 Family history of ischemic heart disease and other diseases of the circulatory system; Z80.9 Family history of malignant neoplasm, unspecified; Z79.84 Long term (current) use of oral hypoglycemic drugs; Z79.899 Other long term (current) drug therapy; Z79.82 Long term (current) use of aspirin; Z68.41 Body mass index [BMI] 40.0-44.9, adult; Z99.89 Dependence on other enabling machines and devices
CPT/HCPCS: 96376 ×2; 96361 ×3; 96372 ×2; 96375; 96374; 99285; 36415; 80053; 80048; 83605; 84550; 85025 ×2; 85610; 85730; 86140 ×2; 87040; 83036; 73660; 73718; G0378 ×2; J2543 ×2; J2270 ×2; J1644 ×2; J2930; J7512

== ENCOUNTER → 2019-10-28 | Outpatient (CLI) | payer OTHER ==
--- NOTE | 2019-10-28 19:59 | CONS ---
CONSULTATION DATE OF SERVICE: 10/28/2019 This patient is a 64-year-old gentleman who has been evaluated in the sleep center for obstructive sleep apnea-hypopnea syndrome. HISTORY OF PRESENT ILLNESS/SLEEP-WAKE EVALUATION: The patient has history of obstructive sleep apnea for more than 10 years. He has been on treatment with CPAP for all those years and he continues to use his CPAP equipment. At present his CPAP unit is already old. His sleep schedule is from 11 a.m./2 a.m. until 7 a.m./noon. No problem with falling asleep. No TV in bedroom. The patient sleeps in different positions, wakes up from sleep several times with nocturia, even while he is using his machine. He grinds his teeth. Sometimes he is moving at night with punching his bed partner, possibly out-of- dream movements. No history of hypnagogic hallucinations, sleep paralysis or cataplexy. Tony Sleepiness Scale is 9. The patient takes one nap a day in the morning or in the afternoon. He does not feel refreshed after a nap. He does not see dreams during the nap. He drinks 3 cups of coffee in the morning. PAST MEDICAL HISTORY: Positive for hypertension, CHF, diabetes mellitus, insufficient aortic valve, gout, episodes, back problems. PAST SURGICAL HISTORY: Bilateral carpal tunnel syndrome. Cholecystectomy. SOCIAL HISTORY: Negative for smoking. Alcohol consumption occasional. FAMILY HISTORY: Hypertension, heart problems, stroke, arthritis, sleep apnea, cancer, diabetes, during sleep. REVIEW OF SYSTEMS: Awakenings from sleep with nocturia, tiredness and sleepiness during the day. The patient's weight has changed significantly over the last years since he has been on treatment with CPAP. Weight came down by about 30 pounds. PHYSICAL EXAMINATION: GENERAL: A pleasant gentleman without distress. VITAL SIGNS: BP 127/73, HR 64, RR 16, height 5 feet 11 inches, weight 314.6, temperature 98.2, oxygen saturation at room air 98%. HEENT: PERRLA, EOMI. Evaluation of oropharynx showed tongue protrudes midline. Extremely low position of soft palate. Mallampati IV. Restriction of nasal breathing. NECK: Supple. No JVD. Thyroid is not palpable. Extremely wide neck, measuring 21 inches in circumference. LUNGS: Clear to percussion and to auscultation. Good air exchange. No wheezing or rhonchi. HEART: Systolic murmur on aorta. No clear tones on aorta. ABDOMEN: Obese. EXTREMITIES: One plus ankle edema. TEACHING ARTIST: Awake, alert, and oriented X3. Cranial nerves 2 to 7 intact. There is no fasciculation or atrophy. noted. No focal deficits observed. IMPRESSION: 1. Obstructive sleep apnea for more than 10 years. The patient continues to use his CPAP equipment, but he has awakenings from sleep with nocturia and tiredness and sleepiness during the day. He takes naps even while drinking some caffeinated beverages. Extremely low position of soft palate, wide neck. 2. Obesity. The patient's weight has significantly changed since previous sleep study which was done more than 10 years ago. Weight change is a reduction of more than 30 pounds. 3. Hypertension. 4. History of congestive heart failure. 5. History of insufficient aortic valve. 6. Diabetes mellitus. 7. Episodes of , possibly episodes of anxiety. 8. Status post bilateral surgery for carpal tunnel syndrome. 9. Back problems. 10.Status post cholecystectomy. 11.History of gout. PLAN: 1. CPAP titration for re-evaluation of effective CPAP pressure at the present time. 2. Prescription for all necessary CPAP supplies. The patient should receive new CPAP unit after the sleep study is done. 3. Losing weight. 4. Sleep hygiene with regular time in bed for at least 7-1/2 to 8 hours. 5. Precautions related to driving. No driving if feeling any sleepiness. Thank you very much for referring this patient for consultation. Sincerely, Noah Gonzáles MD, PhD, FAASM Diplomat of [employer] [employer] [place] [employer] [facility] MMODL / IJN: [id number] /
== END | disposition home or self-care (01) ==
LOC: SLEEP 14:43
PROVIDERS: ATTEND Internal Medicine
DX: G47.33 Obstructive sleep apnea (adult) (pediatric) (principal); R35.1 Nocturia; R53.83 Other fatigue; E66.9 Obesity, unspecified; I10 Essential (primary) hypertension; Z86.79 Personal history of other diseases of the circulatory system; E11.9 Type 2 diabetes mellitus without complications; Z98.890 Other specified postprocedural states; Z87.39 Personal history of other diseases of the musculoskeletal system and connective tissue; Z83.6 Family history of other diseases of the respiratory system
CPT/HCPCS: 99211

== ENCOUNTER 2021-01-22 22:53 | Emergency (ER) | payer OTHER ==
--- NOTE | 2021-01-22 23:47 | XR ---
EXAMINATION TYPE: XR chest 2V DATE OF EXAM: 01/22/2021 COMPARISON: NONE HISTORY: Cough. Congestion. TECHNIQUE: 3 views FINDINGS: There are some mild increased interstitial markings bilaterally. There is pleural thickenin g along the lateral chest wall probably from pleural lipomatosis. There is no pleural effusion. Heart size is normal. There are no hilar masses. Mediastinum is normal. IMPRESSION: There are new mild interstitial infiltrates compared to old exam. Normal heart. No heart failure.
--- NOTE | 2021-01-23 00:43 | ED ---
General Adult HPI - General Chief complaint: Upper Respiratory Infection Stated complaint: SOB, cough Time Seen by Provider: 01/23/21 00:02 Source: patient, RN notes reviewed Mode of arrival: EMS Limitations: no limitations - History of Present Illness Initial comments: 65-year-old male presents emergency Department chief complaint of cough congestion runny nose shortness breath. Patient said no symptoms proximal week ago. Patient did test positive for covid today. of asthma or COPD. Patient does have mild underlying heart disease. Patient denies any GI symptoms only minimally swelling. Patient had bodyaches no known fever. - Related Data Home Medications Medication Instructions Recorded Confirmed PARoxetine HCL 30 mg PO DAILY 08/20/16 10/11/19 Potassium Chloride [Klor-Con 20] 20 meq PO DAILY 05/06/18 10/11/19 Bumetanide 2 mg PO BID 09/18/19 10/11/19 Metoprolol Succinate [Toprol XL] 75 mg PO DAILY 09/18/19 10/11/19 Spironolactone [Aldactone] 25 mg PO DAILY 09/18/19 10/11/19 Ubidecarenone [Coenzyme Q10] 100 mg PO TID 09/18/19 10/11/19 glipiZIDE [Glucotrol] 5 mg PO AC-BID 09/18/19 10/11/19 Previous Rx's Medication Instructions Recorded Aspirin EC [Ecotrin Low Dose] 81 mg PO DAILY #30 tablet. 05/10/18 lisinopriL [Zestril] 10 mg PO DAILY #30 tab 05/10/18 HYDROcodone/APAP 5-325MG [[place] 1 each PO Q4HR PRN #28 tab 10/12/19 5-325] methylPREDNISolone Dose Pack 4 mg PO DIRECTED #21 package 10/12/19 [Medrol Dose Pack] Allergies Allergy/AdvReac Type Severity Reaction Status Date / Time No Known Allergies Allergy Verified 10/11/19 11:24 Review of Systems ROS Statement: Those systems with pertinent positive or pertinent negative responses have been documented in the HPI. ROS Other: All systems not noted in ROS Statement are negative. Past Medical History Past Medical History: Coronary Artery Disease (CAD), Heart Failure, Diabetes Mellitus, Hypertension, Sleep Apnea/CPAP/BIPAP Additional Past Medical History / Comment(s): Pt recently admitted to [facility] on 09/20/19 with acute gout flare up/R foot cellulitis and acute renal injury. Other hx: Aortic stenosis, NIDDM type II, LINDA with Cpap use, bilateral tinnitis, DDD, chronic low back pain, bronchitis. History of Any Multi-Drug Resistant Organisms: None Reported Past Surgical History: Cholecystectomy, Heart Catheterization, Orthopedic Surgery Additional Past Surgical History / Comment(s): carpal tunnel dave Past Anesthesia/Blood Transfusion Reactions: No Reported Reaction Past Psychological History: No Psychological Hx Reported Smoking Status: Former smoker Past Alcohol Use History: Rare Past Drug Use History: None Reported - Past Family History Father Family Medical History: Cancer, Myocardial Infarction ([place]) Mother Family Medical History: Cancer Additional Family Medical History / Comment(s): Mother at 88yrs and pt states it was felt she might have had some form of cancer later in life. General Exam Limitations: no limitations General appearance: alert, in no apparent distress Head exam: Present: atraumatic, normocephalic, normal inspection Eye exam: Present: normal appearance, PERRL, EOMI. Absent: scleral icterus, conjunctival injection, periorbital swelling ENT exam: Present: normal exam, normal oropharynx, mucous membranes moist Neck exam: Present: normal inspection, full ROM. Absent: tenderness, meningismus, lymphadenopathy Respiratory exam: Present: normal lung sounds bilaterally. Absent: respiratory distress, wheezes, rales, rhonchi, stridor Cardiovascular Exam: Present: regular rate, normal rhythm, normal heart sounds. Absent: systolic murmur, diastolic murmur, rubs, gallop, clicks Course Vital Signs 01/22/21 23:24 Temperature 98.4 F Pulse Rate 79 Respiratory 20 Rate Blood Pressure 136/76 O2 Sat by Pulse 97 Oximetry Medical Decision Making - Medical Decision Making x-ray shows mild interstitial infiltrates, patient has positive for COVID-19. Patient will receive monoclonal antibodies. Vitals reviewedpulse ox of 97%. Otherwise - Lab Data Lab Results 01/22/21 Range/Units 23:20 Coronavirus (PCR) Detected A (Not Detectd) Disposition Clinical Impression: COVID-19 Disposition: HOME SELF-CARE Condition: Stable Instructions (If sedation given, give patient instructions): Coronavirus Disease 2019 (COVID-19) Additional Instructions: Please return to the Emergency Department if symptoms worsen or any other concerns. Is patient prescribed a controlled substance at d/c from ED?: No Referrals: None,Stated [Primary Care Provider] - 1-2 days Time of Disposition: 00:40
[2021-01-23] MEDS ORDERED: BAMLANIVIMAB (EUA) 700 MG, ETESEVIMAB (EUA) 1,400 MG in SODIUM CHLORIDE 0.9% 50 ML IVPB ONE (01:00)
[2021-01-23] MEDS ORDERED: SODIUM CHLORIDE 0.9% 50 ML IVPB ONE (01:00)
[2021-01-23 01:43] VITALS: RESP 18
[2021-01-23 02:49] VITALS: BP 116/77; PULSE 93; TEMP 98.9
== END 2021-01-23 02:56 | disposition home or self-care (01) ==
LOC: EC 22:53
DX: U07.1 COVID-19 (principal); I25.10 Atherosclerotic heart disease of native coronary artery without angina pectoris; I11.0 Hypertensive heart disease with heart failure; I50.9 Heart failure, unspecified; E11.9 Type 2 diabetes mellitus without complications; G47.33 Obstructive sleep apnea (adult) (pediatric); Z79.84 Long term (current) use of oral hypoglycemic drugs; Z79.899 Other long term (current) drug therapy; Z87.891 Personal history of nicotine dependence; Z99.89 Dependence on other enabling machines and devices
CPT/HCPCS: 87635; 71046; 99285; 96365; Q0245

== ENCOUNTER 2022-03-18 09:59 | Day surgery (SDC) | payer MEDICARE, OTHER ==
[2022-03-14 16:06] VITALS: BMI 42.6
[~2022-03-18 09:59] MED LIST changes: +ALPRAZolam 0.25 MG TAB PO PRN; +ALPRAZolam 0.5 MG TAB PO PRN; +ASPIRIN 325 MG TAB PO STA; +ATORVASTATIN 80 MG TAB PO STA; +HEPARIN SODIUM,PORCINE 10,000 UNIT in SODIUM CHLORIDE 0.9% 1,000 ML IRRIGATION PRN; +HEPARIN SODIUM,PORCINE 2,500 UNIT in SODIUM CHLORIDE 0.9% 250 ML IRRIGATION PRN; -HYDROmorphone 0.5 MG/0.5 ML SYRINGE IVP PRN; -LACTATED RINGERS 1,000 ML IV SCH; -LIDOCAINE 1% 20 ML VIAL (10MG/ML) FOR IV START INTRADERMA PRN; +NITROGLYCERIN SL TABS 0.4 MG TAB SUBLINGUAL PRN
[2022-03-18 10:33] LABS: Glucose,Whole Blood 142 mg/dL (75-99)
[2022-03-18 10:45] VITALS: TEMP 97.1
[2022-03-18] MEDS ORDERED: SODIUM CHLORIDE 0.9% 1,000 ML IV ONE (10:47)
[2022-03-18 11:11] LABS: Calcium 8.7 mg/dL (8.4-10.2); Potassium 4.7 mmol/L (3.5-5.1)
[2022-03-18] MEDS ORDERED: fentaNYL (PF) 50 MCG/ML 2 ML AMP ONE (11:53)
[2022-03-18] MEDS ORDERED: VERAPAMIL 2.5 MG/ML 2 ML AMP ONE (12:04)
[2022-03-18] MEDS ORDERED: LIDOCAINE 1% INJ 10MG/ML (5 ML VIAL-PF) SQ ONE ×2 (12:45→12:48)
[2022-03-18] MEDS: MIDAZOLAM 2 MG/2 ML VIAL IV ONE ×2 (12:50→13:35)
[2022-03-18] MEDS: fentaNYL (PF) 50 MCG/ML 2 ML AMP IV ONE ×2 (12:50→13:35)
[2022-03-18] MEDS ORDERED: VERAPAMIL SYRINGE (5 MG/10 ML) INTRAARTER ONE (12:50)
[2022-03-18] MEDS ORDERED: HEPARIN SODIUM 1,000 UN/ML (10ML VL) IV ONE ×2 (13:05→13:58)
[2022-03-18 13:14] LABS: O2 Sat Blood Gas 63.4 %
[2022-03-18 13:16] LABS: O2 Sat Blood Gas 97.5 %
[2022-03-18] MEDS ORDERED: APIXABAN 5 MG TAB PO SCH (13:30)
[2022-03-18] MEDS ORDERED: IOPAMIDOL-370 125ML BTL INJ ONE (13:35)
[2022-03-18] MEDS ORDERED: LIDOCAINE 2% INJ 20 MG/ML (2 ML VIAL) ONE (13:45)
[2022-03-18] MEDS ORDERED: PROPOFOL 10 MG/ML 20 ML VIAL IV ONE (13:45)
[2022-03-18] MEDS ORDERED: ETOMIDATE 2 MG/ML 10 ML VIAL ONE (13:45)
[2022-03-18] MEDS ORDERED: IV FLUID CONTINUATION 500 ML IV ONE (13:58)
[2022-03-18 15:11] VITALS: RESP 16
[2022-03-18] MEDS: SODIUM CHLORIDE 0.9% 1,000 ML in EMPTY BAG 1 BAG IV SCH ×2 (15:19)
[2022-03-18 17:32] VITALS: BP 118/66; PULSE 69
--- NOTE | 2022-03-18 22:20 | P.CARDCATH ---
Description of Procedure: PROCEDURES PERFORMED: Right heart catheterization, left coronary angiography INDICATION: Cardiomyopathy, s/p aortic valve replacement and aortic root repair, CKD CONSENT:I have discussed the risks, benefits and alternative therapies for the above-mentioned procedure and for both sedation/analgesia as well as necessary blood product administration, if indicated, as they pertain to this patient. The patient has indicated understanding and acceptance of the risks and procedures discussed. PROCEDURE: After the risks, benefits and alternatives of the above mentioned procedure explained in detail with the patient, informed consent was obtained. Patient was taken to the catheterization lab and prepped and draped in usual fashion. 1% lidocaine was used to anesthetize the right radial artery. A 6- [place] sheath was placed in the right radial artery using modified Seldinger technique. An 18G IV had been placed in the brachial vein previously and this was exchanged for a 6Fr sheath. A 6Fr [place] catheter was advanced into the RA, RV, PA, PCWP pressure positions and pressure measurements were performed. RA, PA and right radial O2 sats were obtained. Thermodilution was performed. The [place] catheter was removed. Left coronary angiography was performed with a 5-[place] FL 3.5 catheter. A 5-[place] FR5 catheter was inserted into the left ventricle and pressure measurements were obtained. A number of attempts were made to cannulate the RCA and contrast was attempted to be spared given CKD. A FR5, Tong Right, AR2, AL 0.75 catheter was used with only subselective imaging showing antegrade flow with what appeared to be an anterior takeoff which may have been distorted from root replacement. Given contrast load, and the global hypokinesis which would not explain the full degree of cardiomyopathy, further imaging was deferred. The right radial sheath was removed and a TR band was placed with hemostasis achieved. The right brachial sheath was pulled and pressure was held with hemostasis achieved. The patient tolerated the procedure well. Patient was transported back to the post catheterization holding area in stable condition. Conscious Sedation: Patient was monitored under the direct supervision of vision of myself for conscious sedation using Versed and fentanyl for a total duration of 56 minutes HEMODYNAMICS: Aorta: 115/88 LV: 109/3, LVEDP 15, gradient of 5mmHg with pullback across the valve PCWP: 15 with V wave of 31 PA: 44/15 (29) RV: 33/3 RA: 7 RA O2 sat: 64% PA O2 sat: 63% Right radial arterial O2 sat: 98% CO by EV: 6.54 L/min CI by EV: 2.63 L/min/m2 CO by thermo: 4.7 L/min CI by thermo: 1.89 L/min/m2 SELECTIVE CORONARY ARTERIOGRAPHY: LEFT MAIN: The left main is a large caliber vessel which bifurcates into the LAD and circumflex. There is 20-30% mid left main stenosis. LEFT ANTERIOR DESCENDING CORONARY ARTERY: LAD is a large caliber vessel which wraps around to the apex. There is diffuse proximal to mid 30% stenosis and otherwise mild luminal irregularities. LEFT CIRCUMFLEX CORONARY ARTERY: Left circumflex is a large caliber vessel with a proximal 40% stenosis and otherwise is normal. OM2 is small caliber and has a proximal 60% stenosis. RIGHT CORONARY ARTERY: The right coronary artery was not imaged. FINAL IMPRESSION: 1. Mild to moderate CAD as described above including 20-30% left main stenosis, 30% proximal to mid LAD, and 40% proximal cirucmflex with 60% proximal small caliber OM2. RCA not engaged secondary to contrast limit and difficulty engaging RCA. 2. Normal left and right sided filling pressures 3. Low normal CO/CI by EV/ Thermodilution PLAN: 1. Aggressive risk factor modification per most recent ACC/AHA guidelines. 2. Attempt to optimize heart failure regimen. Continue with maintence diuresis. 3. RCA disease would not explain severe cardiomyopathy and therefore would defer further RCA attempted angiography unless abnormal stress test or more angina.
--- NOTE | 2022-03-18 22:27 | P.TEE ---
Description of Procedure(s): Procedure performed: Transesophageal Echocardiogram with color flow doppler, pulsed wave doppler and continuous wave doppler, Cardioversion Moderate conscious sedation: Moderate conscious sedation was supplied by anesthesia, see separate report. Complications: none Indications: S/p aortic valve replacement, Afib PROCEDURE: After the risks, benefits and alternatives of the above mentioned procedure was explained in detail with the patient, informed consent was obtained. Patient was brought to the lab in a fasting state. Patient was given IV Versed and Fentanyl for sedation. The throat was sprayed with [place] to anesthetize the throat. A lubricated Omni probe was then introduced into the esophagus and stomach and multiple views were obtained. 2D echo with color flow doppler, pulsed wave doppler and continuous wave doppler was utilized. Agitated saline bubbles were injected to assess for any intra-atrial shunt. The probe was then removed. Synchronized cardioversion was performed with 200J x 1. Patient tolerated the procedure well. Patient was transferred to the post procedure area in stable and satisfactory condition. FINDINGS: 1. There is a bioprosthetic aortic valve is tricuspid with no significant aortic stenosis. There is mild decreased leaflet excursion which may be related to severe cardiomyopathy. 2. The mitral valve appears be normal with moderate central secondary mitral regurgitation. PISA radius of 0.8cm2 at [place] of 49 consistent with moderate MR. 3. Tricuspid valve appears to be normal without significant tricuspid regurgitation. 4. The interatrial septum is intact with no PFO noted. 5. Left atrial appendage is free of clot. 6. Left ventricular function is severely decreased with left ventricular ejection fraction 20-25% 7. Moderately dilated left atrium
== END 2022-03-18 17:58 | disposition home or self-care (01) ==
LOC: CATHCVL 09:59
PROVIDERS: ATTEND Internal Medicine
DX: I35.0 Nonrheumatic aortic (valve) stenosis (principal); I25.10 Atherosclerotic heart disease of native coronary artery without angina pectoris; I13.0 Hypertensive heart and chronic kidney disease with heart failure and stage 1 through stage 4 chronic kidney disease, or unspecified chronic kidney disease; E11.22 Type 2 diabetes mellitus with diabetic chronic kidney disease; I50.22 Chronic systolic (congestive) heart failure; N18.9 Chronic kidney disease, unspecified; E78.5 Hyperlipidemia, unspecified; I42.8 Other cardiomyopathies; I71.2 Thoracic aortic aneurysm, without rupture; I48.19 Other persistent atrial fibrillation; E66.9 Obesity, unspecified; I34.0 Nonrheumatic mitral (valve) insufficiency; F17.200 Nicotine dependence, unspecified, uncomplicated; Z95.3 Presence of xenogenic heart valve; Z20.822 Contact with and (suspected) exposure to COVID-19; Z68.41 Body mass index [BMI] 40.0-44.9, adult; Z79.82 Long term (current) use of aspirin; Z79.01 Long term (current) use of anticoagulants; Z79.899 Other long term (current) drug therapy; Z79.84 Long term (current) use of oral hypoglycemic drugs; Z90.49 Acquired absence of other specified parts of digestive tract; Z82.49 Family history of ischemic heart disease and other diseases of the circulatory system
CPT/HCPCS: 93312; 93320; 93325; 93460; 92960; 80048; 85018; 82810; 87635; C1887; C1769; C1894; C1751; J2250; J2001 ×2; J3010; J1644; J2704; Q9967

== ENCOUNTER → 2022-06-11 | Day surgery (SDC) | payer MEDICARE, OTHER ==
[2022-06-07 12:00] VITALS: BMI 43.3
[~2022-06-11] MED LIST changes: -ALPRAZolam 0.25 MG TAB PO PRN; -ALPRAZolam 0.5 MG TAB PO PRN; -ASPIRIN 325 MG TAB PO STA; -ATORVASTATIN 80 MG TAB PO STA; -HEPARIN SODIUM,PORCINE 10,000 UNIT in SODIUM CHLORIDE 0.9% 1,000 ML IRRIGATION PRN; -HEPARIN SODIUM,PORCINE 2,500 UNIT in SODIUM CHLORIDE 0.9% 250 ML IRRIGATION PRN; +LACTATED RINGERS 1,000 ML IV SCH; -NITROGLYCERIN SL TABS 0.4 MG TAB SUBLINGUAL PRN; +SODIUM CHLORIDE 0.9% 1,000 ML IV SCH
[2022-06-11 19:07] LABS: Glucose,Whole Blood 131 mg/dL (70-110)
[2022-06-12 07:21] LABS: Albumin 4.6 g/dL (3.5-5.0); Calcium 9.1 mg/dL (8.4-10.2); Potassium 4.7 mmol/L (3.5-5.1); Total Bilirubin 1.3 mg/dL (0.2-1.3); Total Protein 7.8 g/dL (6.3-8.2)
[2022-06-12 07:22] LABS: Basophils # (A) 0.1 k/uL (0-0.2); Basophils % (A) 1 %; Eosinophils # (A) 0.2 k/uL (0-0.7); Eosinophils % (A) 2 %; HCT 44.3 % (39.0-53.0); HGB 14.8 gm/dL (13.0-17.5); Lymphocytes % (A) 30 %; MCH 30.5 pg (25.0-35.0); MCHC 33.3 g/dL (31.0-37.0); MCV 91.5 fL (80.0-100.0); Mean Platelet Volume 7.1; Monocytes # (A) 0.5 k/uL (0-1.0); Monocytes % (A) 7 %; Neutrophils # (A) 3.9 k/uL (1.3-7.7); Neutrophils % (A) 58 %; Platelet Count 218 k/uL (150-450); RBC 4.84 m/uL (4.30-5.90); RDW 15.5 % (11.5-15.5); WBC 6.7 k/uL (3.8-10.6)
== END | disposition home or self-care (01) ==
LOC: CATHEP 12:24
PROVIDERS: ATTEND Internal Medicine Clinical Cardiac Electrophysiology
DX: I48.19 Other persistent atrial fibrillation (principal); I35.0 Nonrheumatic aortic (valve) stenosis; I42.8 Other cardiomyopathies; I13.0 Hypertensive heart and chronic kidney disease with heart failure and stage 1 through stage 4 chronic kidney disease, or unspecified chronic kidney disease; I50.22 Chronic systolic (congestive) heart failure; N18.32 Chronic kidney disease, stage 3b; E11.22 Type 2 diabetes mellitus with diabetic chronic kidney disease; E78.5 Hyperlipidemia, unspecified; I44.7 Left bundle-branch block, unspecified; I34.0 Nonrheumatic mitral (valve) insufficiency; E66.9 Obesity, unspecified; Z79.01 Long term (current) use of anticoagulants; Z79.899 Other long term (current) drug therapy; Z95.2 Presence of prosthetic heart valve; Z82.49 Family history of ischemic heart disease and other diseases of the circulatory system; Z79.82 Long term (current) use of aspirin
CPT/HCPCS: 80053; 84443; 85025

== ENCOUNTER 2022-07-09 08:04 | Day surgery (SDC) | payer MEDICARE, OTHER ==
[2022-07-09] MEDS ORDERED: SODIUM CHLORIDE 0.9% 1,000 ML IV ONE (08:22)
[2022-07-09 08:34] LABS: Glucose,Whole Blood 139 mg/dL (70-110)
[2022-07-09 08:43] LABS: Basophils # (A) 0.1 k/uL (0-0.2); Basophils % (A) 1 %; Eosinophils # (A) 0.1 k/uL (0-0.7); Eosinophils % (A) 3 %; HCT 37.6 % (39.0-53.0); HGB 12.5 gm/dL (13.0-17.5); Lymphocytes % (A) 22 %; MCH 29.5 pg (25.0-35.0); MCHC 33.3 g/dL (31.0-37.0); MCV 88.7 fL (80.0-100.0); Mean Platelet Volume 7.6; Monocytes # (A) 0.3 k/uL (0-1.0); Monocytes % (A) 7 %; Neutrophils # (A) 2.8 k/uL (1.3-7.7); Neutrophils % (A) 63 %; Platelet Count 170 k/uL (150-450); RBC 4.24 m/uL (4.30-5.90); RDW 14.5 % (11.5-15.5); WBC 4.4 k/uL (3.8-10.6)
[2022-07-09 08:54] LABS: ALT 26 U/L (4-49); AST 28 U/L (17-59); African American GFR (CKD) 67 (>60 ml/min/1.73 sqM); Albumin 4.2 g/dL (3.5-5.0); Alkaline Phosphatase 103 U/L (38-126); Anion Gap 11 mmol/L; Blood Urea Nitrogen 21 mg/dL (9-20); Calcium 8.5 mg/dL (8.4-10.2); Carbon Dioxide 24 mmol/L (22-30); Chloride 104 mmol/L (98-107); Glucose 149 mg/dL (74-99); Non-African American GFR(CKD) 58 (>60 ml/min/1.73 sqM); Potassium 4.4 mmol/L (3.5-5.1); Sodium 139 mmol/L (137-145); Total Bilirubin 0.5 mg/dL (0.2-1.3); Total Protein 7.1 g/dL (6.3-8.2)
[2022-07-09 09:58] LABS: T4, Free (Free Thyroxine) 1.05 ng/dL (0.78-2.19)
[2022-07-09] MEDS ORDERED: PROPOFOL 10 MG/ML 20 ML VIAL IV ONE (10:15)
[2022-07-09] MEDS ORDERED: PHENYLEPHRINE-0.9% NACL SYG 1,000 MCG/10 ML SYRINGE ONE (10:15)
[2022-07-09] MEDS ORDERED: GLYCOPYRROLATE 0.2 MG/ML 2 ML VIAL ONE (10:15)
[2022-07-09] MEDS ORDERED: ONDANSETRON 4 MG/2 ML VIAL ONE (10:15)
[2022-07-09] MEDS ORDERED: HEPARIN SODIUM,PORCINE 10,000 UNIT/ML 1 ML VIAL ONE (10:15)
[2022-07-09] MEDS ORDERED: ePHEDrine 50 MG/ML 1 ML VIAL ONE (10:15)
[2022-07-09] MEDS ORDERED: SUCCINYLCHOLINE CHLORIDE 200 MG/10 ML VIAL IV ONE (10:15)
[2022-07-09] MEDS ORDERED: ETOMIDATE 2 MG/ML 10 ML VIAL ONE (10:15)
[2022-07-09] MEDS ORDERED: ISOPROTERENOL 250 MCG/1.25 ML SYR IV ONE (10:15)
[2022-07-09] MEDS ORDERED: fentaNYL (PF) 50 MCG/ML 2 ML AMP ONE (10:15)
[2022-07-09] MEDS ORDERED: MIDAZOLAM 2 MG/2 ML VIAL ONE (10:15)
[2022-07-09] MEDS ORDERED: LIDOCAINE 2% INJ 20 MG/ML (2 ML VIAL) ONE (10:15)
[2022-07-09] MEDS ORDERED: DEXAMETHASONE SOD PHOSPHATE 4 MG/ML 1 ML VIAL ONE (10:15)
[2022-07-09] MEDS ORDERED: LIDOCAINE 1% INJ 10MG/ML (30 ML VIAL-PF) SQ ONE (11:15)
[2022-07-09] MEDS ORDERED: HEPARIN SOD,PORK IN 0.45% NACL 25,000 UNIT in 0.45% NACL 1 250ML.BAG IV ONE ×2 (13:03)
[2022-07-09] MEDS ORDERED: IOPAMIDOL-370 100ML BTL INJ ONE (13:04)
[2022-07-09] MEDS ORDERED: ACETAMINOPHEN IV (For NPO) 1,000 MG in EMPTY BAG 1 BAG IVPB ONE (13:29)
[2022-07-09] MEDS ORDERED: ACETAMINOPHEN TAB 325 MG TAB PO PRN (13:29)
[2022-07-09] MEDS ORDERED: LACTATED RINGERS 1,000 ML IV ONE (13:30)
[2022-07-09] MEDS ORDERED: COLCHICINE 0.6 MG EACH PO PRN (13:34)
--- NOTE | 2022-07-09 13:42 | P.HPCAR ---
History of Present Illness This is Dr. Mccloud dictating an H/P on this patient The patient was interviewed and examined IMPRESSION / ASSESSMENT: Severe valvular disease with adenopathy Aortic valve replacement Nonischemic cardio myopathy Chronic kidney disease Hypertension Type 2 diabetes Congestive heart failure with moderate central mitral regurgitation Left radical ejection fraction 20% Persistent atrial fibrillation currently on oral amiodarone Left bundle branch block PLAN: Proceed with A. fib ablation with pulmonary vein isolation linear ablation of the left atrium Maximize carvedilol Stop metoprolol Continue ENTRESTO Reduce amiodarone to 100 mg by mouth daily Continue anticoagulation with ELIQUIS HPI Patient has a history of congestive heart failure with central moderate mitral regurgitation if he also has a left bundle branch block on twelve-lead EKG He has no orthopnea PND this morning No lower extremity edema Thick neck but no obvious JVD No chest discomfort at this time He remains on oral amiodarone and beta blockers and ENTRESTO No syncope ROS: No fever chills or rigors, no cough, phlegm or expectoration, no nausea, vomiting or diarrhea, no hematuria, dysuria, no musculoskeletal complaints, no strokes or seizures, no skin lesions. EXAMINATION: Afebrile 98.8F, blood pressure 160/90 mmHg, normal respirations Breath sounds are clear no rhonchi no crackles Heart sounds S1 and S2 are normal and regular soft systolic murmur Central obesity No lower extremity edema REVIEW OF LABS, ECG & MEDICAL DATA hemoglobin 12.5 Creatinine 1.3 BUN 12 Sodium 139 potassium 4.4 Liver function tests are normal TSH 4.8 Physical Exam Vitals: Vital Signs Temp Pulse Resp BP Pulse Ox 07/09/22 08:41 98.8 F 60 16 160/90 100 Intake and Output 07/08/22 07/09/22 07/09/22 22:59 06:59 14:59 Intake Total 180 Balance 180 Intake: IV 180 Other: Weight 139.6 kg Past Medical History Past Medical History: Coronary Artery Disease (CAD), Heart Failure, Diabetes Mellitus, Hypertension, Renal Disease, Sleep Apnea/CPAP/BIPAP Additional Past Medical History / Comment(s): Aortic stenosis, NIDDM type II, LINDA with Cpap use, bilateral tinnitis, DDD, chronic low back pain, bronchitis, recent gout flare up, see Dr. Mccloud H & P History of Any Multi-Drug Resistant Organisms: None Reported Past Surgical History: Cardiac Valve Replacement, Cholecystectomy, Heart Catheterization, Orthopedic Surgery Additional Past Surgical History / Comment(s): carpal tunnel dave Past Anesthesia/Blood Transfusion Reactions: No Reported Reaction Smoking Status: Former smoker - Past Family History Father Family Medical History: Cancer, Myocardial Infarction ([place]) Mother Family Medical History: Cancer Additional Family Medical History / Comment(s): Mother at 88yrs and pt states it was felt she might have had some form of cancer later in life. Physical Examination Vital Signs Temp Pulse Resp BP Pulse Ox 07/09/22 08:41 98.8 F 60 16 160/90 100 Intake and Output 07/08/22 07/09/22 07/09/22 22:59 06:59 14:59 Intake Total 180 Balance 180 Intake: IV 180 Other: Weight 139.6 kg Results 07/09/22 08:39 07/09/22 08:39 Cardiac Enzymes 07/09/22 Range/Units 08:39 AST 28 (17-59) U/L CBC 07/09/22 Range/Units 08:39 WBC 4.4 (3.8-10.6) k/uL RBC 4.24 L (4.30-5.90) m/uL Hgb 12.5 L (13.0-17.5) gm/dL Hct 37.6 L (39.0-53.0) % Plt Count 170 (150-450) k/uL Comprehensive Metabolic Panel 07/09/22 Range/Units 08:39 Sodium 139 (137-145) mmol/L Potassium 4.4 (3.5-5.1) mmol/L Chloride 104 (98-107) mmol/L Carbon Dioxide 24 (22-30) mmol/L BUN 21 H (9-20) mg/dL Creatinine 1.29 H (0.66-1.25) mg/dL Glucose 149 H (74-99) mg/dL Calcium 8.5 (8.4-10.2) mg/dL AST 28 (17-59) U/L ALT 26 (4-49) U/L Alkaline Phosphatase 103 (38-126) U/L Total Protein 7.1 (6.3-8.2) g/dL Albumin 4.2 (3.5-5.0) g/dL Current Medications Generic Name Dose Route Start Last Admin Trade Name Freq PRN Reason Stop Dose Admin Acetaminophen 650 mg 07/09/22 13:29 Acetaminophen Tab 325 Mg Tab PO 08/08/22 13:30 Q6HR PRN Mild Pain (Scale 1 to 3) Amiodarone HCl 200 mg 07/10/22 09:00 Amiodarone 200 Mg Tab PO 08/09/22 09:01 DAILY [facility] Apixaban 5 mg 07/09/22 21:00 Apixaban 5 Mg Tab PO 08/08/22 21:01 BID [facility] Protocol Aspirin 81 mg 07/10/22 09:00 Aspirin 81 Mg PO 08/09/22 09:01 DAILY [facility] Atorvastatin Calcium 10 mg 07/09/22 21:00 Atorvastatin 20 Mg Tab PO 08/08/22 21:01 [facility] Carvedilol 6.25 mg 07/09/22 21:00 Carvedilol 6.25 Mg Tab PO 08/08/22 21:01 BID [facility] Colchicine 0.6 mg 07/09/22 13:34 Colchicine 0.6 Mg Each PO 08/08/22 13:35 DAILY PRN GOUT Sodium Chloride 1,000 mls @ 20 mls/hr 07/09/22 05:59 Saline 0.9% IV 08/08/22 06:00 .Q24H JOHN Acetaminophen 1,000 mg/ IV 100 mls @ 400 mls/hr 07/09/22 13:29 Solution IVPB 07/09/22 13:43 ONCE ONE Non-Formulary Medication 2 mg 07/09/22 21:00 Bumetanide [Bumex] PO 08/08/22 21:01 BID [facility] Non-Formulary Medication 10 mg 07/10/22 09:00 Empagliflozin [Jardiance] PO 08/09/22 09:01 DAILY [facility] Non-Formulary Medication 20 mg 07/10/22 09:00 Omeprazole PO 08/09/22 09:01 DAILY [facility] Non-Formulary Medication 30 mg 07/10/22 09:00 Paroxetine Hcl [Paroxetine Hcl] PO 08/09/22 09:01 DAILY [facility] Sacubitril/Valsartan 1 each 07/09/22 21:00 Sacubitril/Valsartan 24 Mg-26 Mg Tablet PO 08/08/22 21:01 BID [facility] Sodium Chloride 12 ml 07/09/22 13:29 Sodium Chloride 0.9% Flush 10 Ml Syringe IV 08/08/22 13:30 Q12HR PRN Line Flush Intake and Output 07/08/22 07/09/22 07/09/22 22:59 06:59 14:59 Intake Total 180 Balance 180 Intake: IV 180 Other: Weight 139.6 kg Patient Weight 07/10/22 06:59 Weight 139.6 kg 07/09/22 08:39 07/09/22 08:39
[2022-07-09 13:58] LABS: Glucose,Whole Blood 173 mg/dL (70-110)
--- NOTE | 2022-07-09 13:58 | P.EPPROC ---
- EP Procedure Note Electrophysiology Procedure Note: PROCEDURE A. fib ablation/PVI/linear ablation left atrial roof/Left atrial septal ablation DIAGNOSIS Persistent Atrial fibrillation, symptomatic, Cardiomyopathy with congestive heart failure Valvular heart disease, aortic valve replacement RESULT No left atrial appendage mass seen on intracardiac echo Successful A. fib ablation/pulmonary vein isolation of all veins using cryo- ablation Complete entrance block in all 4 veins confirmed Linear ablation left atrial roof Left atrial septal ablation No evidence for phrenic nerve injury Esophageal deflection YES PROCEDURE DETAILS Patient was brought to the EP lab in a fasting state after obtaining written informed consent. Procedure performed under general anesthesia Esophagus was intubated. Esophageal temperature monitoring with circa catheter. Esophageal deflection with an endoscope to avoid hypothermia of the esophagus. After initial muscle relaxant use, muscle relaxants were not given thereafter in order to assess phrenic nerve during procedure. Patient prepped and draped as per protocol Cryo ablation-set up with standard preparation of the cryoablation tools done. Femoral Venous access obtained on the right and left groins and sheaths placed Diagnostic catheters for the high right atrium, phrenic nerve stimulation and pacing, His bundle, coronary sinus placed Intracardiac echo catheter placed. Long sheath placed in the right atrium Left and right transseptal catheterization performed under intracardiac echo guidance. Intravenous heparin with aCT above 300 Later, catheter positioning and balloon positioning in the left atrium and pulmonary veins, under intracardiac echo guidance Diagnostic EP study with coronary sinus pacing and recording Baseline measurements: Sinus cycle length 1007, CO 189, QRS 196, left bundle branch block pattern and QT interval 476 ms AH 97 and HV 65 ms Sinus recovery times at 605 100 ms were 1425 and 1119 seconds AV node Wenckebach block 370 ms Height is Isuprel infused, no atrial fibrillation induced Transseptal catheterization performed RA pressure 23/15/20 LA pressure 33/14/22 Transseptal catheterization performed with standard sheath. The cryoablation sheath was then placed with an over the wire exchange without any acute complications. The cryoablation balloon was placed in the office of each pulmonary vein and all 4 pulmonary veins were isolated. IV dye was injected to confirm occlusion. Goal: achieve complete occlusion of the pulmonary vein, achieve -30 degrees C at 30 seconds and achieve -40 degrees C at 60 seconds and a time to effect of less than 60 seconds. If not, the balloon was repositioned to obtain this result After completion of Cryoblation with durations from 180-240 seconds, entrance block was confirmed with the Attain circular catheter in a roving fashion around the antrum of the pulmonary veins Phrenic nerve pacing was performed from the SVC, right innominate vein area and diaphragm voltage was monitored. Diaphragmatic contractions were also monitored manually for strength of contraction. At the end of the procedure the Achieve catheter was once again used to check for entrance block Phrenic nerve stimulation was performed to confirm diaphragmatic stimulation the end of the procedure Cine fluoroscopy was performed at the very end of the procedure to confirm movement of both diaphragms with inspiration and expiration At the end of the procedure the patient was extubated Venous sheaths were removed and hemostasis assured with a closure device PROCEDURES PERFORMED Diagnostic EP study CS pacing and recording Left and right transseptal catheterization Catheter the mapping of the tachycardia Intracardiac echocardiography Pulmonary vein isolation with transseptal and comprehensive EPS, [id number] Drug infusion, +[id number] Left atrial roof line, +[id number] Linear ablation, left atrium septum, +[id number]
[2022-07-09 14:19] LABS: Glucose,Whole Blood 173 mg/dL (70-110)
[2022-07-09] MEDS: SODIUM CHLORIDE 0.9% 1,000 ML IV SCH (15:02)
[2022-07-09] MEDS: carvediloL 6.25 MG TAB PO SCH (17:50)
[2022-07-09] MEDS: SACUBITRIL/VALSARTAN 24 MG-26 MG TABLET PO SCH (20:34)
[2022-07-09] MEDS: APIXABAN 5 MG TAB PO SCH (20:34)
[2022-07-09] MEDS: BUMETANIDE 1 MG TAB PO SCH (20:34)
[2022-07-09] MEDS ORDERED: ATORVASTATIN 10 MG TAB PO SCH (21:00)
[2022-07-10] MEDS: SODIUM CHLORIDE 0.9% 1,000 ML IV SCH (06:10)
[2022-07-10] MEDS ORDERED: PANTOPRAZOLE 40 MG TABLET PO SCH (07:30)
--- NOTE | 2022-07-10 08:02 | P.DS ---
Providers Attending physician: Sherwin Mccloud Primary care physician: [facility] Course: Patient resting comfortably in bed. 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 Franks in 1 week Reassessment of LV function in about 2-3 months If LV function remains depressed then proceed with a biventricular ICD for management of heart failure and primary prevention of SCD Patient Condition at Discharge: Stable Plan - Discharge Summary Discharge Rx Participant: No New Discharge Prescriptions: New Amiodarone [Cordarone] 100 mg PO DAILY #90 tab carvediloL 12.5 mg PO BID #180 tablet Discontinued Metoprolol Succinate [Toprol XL] 100 mg PO DAILY carvediloL [Carvedilol] 6.25 mg PO BID Amiodarone [Cordarone] 200 mg PO BID No Action PARoxetine HCL 30 mg PO DAILY Potassium Chloride [Klor-Con 20] 20 meq PO DAILY Aspirin EC [Ecotrin Low Dose] 81 mg PO DAILY #30 tablet. Bumetanide [BUMEX] 2 mg PO BID allopurinoL [Zyloprim] 200 mg PO DAILY PRN PRN Reason: GOUT Atorvastatin Calcium [Lipitor] 10 mg PO HS Ubidecarenone [Co Q-10] 100 mg PO DAILY Apixaban [Eliquis] 5 mg PO BID Colchicine [Colcrys] 0.6 mg PO DAILY PRN PRN Reason: GOUT Omeprazole [PriLOSEC] 20 mg PO DAILY Cyanocobalamin [Vitamin B-12] 500 mcg PO DAILY Empagliflozin [Jardiance] 10 mg PO DAILY Sacubitril/Valsartan [Entresto 24 mg-26 mg Tablet] 1 tab PO BID Discharge Medication List PARoxetine HCL 30 mg PO DAILY 08/20/16 [History] Potassium Chloride [Klor-Con 20] 20 meq PO DAILY 05/06/18 [History] Aspirin EC [Ecotrin Low Dose] 81 mg PO DAILY #30 tablet. 05/10/18 [Rx] Bumetanide [BUMEX] 2 mg PO BID 09/18/19 [History] Apixaban [Eliquis] 5 mg PO BID 02/15/22 [History] Atorvastatin Calcium [Lipitor] 10 mg PO HS 02/15/22 [History] Colchicine [Colcrys] 0.6 mg PO DAILY PRN 02/15/22 [History] Cyanocobalamin [Vitamin B-12] 500 mcg PO DAILY 02/15/22 [History] Empagliflozin [Jardiance] 10 mg PO DAILY 02/15/22 [History] Omeprazole [PriLOSEC] 20 mg PO DAILY 02/15/22 [History] Sacubitril/Valsartan [Entresto 24 mg-26 mg Tablet] 1 tab PO BID 02/15/22 [History] Ubidecarenone [Co Q-10] 100 mg PO DAILY 02/15/22 [History] allopurinoL [Zyloprim] 200 mg PO DAILY PRN 02/15/22 [History] Amiodarone [Cordarone] 100 mg PO DAILY #90 tab 07/09/22 [Rx] carvediloL 12.5 mg PO BID #180 tablet 07/09/22 [Rx] Follow up Appointment(s)/Referral(s): Ede Franks DO [STAFF PHYSICIAN] - 1 Week Activity/Diet/Wound Care/Special Instructions: Post EP study - Ablation instructions 1. Keep access sites dry for 2 days. 2. No heavy lifting or straining for 2 days. 3. Avoid bending the hips repeatedly for 2 days. 4. You may go up and down stairs slowly Call if the following is noted 1. Bleeding, increasing swelling or pain at the access sites. 2. Increasing chest discomfort, especially upon taking a deep breath. 3. Increasing shortness of breath, at rest or with exertion. 4. Undue cough / phlegm 5. Difficulty or pain while swallowing. 6. Pain or change in color in the extremities. 7. Fever, chills, rigors. 8. Increasing headache or neurologic symptoms. 9. Dizziness, fainting, palpitations Stop metoprolol succinate Increase carvedilol to 12.5 mg twice daily Reduce amiodarone to 100 mg by mouth daily Continue ELIQUIS Continue all other medications Discharge Disposition: HOME SELF-CARE
[2022-07-10 08:45] VITALS: BP 128/68; PULSE 70; RESP 18; TEMP 97.7
[2022-07-10] MEDS: APIXABAN 5 MG TAB PO SCH (08:57)
[2022-07-10] MEDS: carvediloL 6.25 MG TAB PO SCH (08:58)
[2022-07-10] MEDS: SACUBITRIL/VALSARTAN 24 MG-26 MG TABLET PO SCH (08:58)
[2022-07-10] MEDS: BUMETANIDE 1 MG TAB PO SCH (08:58)
[2022-07-10] MEDS ORDERED: AMIODARONE 200 MG TAB PO SCH (09:00)
[2022-07-10] MEDS ORDERED: PARoxetine 10 MG TAB PO SCH (09:00)
[2022-07-10] MEDS ORDERED: DAPAGLIFLOZIN PROPANEDIOL 5 MG TABLET PO SCH (09:00)
[2022-07-10] MEDS ORDERED: ASPIRIN 81 MG PO SCH (09:00)
== END 2022-07-10 10:11 | disposition home or self-care (01) ==
LOC: CATHEP 08:04 → 6NMEDSUR 13:20 → CATHEP 07-10 10:11
PROVIDERS: ATTEND Internal Medicine Clinical Cardiac Electrophysiology
DX: I48.19 Other persistent atrial fibrillation (principal); I42.9 Cardiomyopathy, unspecified; I11.0 Hypertensive heart disease with heart failure; I50.9 Heart failure, unspecified; I38 Endocarditis, valve unspecified; G47.33 Obstructive sleep apnea (adult) (pediatric); I25.10 Atherosclerotic heart disease of native coronary artery without angina pectoris; E11.9 Type 2 diabetes mellitus without complications; M50.30 Other cervical disc degeneration, unspecified cervical region; M10.9 Gout, unspecified; J40 Bronchitis, not specified as acute or chronic; Z95.4 Presence of other heart-valve replacement; Z99.89 Dependence on other enabling machines and devices; Z90.49 Acquired absence of other specified parts of digestive tract; Z95.5 Presence of coronary angioplasty implant and graft; Z98.890 Other specified postprocedural states; Z87.891 Personal history of nicotine dependence; Z80.9 Family history of malignant neoplasm, unspecified; Z79.82 Long term (current) use of aspirin; Z79.899 Other long term (current) drug therapy; Z79.1 Long term (current) use of non-steroidal anti-inflammatories (NSAID)
CPT/HCPCS: 93623; 93656; 84439; 80053; 84443; 85025; C1759; C1894 ×2; C1769 ×4; C1760; C1730 ×2; C1893; C1733; C1766; J2250; J0330; J1644 ×2; J1100; J0690; J2405; J2001 ×2; J3010; J2370; J2704; Q9967

== ENCOUNTER → 2023-02-21 | Outpatient (CLI) | payer MEDICARE, OTHER ==
[2023-02-21 15:32] LABS: African American GFR (CKD) 60.3 (60.0-200.0); Anion Gap 11.6 mmol/L (10.00-18.00); BUN/Creat Ratio 21.79 Ratio (12.00-20.00); Blood Urea Nitrogen 30.5 mg/dL (9.0-27.0); Calcium 9.3 mg/dL (8.7-10.3); Carbon Dioxide 27.6 mmol/L (20.0-27.5); Potassium 5.1 mmol/L (3.5-5.5)
== END | disposition home or self-care (01) ==
LOC: LABWHC1 09:28
PROVIDERS: ATTEND Internal Medicine
DX: I50.22 Chronic systolic (congestive) heart failure (principal)
CPT/HCPCS: 36415; 80048; 83880

== ENCOUNTER 2023-07-10 11:58 | Day surgery (SDC) | payer MEDICARE, OTHER ==
[2023-07-03 15:51] VITALS: BMI 43.0
[~2023-07-10 11:58] MED LIST changes: -LACTATED RINGERS 1,000 ML IV SCH; -SODIUM CHLORIDE 0.9% 1,000 ML IV SCH; +ceFAZolin 1 GM in SODIUM CHLORIDE 0.9% IRRIG BTL 250 ML IRRIGATION PRN
[2023-07-10 12:59] LABS: Glucose,Whole Blood 154 mg/dL (70-110)
[2023-07-10] MEDS: SODIUM CHLORIDE 0.9% 1,000 ML IV SCH (13:00)
[2023-07-10 13:18] LABS: ALT 23 U/L (4-49); AST 23 U/L (17-59); African American GFR (CKD) 74 (>60 ml/min/1.73 sqM); Albumin 4.4 g/dL (3.5-5.0); Alkaline Phosphatase 78 U/L (38-126); Anion Gap 12 mmol/L; Blood Urea Nitrogen 25 mg/dL (9-20); Calcium 9.3 mg/dL (8.4-10.2); Carbon Dioxide 22 mmol/L (22-30); Chloride 107 mmol/L (98-107); Glucose 163 mg/dL (74-99); Non-African American GFR(CKD) 64 (>60 ml/min/1.73 sqM); Potassium 4.4 mmol/L (3.5-5.1); Sodium 141 mmol/L (137-145); Total Protein 7.5 g/dL (6.3-8.2)
[2023-07-10] MEDS ORDERED: LIDOCAINE 1% INJ 10MG/ML (20 ML MDV) ONE ×3 (14:50→15:11)
[2023-07-10] MEDS ORDERED: diphenhydrAMINE 50 MG/ML 1 ML VIAL ONE (14:50)
[2023-07-10] MEDS ORDERED: fentaNYL (PF) 50 MCG/ML 2 ML AMP ONE (14:50)
[2023-07-10] MEDS ORDERED: MIDAZOLAM 2 MG/2 ML VIAL ONE (14:50)
[2023-07-10] MEDS ORDERED: IOPAMIDOL-370 100ML BTL INJ ONE (15:20)
[2023-07-10] MEDS ORDERED: LIDOCAINE 1% INJ 10MG/ML (30 ML VIAL-PF) SQ ONE (15:39)
[2023-07-10] MEDS ORDERED: COLCHICINE 0.6 MG EACH PO PRN (18:22)
[2023-07-10] MEDS ORDERED: ONDANSETRON ODT 4 MG TAB PO PRN (18:22)
[2023-07-10] MEDS ORDERED: allopurinoL 100 MG TAB PO PRN (18:22)
--- NOTE | 2023-07-10 18:35 | P.EPPROC ---
- EP Procedure Note Electrophysiology Procedure Note: Diagnosis Severe nonischemic cardio myopathy that has not responded to A. fib ablation and maintenance sinus rhythm Aortic valve replacement Left bundle branch block with a QRS width of greater than 190 ms CHF class II despite guideline recommended to treatment for greater than 9 months Chronic systolic heart failure Procedure Biventricular ICD implantation with conduction system pacing (left bundle pacing) Left upper extremity venogram Details Patient was brought to the EP lab in a fasting state. Written informed consent was obtained prior to the procedure. Left upper extremity venogram performed. Patent left subclavian and axillary venous system. 15 mL IV dye injected in the left arm Conscious sedation provided by SENIOR ECOLOGIST. IV antibiotics administered. Local anesthesia administered. A 4 cm incision made in the pectoral area. Subfascial pocket made. Venous accesses obtained Venous sheaths placed. Leads placed in the right heart. A Metronic single coil ICD was placed in the low RV septum and screwed in. This was a model number 03/14/1929 5M, 62 cm in length R waves 12 mV, pacing impedance 713 ohms and high-voltage impedance 69 ohms Pacing threshold 0.5 V at 0.4 ms Atrial lead, a 52 cm active fix lead screwed in the right atrial appendage P waves 1-1.5 mV, pacing impedance 589 ohms and pacing threshold 0.5 V at 0.4 ms A deflected sheath was prepped. A coronary sinus decapolar catheter was placed within this sheath. The catheter along with the sheath was then passed into the right heart, the catheter was prolapsed across the tricuspid valve, into the right ventricle and then further into the right ventricular outflow tract across the pulmonic valve into the pulmonary artery. This sheath was slid over this decapolar catheter into the RVOT. Thereafter the catheter last sheath assembly was withdrawn from the RVOT along the septum to the mid septal area. The sheath was appropriately to to map the right ventricular aspect of the septum. The decapolar catheter was withdrawn, the sheath flushed again and the screw-in pacing lead placed within the sheath. Further detailed unipolar pace-mapping of the septum was performed and once the appropriate based morphology was obtained on lead V1, the lead was screwed into the septum. The lead was screwed in 4-5 returns at a time while monitoring the current of injury, the pacing impedance changes and the paced QRS morphology. The stimulus to peak of V6 QRS was measured at each step. Once a QR or rSR pattern of paced QRS in lead V1 was obtained, a left bundle signal was sought. Impedance was measured and thresholds were measured. An impedance drop of 100-200 ohms but above 550 ohms was targeted along with an unchanged vector of the current of injury signal. The final positioning was based on the QRS morphology in lead V1 and a short stimulus to peak of the V6 QRS of less than 90 ms. The sheath was withdrawn, stability of the pacing lead deep in the septum was confirmed on RENDON and MERCED views and the sheath was slipped and an adequate heel was provided for the lead. Unipolar and bipolar electrogram morphology obtained This was a difficult left bundle lead position on account of the size of the right ventricle and the right atrium The His bundle sheath was slightly short due to the size of the chambers Multiple attempts were made to map the left bundle. Successful implantation of a left bundle pacing lead. 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 Antibiotic pouch placed Wound closed in 3 layers and dressed per protocol DDDR 60-130, short AV delay of 120 ms VT zone 176 beats a minute, we have zone 214 beats a minute Appropriate antitachycardia pacing cardioversion and defibrillationm
[2023-07-10] MEDS ORDERED: ACETAMINOPHEN TAB 325 MG TAB PO PRN (18:36)
[2023-07-10] MEDS ORDERED: ACETAMINOPHEN IV (For NPO) 1,000 MG in EMPTY BAG 1 BAG IVPB ONE (18:36)
[2023-07-10] MEDS: APIXABAN 5 MG TAB PO SCH (20:20)
[2023-07-10] MEDS: BUMETANIDE 1 MG TAB PO SCH (20:20)
[2023-07-10] MEDS: SACUBITRIL/VALSARTAN 24 MG-26 MG TABLET PO SCH (20:20)
[2023-07-10] MEDS: carvediloL 12.5 MG TAB PO SCH (20:20)
[2023-07-10] MEDS ORDERED: ATORVASTATIN 10 MG TAB PO SCH (21:00)
[2023-07-11] MEDS: SODIUM CHLORIDE 0.9% 1,000 ML IV SCH (01:50)
[2023-07-11] MEDS: carvediloL 12.5 MG TAB PO SCH (06:39)
[2023-07-11 06:49] VITALS: TEMP 98.1
[2023-07-11] MEDS ORDERED: PANTOPRAZOLE 40 MG TABLET PO SCH (07:30)
--- NOTE | 2023-07-11 08:21 | XR ---
EXAMINATION TYPE: XR chest 2V DATE OF EXAM: 07/11/2023 COMPARISON: 02/18/22 HISTORY: Shortness of breath TECHNIQUE: Frontal and lateral views of the chest are obtained. FINDINGS: Scattered senescent parenchymal changes noted. Hyperinflation compatible with COPD. No evidence for infiltrate. No evidence for atelectasis. Heart size is stable. Mediastinal structures are stable and grossly unremarkable. No evidence for hilar prominence. Degenerative changes dorsal spine. IMPRESSION: 1. No evidence for acute pulmonary disease.
[2023-07-11] MEDS: APIXABAN 5 MG TAB PO SCH (08:28)
[2023-07-11] MEDS: BUMETANIDE 1 MG TAB PO SCH (08:29)
[2023-07-11] MEDS: SACUBITRIL/VALSARTAN 24 MG-26 MG TABLET PO SCH (08:29)
[2023-07-11] MEDS ORDERED: AMIODARONE 100 MG TAB PO SCH (09:00)
[2023-07-11] MEDS ORDERED: PARoxetine 10 MG TAB PO SCH (09:00)
[2023-07-11] MEDS ORDERED: SPIRONOLACTONE 25 MG TAB PO SCH (09:00)
[2023-07-11] MEDS ORDERED: DAPAGLIFLOZIN PROPANEDIOL 5 MG TABLET PO SCH (09:00)
[2023-07-11] MEDS ORDERED: ASPIRIN 81 MG PO SCH (09:00)
[2023-07-11 10:58] VITALS: BP 153/83; PULSE 88; RESP 16
[2023-07-13] MEDS ORDERED: metFORMIN 500 MG TAB PO SCH (09:00)
== END 2023-07-11 13:39 | disposition home or self-care (01) ==
LOC: CATHEP 11:58 → 6NMEDSUR 18:02 → CATHEP 07-11 13:12
PROVIDERS: ATTEND Internal Medicine Clinical Cardiac Electrophysiology
DX: I44.7 Left bundle-branch block, unspecified (principal); I11.0 Hypertensive heart disease with heart failure; I50.22 Chronic systolic (congestive) heart failure; E11.9 Type 2 diabetes mellitus without complications; I42.8 Other cardiomyopathies; Z79.84 Long term (current) use of oral hypoglycemic drugs; Z79.82 Long term (current) use of aspirin; Z79.01 Long term (current) use of anticoagulants; Z79.899 Other long term (current) drug therapy; Z95.2 Presence of prosthetic heart valve
CPT/HCPCS: 33225; 33249; 80053; 84443; 71046; C1769 ×2; C1892 ×2; C1730; C1887; C1898; C1895; C1882; J2250; J1200; J0690 ×2; J2001; J3010; Q9967

== ENCOUNTER 2023-11-19 14:13 | Emergency (ER) | payer MEDICARE, OTHER ==
[2023-11-19 14:48] VITALS: RESP 18
[2023-11-19 15:43] LABS: Basophils % (A) 1 %; Eosinophils # (A) 0.2 k/uL (0-0.7); Eosinophils % (A) 2 %; HCT 43.2 % (39.0-53.0); HGB 14.5 gm/dL (13.0-17.5); Lymphocytes # (A) 1.8 k/uL (1.0-4.8); Lymphocytes % (A) 24 %; MCH 30.9 pg (25.0-35.0); MCHC 33.6 g/dL (31.0-37.0); Monocytes # (A) 0.3 k/uL (0-1.0); Monocytes % (A) 5 %; Neutrophils % (A) 68 %; Platelet Count 184 k/uL (150-450); RBC 4.69 m/uL (4.30-5.90); RDW 13.5 % (11.5-15.5); WBC 7.4 k/uL (3.8-10.6)
[2023-11-19 15:55] LABS: ALT 20 U/L (4-49); AST 23 U/L (17-59); African American GFR (CKD) 59 (>60 ml/min/1.73 sqM); Albumin 4.2 g/dL (3.5-5.0); Alkaline Phosphatase 69 U/L (38-126); Anion Gap 7 mmol/L; Blood Urea Nitrogen 35 mg/dL (9-20); Calcium 9.4 mg/dL (8.4-10.2); Carbon Dioxide 25 mmol/L (22-30); Chloride 103 mmol/L (98-107); Glucose 226 mg/dL (74-99); Magnesium 2.3 mg/dL (1.6-2.3); Non-African American GFR(CKD) 51 (>60 ml/min/1.73 sqM); Sodium 135 mmol/L (137-145); Total Bilirubin 0.7 mg/dL (0.2-1.3)
[2023-11-19 16:02] LABS: NT-Pro-B-Type Natriuretic Pept 438 pg/mL
[2023-11-19 16:06] LABS: Partial Thromboplastin Time 24.5 sec (22.0-30.0); Prothrombin Time 10.8 sec (10.0-12.5)
--- NOTE | 2023-11-19 16:24 | XR ---
EXAMINATION TYPE: XR chest 2V DATE OF EXAM: 11/19/2023 COMPARISON: 07/11/2023. HISTORY: Lead placement check. TECHNIQUE: Frontal and lateral views of the chest are obtained. FINDINGS: There is no focal consolidative change. The cardiac silhouette is moderately enlarged and the pulmonary vessels are within normal limits. Left-sided AICD generator has leads overlying the rig ht atrium and right ventricle as well as within the region of the coronary sinus that appear unchange d. There are midline sternotomy wires. IMPRESSION: No acute cardiopulmonary process. No significant change in the appearance of the leads.
--- NOTE | 2023-11-19 17:34 | ED ---
Chest Pain HPI - General Chief Complaint: Chest Pain Stated Complaint: Chest Pain Time Seen by Provider: 11/19/23 14:55 Source: patient Mode of arrival: ambulatory Limitations: no limitations - History of Present Illness Initial Comments: 68-year-old male presents emergency department with chest wall pain. States that over the past week he has had worsening pain around the site of his place maker. He describes it as a burning, itching sensation. Denies any radiation of the pain. No shortness of breath. He has not attempted to take anything for pain control. He went into the cardiology office and they told him to come to the ER to be seen. Pacemaker was placed in July. He denies any trauma to the site. No redness. No fevers. No other alleviating, precipitating modifying factors - Related Data Home Medications Medication Instructions Recorded Confirmed PARoxetine HCL 30 mg PO DAILY 08/20/16 11/19/23 Apixaban [Eliquis] 5 mg PO BID 02/15/22 11/19/23 metFORMIN HCL [Glucophage] 500 mg PO DAILY 07/10/23 11/19/23 Atorvastatin [Lipitor] 10 mg PO HS 11/19/23 11/19/23 Bumetanide [BUMEX] 2 mg PO DAILY 11/19/23 11/19/23 Cholecalciferol [Vitamin D3 (25 25 mcg PO DAILY 11/19/23 11/19/23 Mcg = 1000 Iu)] Cyanocobalamin (Vitamin B-12) 3,000 mcg PO DAILY 11/19/23 11/19/23 [Vitamin B-12] Empagliflozin [Jardiance] 25 mg PO DAILY 11/19/23 11/19/23 [place]-3/Dha/Epa/Fish Oil [[place]-3 1 cap PO DAILY 11/19/23 11/19/23 Fish Oil 1,000 mg Sfgl] Sacubitril/Valsartan [Entresto 49 1 tab PO BID 11/19/23 11/19/23 mg-51 mg Tablet] Spironolactone 50 mg PO BID 11/19/23 11/19/23 Ubidecarenone [Coenzyme Q10] 200 mg PO DAILY 11/19/23 11/19/23 Previous Rx's Medication Instructions Recorded Aspirin EC [Ecotrin Low Dose] 81 mg PO DAILY #30 tablet. 05/10/18 carvediloL 25 mg PO BID #180 tablet 07/11/23 Allergies Allergy/AdvReac Type Severity Reaction Status Date / Time No Known Allergies Allergy Verified 11/19/23 16:12 Review of Systems ROS Statement: Those systems with pertinent positive or pertinent negative responses have been documented in the HPI. ROS Other: All systems not noted in ROS Statement are negative. Past Medical History Past Medical History: Coronary Artery Disease (CAD), Heart Failure, Diabetes Mellitus, GERD/Reflux, Hypertension, Sleep Apnea/CPAP/BIPAP Additional Past Medical History / Comment(s): Aortic stenosis, NIDDM type II, LINDA with Cpap use, bilateral tinnitis, DDD, chronic low back pain, bronchitis. GOUT, History of Any Multi-Drug Resistant Organisms: None Reported Past Surgical History: Cholecystectomy, Coronary Bypass/CABG, Heart Catheterization, Orthopedic Surgery Additional Past Surgical History / Comment(s): carpal tunnel dave, COLONOSCOPY, Past Anesthesia/Blood Transfusion Reactions: No Reported Reaction Past Psychological History: No Psychological Hx Reported Smoking Status: Current some day smoker Past Alcohol Use History: Occasional Past Drug Use History: None Reported - Past Family History Father Family Medical History: Cancer, Myocardial Infarction (CO) Mother Family Medical History: Cancer Additional Family Medical History / Comment(s): Mother at 88yrs and pt states it was felt she might have had some form of cancer later in life. General Exam Limitations: no limitations General appearance: alert, in no apparent distress Head exam: Present: atraumatic, normocephalic, normal inspection Eye exam: Present: normal appearance, PERRL, EOMI. Absent: scleral icterus, conjunctival injection, periorbital swelling ENT exam: Present: normal exam, mucous membranes moist Neck exam: Present: normal inspection. Absent: tenderness, meningismus, lymphadenopathy Respiratory exam: Present: normal lung sounds bilaterally, chest wall tenderness (Over the pacemaker site however there is no identifiable redness or swelling). Absent: respiratory distress, wheezes, rales, rhonchi, stridor Cardiovascular Exam: Present: regular rate, normal rhythm, normal heart sounds. Absent: systolic murmur, diastolic murmur, rubs, gallop, clicks GI/Abdominal exam: Present: soft, normal bowel sounds. Absent: distended, tenderness, guarding, rebound, rigid Extremities exam: Present: normal inspection, full ROM, normal capillary refill. Absent: tenderness, pedal edema, joint swelling, calf tenderness Back exam: Present: normal inspection Neurological exam: Present: alert, oriented X3, CN II-XII intact Psychiatric exam: Present: normal affect, normal mood Skin exam: Present: warm, dry, intact, normal color. Absent: rash Course Vital Signs 11/19/23 11/19/23 11/19/23 14:20 16:22 17:37 Temperature 97.6 F 98.3 F 98 F Pulse Rate 79 77 63 Respiratory 18 18 Rate Blood Pressure 143/77 134/71 116/72 O2 Sat by Pulse 100 100 97 Oximetry Chest Pain MDM - MDM Was pt. sent in by a medical professional or institution (, PA, CORRECTIONAL OFFICER, urgent care, hospital, or [facility]...) When possible be specific @ -Patient was sent over from the cardiology office Did you speak to anyone other than the patient for history (EMS, parent, family, police, friend...)? What history was obtained from this source @ -No Did you review nursing and triage notes (agree or disagree)? Why? @ -I reviewed and agree with nursing and triage notes Were old charts reviewed (outside hosp., previous admission, EMS record, old EKG, old radiological studies, urgent care reports/EKG's, [facility] records)? Report findings @ -I reviewed the procedure note from July when the place maker was placed Differential Diagnosis (chest pain, altered mental status, abdominal pain women, abdominal pain men, vaginal bleeding, weakness, fever, dyspnea, syncope, headache, dizziness, GI bleed, back pain, seizure, CVA, palpatations, mental health, musculoskeletal)? @ -Differential Chest Pain: Stable Angina, Unstable Angina, STEMI, NSTEMI Aortic Dissection, Pneumothorax, Musculoskeletal, Esophageal Spasm GERD, Cholecystitis, Pancreatitis, Zoster, this is not meant to be an all-inclusive list. EKG interpreted by me (3pts min.). @ -Yes and demonstrates a ventricular pacemaker with a rate of 77. ND interval 132. QRS 140. QTc of 420. Pacemaker captures appropriately X-rays interpreted by me (1pt min.). @ -Yes and demonstrates no migration of the pacemaker or leads CT interpreted by me (1pt min.). @ -None done U/S interpreted by me (1pt. min.). @ -None done What testing was considered but not performed or refused? (CT, X-rays, U/S, labs)? Why? @ -Pacemaker interrogation, serial troponinspatient refused admission What meds were considered but not given or refused? Why? @ -None Did you discuss the management of the patient with other professionals (professionals i.e. , PA, CORRECTIONAL OFFICER, lab, RT, psych nurse, social work instructor, lead net software developer, teacher, traffic officer, manager case)? Give summary @ -No Was smoking cessation discussed for >3mins.? @ -No Was critical care preformed (if so, how long)? @ -No Were there social determinants of health that impacted care today? How? (Homelessness, low income, unemployed, alcoholism, drug addiction, transportation, low edu. Level, literacy, decrease access to med. care, alf, rehab)? @ -No Was there de-escalation of care discussed even if they declined (Discuss DNR or withdrawal of care, Hospice)? DNR status @ -No What co-morbidities impacted this encounter? (DM, HTN, Smoking, COPD, CAD, Cancer, CVA, ARF, Chemo, Hep., AIDS, mental health diagnosis, sleep apnea, morbid obesity)? @ -Pacemaker placement Was patient admitted / discharged? Hospital course, mention meds given and route, prescriptions, significant lab abnormalities, going to OR and other pertinent info. @ -Discharge. Upon arrival patient was seen in room 6. Thorough history and physical exam was performed. Twelve-lead EKG was obtained. Laboratory studies are conducted. Chest x-ray was performed. Patient's pacemaker appears to be functioning correctly at this time. He does have pain and tenderness localized around the pacemaker site however no signs of infection at this time. I did offer admission. Patient wanted to go home. He needs to follow-up with the cardiology office within 2 to 4 days and return for any new or worsening symptoms. Patient agreeable to plan was discharged in stable condition Undiagnosed new problem with uncertain prognosis? @ -Yes Drug Therapy requiring intensive monitoring for toxicity (Heparin, Nitro, Insulin, Cardizem)? @ -No Were any procedures done? @ -No Diagnosis/symptom? @ -Acute chest wall pain, status post pacemaker placement Acute, or Chronic, or Acute on Chronic? @ -Acute Uncomplicated (without systemic symptoms) or Complicated (systemic symptoms)? @ -Complicated Side effects of treatment? @ -No Exacerbation, Progression, or Severe Exacerbation? @ -No Poses a threat to life or bodily function? How? (Chest pain, [place], [place], pneumonia, PE, COPD, DKA, ARF, appy, cholecystitis, CVA, Diverticulitis, Homicidal, Suicidal, threat to staff... and all critical care pts) @ -No Disposition Clinical Impression: Chest wall pain Disposition: HOME SELF-CARE Condition: Stable Instructions (If sedation given, give patient instructions): Chest Wall Pain (ED) Additional Instructions: Please call and make an appointment with the shirt marker. Return to the emergency department for any new or worsening symptoms Is patient prescribed a controlled substance at d/c from ED?: No Referrals: Katie Lomeli, PAC [Primary Care Provider] - 1-2 days Time of Disposition: 17:33
[2023-11-19 17:45] VITALS: BP 116/72; PULSE 63; TEMP 98
== END 2023-11-19 17:45 | disposition home or self-care (01) ==
LOC: EC 14:13
DX: R07.89 Other chest pain (principal); I25.10 Atherosclerotic heart disease of native coronary artery without angina pectoris; I11.0 Hypertensive heart disease with heart failure; I50.9 Heart failure, unspecified; E11.9 Type 2 diabetes mellitus without complications; G47.30 Sleep apnea, unspecified; F17.200 Nicotine dependence, unspecified, uncomplicated; Z79.84 Long term (current) use of oral hypoglycemic drugs; Z79.01 Long term (current) use of anticoagulants; Z79.899 Other long term (current) drug therapy
CPT/HCPCS: 36415; 71046; 80053; 83735; 83880; 84484; 85025; 85610; 85730; 99285

== ENCOUNTER → 2024-04-06 | Outpatient (CLI) | payer OTHER ==
--- NOTE | 2024-04-06 15:14 | US ---
EXAMINATION TYPE: US kidneys/renal and bladder DATE OF EXAM: 04/06/2024 COMPARISON: CT abdomen pelvis 12/11/2022 CLINICAL INDICATION: Male, 69 years old with history of R94.4 ABN RESULTS OF KIDNEY FUNCTION STUDIES; abnormal renal function test EXAM MEASUREMENTS: Right Kidney: 10.5 x 6.2 x 4.8 cm Left Kidney: 12 x 4.8 x 3.4 cm Right Kidney: Cortical thinning Left Kidney: Cortical thinning Bladder: no fully distended There is no evidence for hydronephrosis at this point in time. No nephrolithiasis is seen. Cortical medullary differentiation is maintained. No masses are identified. Poor visualization of the urinary bladder due to underdistention. IMPRESSION: No hydronephrosis or nephrolithiasis.
== END | disposition home or self-care (01) ==
LOC: RADUSWWP 14:38
PROVIDERS: ATTEND Family Medicine
DX: R94.4 Abnormal results of kidney function studies (principal)
CPT/HCPCS: 76770

== ENCOUNTER 2024-10-29 08:51 | Day surgery (SDC) | payer OTHER ==
[2024-10-27 15:01] VITALS: BMI 41.5
[2024-10-29 09:21] VITALS: TEMP 97
[2024-10-29] MEDS: LACTATED RINGERS 1,000 ML IV SCH (09:30)
[2024-10-29] MEDS: IV FLUID CONTINUATION 1,000 ML IV ONE (09:30)
[2024-10-29 09:33] LABS: Glucose,Whole Blood 129 mg/dL (70-110)
[2024-10-29] MEDS ORDERED: LIDOCAINE 1% INJ 10MG/ML (20 ML MDV) ONE (09:50)
[2024-10-29] MEDS ORDERED: PROPOFOL 10 MG/ML 20 ML VIAL IV ONE (09:50)
--- NOTE | 2024-10-29 10:09 | P.PCN ---
Date of Procedure: 10/29/24 Procedure(s) Performed: BRIEF HISTORY: Patient is a 69-year-old pleasant right male scheduled for an elective colonoscopy as a part of screening for colon cancer. PROCEDURE PERFORMED: Colonoscopy. PREOPERATIVE DIAGNOSIS: Screening for colon cancer. IV sedation per Anesthesia. PROCEDURE: After informed consent was obtained, the patient, was brought into the endoscopy unit. IV sedation was administered by Anesthesia under continuous monitoring. Digital rectal examination was normal. Initially the Olympus CF-160 flexible video colonoscope was then inserted in the rectum, gradually advanced into the cecum without any difficulty. Careful examination was performed as the scope was gradually being withdrawn. Ileocecal valve and the appendiceal orifice were visualized and appeared normal. Prep was excellent. Mucosa of the cecum, ascending colon, transverse colon, descending colon, sigmoid colon, and rectum appeared normal. Retroflexion was performed in the rectum and no lesions were seen. The patient tolerated the procedure well. IMPRESSION: Normal-appearing colon from rectum to cecum no evidence of colorectal neoplasia RECOMMENDATIONS: Findings of this examination were discussed with the patient as well as his family. He was advised to have repeat screening colonoscopy in 10 years..
[2024-10-29 10:20] LABS: Glucose,Whole Blood 125 mg/dL (70-110)
[2024-10-29 10:51] VITALS: BP 133/80; PULSE 95; RESP 16
== END 2024-10-29 11:18 | disposition home or self-care (01) ==
LOC: ORWHC2ENDO 08:51
PROVIDERS: ATTEND Internal Medicine Gastroenterology
DX: Z12.11 Encounter for screening for malignant neoplasm of colon (principal)
CPT/HCPCS: J2003; J2704; G0121

== ENCOUNTER 2024-11-26 15:26 | Emergency (ER) | payer MEDICARE, OTHER ==
[2024-11-26 15:36] VITALS: TEMP 98.8
--- NOTE | 2024-11-26 16:04 | ED ---
Chest Pain HPI - General Chief Complaint: Chest Pain Stated Complaint: GEO Time Seen by Provider: 11/26/24 15:33 Source: EMS Mode of arrival: EMS Limitations: no limitations - History of Present Illness Initial Comments: This patient is a 69-year-old man, with history of previous aortic valve replacement he states approximately 3 to 4 years ago at [facility], as treatment for bicuspid aortic valve, who presents to have evaluation for substernal chest pain and shortness of breath. Patient states that the sensation of the pain is mostly type those slightly burning. He has not noted worsening or relieving factors. He has had some shortness of breath. Patient states he also has history of previous bronchitis and also previous pulmonary edema. He has not noted associated symptoms, no fever or chills. No leg pain or swelling, no change in urination or bowel movements. MD Complaint: chest pain Onset/Timin -: month(s) Onset: during rest Pain Location: substernal Pain Radiation: none Severity: moderate Quality: tightness, other (Burning) Consistency: constant Improves With: nothing Worsens With: nothing Anginal Symptoms: dyspnea Other Symptoms: cough Treatments Prior to Arrival: none - Related Data Home Medications Medication Instructions Recorded Confirmed PARoxetine HCL 30 mg PO DAILY 08/20/16 11/26/24 Apixaban [Eliquis] 5 mg PO BID 02/15/22 11/26/24 Atorvastatin [Lipitor] 10 mg PO HS 11/19/23 11/26/24 Bumetanide [BUMEX] 2 mg PO DAILY 11/19/23 11/26/24 Cholecalciferol [Vitamin D3 (25 25 mcg PO DAILY 11/19/23 11/26/24 Mcg = 1000 Iu)] Cyanocobalamin (Vitamin B-12) 3,000 mcg PO DAILY 11/19/23 11/26/24 [Vitamin B-12] Empagliflozin [Jardiance] 25 mg PO DAILY 11/19/23 11/26/24 Sacubitril/Valsartan [Entresto 49 1 tab PO BID 11/19/23 11/26/24 mg-51 mg Tablet] Spironolactone 50 mg PO BID 11/19/23 11/26/24 Ubidecarenone [Coenzyme Q10] 200 mg PO DAILY 11/19/23 11/26/24 carvediloL 6.25 mg PO BID 10/27/24 11/26/24 glipiZIDE 5 mg PO BID 10/27/24 11/26/24 Allergies Allergy/AdvReac Type Severity Reaction Status Date / Time No Known Allergies Allergy Verified 11/26/24 16:46 Review of Systems ROS Statement: Those systems with pertinent positive or pertinent negative responses have been documented in the HPI. ROS Other: All systems not noted in ROS Statement are negative. Constitutional: Denies: fever, chills, weakness Respiratory: Reports: cough, dyspnea. Denies: wheezes, hemoptysis Cardiovascular: Reports: chest pain, dyspnea on exertion. Denies: palpitations, orthopnea, edema, syncope Gastrointestinal: Denies: abdominal pain, nausea, vomiting, melena, hematochezia Genitourinary: Denies: dysuria, hematuria Musculoskeletal: Denies: back pain Skin: Denies: rash Neurological: Denies: headache, weakness EKG Findings - EKG Comments: EKG Findings:: The rhythm is paced with occasional PVC present, rate 96 bpm - EKG Results: EKG: interpreted by IRISH Past Medical History Past Medical History: Coronary Artery Disease (CAD), Heart Failure, Diabetes Mellitus, GERD/Reflux, Hyperlipidemia, Hypertension, Pneumonia, Sleep Apnea/CPAP/BIPAP Additional Past Medical History / Comment(s): Aortic stenosis, NIDDM type II, LIDNA with Cpap use, bilateral tinnitis, DDD, chronic low back pain, bronchitis. GOUT, History of Any Multi-Drug Resistant Organisms: None Reported Past Surgical History: Cholecystectomy, Coronary Bypass/CABG, Heart Catheterization, Orthopedic Surgery Additional Past Surgical History / Comment(s): carpal tunnel dave, COLONOSCOPY, open heart to bicuspid valve 2019 Past Anesthesia/Blood Transfusion Reactions: No Reported Reaction Additional Past Anesthesia/Blood Transfusion Reaction / Comment(s): no blood transfusion Past Psychological History: No Psychological Hx Reported Smoking Status: Former smoker Past Alcohol Use History: None Reported Past Drug Use History: None Reported - Past Family History Father Family Medical History: Cancer, Myocardial Infarction ([place]) Mother Family Medical History: Cancer Additional Family Medical History / Comment(s): Mother at 88yrs and pt states it was felt she might have had some form of cancer later in life. General Exam Limitations: no limitations General appearance: alert, in no apparent distress Head exam: Present: atraumatic, normocephalic Eye exam: Present: normal appearance. Absent: scleral icterus, conjunctival injection ENT exam: Present: normal oropharynx Neck exam: Present: normal inspection, full ROM Respiratory exam: Present: normal lung sounds bilaterally. Absent: respiratory distress, wheezes, rales, rhonchi, stridor, chest wall tenderness, accessory muscle use Cardiovascular Exam: Present: regular rate, normal rhythm, normal heart sounds. Absent: systolic murmur, diastolic murmur, rubs, gallop GI/Abdominal exam: Present: soft. Absent: distended, tenderness, guarding, rebound, rigid, mass Extremities exam: Present: normal inspection, normal capillary refill. Absent: pedal edema, calf tenderness Back exam: Present: normal inspection. Absent: CVA tenderness (R), CVA tenderness (L) Neurological exam: Present: alert Skin exam: Present: warm, dry, intact, normal color. Absent: rash Course Vital Signs 11/26/24 11/26/24 11/26/24 15:30 15:59 17:43 Temperature 98.8 F Pulse Rate 72 81 82 Respiratory 18 17 18 Rate Blood Pressure 145/82 132/76 134/74 O2 Sat by Pulse 98 97 98 Oximetry 11/26/24 11/26/24 19:00 20:01 Temperature Pulse Rate 87 82 Respiratory 18 18 Rate Blood Pressure 135/100 143/88 O2 Sat by Pulse 98 97 Oximetry Chest Pain MDM - MDM The patient had CT scan of the chest that I interpreted as negative for acute pulmonary embolism. The patient had chest x-ray that I interpreted as showing mild degree of vascular congestion suggestive of his CHF Was pt. sent in by a medical professional or institution (, PA, SHERIFF DEPUTY, urgent care, hospital, or prison...) When possible be specific @ -[No] Did you speak to anyone other than the patient for history (EMS, parent, family, police, friend...)? What history was obtained from this source @ -[No] Did you review nursing and triage notes (agree or disagree)? Why? @ -[I reviewed and agree with nursing and triage notes] Were old charts reviewed (outside hosp., previous admission, EMS record, old EKG, old radiological studies, urgent care reports/EKG's, prison records)? Report findings @ -[No old charts were reviewed] Differential Diagnosis (chest pain, altered mental status, abdominal pain women, abdominal pain men, vaginal bleeding, weakness, fever, dyspnea, syncope, headache, dizziness, GI bleed, back pain, seizure, CVA, palpatations, mental health, musculoskeletal)? @ -[differential Dyspnea: Coronary syndrome, arrhythmia, tamponade, asthma, COPD, pulmonary embolism, pneumonia, pneumothorax, pulmonary effusion, anaphylaxis, diabetic ketoacidosis, flailed chest, pulmonary contusion, diaphragmatic rupture, anemia, neuromuscular, this is not meant to be an all-inclusive list. EKG interpreted by me (3pts min.). @ -[I interpreted as above] X-rays interpreted by me (1pt min.). @ -[I interpreted as above CT interpreted by me (1pt min.). @ -[I interpreted as above U/S interpreted by me (1pt. min.). @ -[None done] What testing was considered but not performed or refused? (CT, X-rays, U/S, labs)? Why? @ -[None] What meds were considered but not given or refused? Why? @ -[None] Did you discuss the management of the patient with other professionals (professionals i.e. , PA, SHERIFF DEPUTY, lab, RT, psych nurse, socially responsible investment adviser, healthcare associate, teacher, air intelligence officer, case reviewer)? Give summary @ -[No] Was smoking cessation discussed for >3mins.? @ -[No] Was critical care preformed (if so, how long)? @ -[No] Were there social determinants of health that impacted care today? How? (Homelessness, low income, unemployed, alcoholism, drug addiction, transportation, low edu. Level, literacy, decrease access to med. care, [facility], rehab)? @ -[No] Was there de-escalation of care discussed even if they declined (Discuss DNR or withdrawal of care, Hospice)? DNR status @ -[No] What co-morbidities impacted this encounter? (DM, HTN, Smoking, COPD, CAD, Cancer, CVA, ARF, Chemo, Hep., AIDS, mental health diagnosis, sleep apnea, morbid obesity)? @ -[Hypertension, valve replacement Was patient admitted / discharged? Hospital course, mention meds given and route, prescriptions, significant lab abnormalities, going to OR and other pertinent info. @ -[Patient is 69-year-old man with history of valve replacement presenting with dyspnea and mild chest pain. The exam and workup suggestive of mild exacerbation of CHF, and I discussed with the patient option of admission versus treatment and he at this point would like to try outpatient course of diuresis and will return if the symptoms do not improve or if there is any worsening. Undiagnosed new problem with uncertain prognosis? @ -[No] Drug Therapy requiring intensive monitoring for toxicity (Heparin, Nitro, Insulin, Cardizem)? @ -[No] Were any procedures done? @ -[No] Diagnosis/symptom? @ -[Acute exacerbation of COPD Acute, or Chronic, or Acute on Chronic? @ -[Acute Uncomplicated (without systemic symptoms) or Complicated (systemic symptoms)? @ -[Complicated by dyspnea Side effects of treatment? @ -[No] Exacerbation, Progression, or Severe Exacerbation? @ -[Exacerbation of COPD Poses a threat to life or bodily function? How? (Chest pain, [place], [place], pneumonia, PE, COPD, DKA, ARF, appy, cholecystitis, CVA, Diverticulitis, Homicidal, Suicidal, threat to staff... and all critical care pts) @ -[No] All treatments are based on ideal body weight as in ED triage Disposition Clinical Impression: CHF (congestive heart failure), Chest pain Disposition: HOME SELF-CARE Condition: Good Instructions (If sedation given, give patient instructions): Heart Failure (DC), Chest Pain (ED) Additional Instructions: As we discussed, follow-up with your luggage liner. Take extra dose of Lasix for the next 3 days. Return here if there is any worsening or new symptoms develop. Is patient prescribed a controlled substance at d/c from ED?: No Referrals: Suraj Dumont DO [Primary Care Provider] - 1-2 days
[2024-11-26] MEDS: ASPIRIN 81 MG PO STA (16:05)
[2024-11-26] MEDS: NITROGLYCERIN OINT 1 INCH/GM PACKET TOPICAL STA (16:05)
[2024-11-26 16:24] LABS: Basophils % (A) 0 %; Eosinophils # (A) 0.2 k/uL (0-0.7); Eosinophils % (A) 3 %; HCT 39.5 % (39.0-53.0); HGB 12.7 gm/dL (13.0-17.5); Lymphocytes # (A) 1.9 k/uL (1.0-4.8); Lymphocytes % (A) 27 %; MCH 28.3 pg (25.0-35.0); MCHC 32.3 g/dL (31.0-37.0); MCV 87.9 fL (80.0-100.0); Mean Platelet Volume 7.5; Monocytes # (A) 0.3 k/uL (0-1.0); Monocytes % (A) 5 %; Neutrophils # (A) 4.5 k/uL (1.3-7.7); Neutrophils % (A) 64 %; Platelet Count 226 k/uL (150-450); RDW 14.2 % (11.5-15.5); WBC 7.1 k/uL (3.8-10.6)
[2024-11-26 16:30] LABS: Appearance,Urine Clear (Clear); Bilirubin,Urine Negative (Negative); Blood,Urine Negative (Negative); Color,Urine Yellow; Glucose,Urine (UA) Negative (Negative); Hyaline Casts,Urine 1 /lpf (0-2); Ketones,Urine Negative (Negative); Leukocyte Esterase,Urine Trace (Negative); Mucus,Urine Moderate /hpf; Nitrite,Urine Negative (Negative); PH, Urine 5.5 (5.0-8.0); Protein,Urine Trace (Negative); RBC,Urine <1 /hpf (0-5); Squamous Epithelial Cell,Urine 1 /hpf (0-4); WBC,Urine 3 /hpf (0-5)
--- NOTE | 2024-11-26 16:32 | XR ---
EXAMINATION TYPE: XR chest 2V DATE OF EXAM: 11/26/2024 4:27 PM COMPARISON: Multiple radiographs, with the most recent on 11/19/2023 TECHNIQUE: XR chest 2V Frontal and lateral views of the chest. CLINICAL INDICATION:Male, 69 years old with history of Chest Pain; FINDINGS: Lungs/Pleura: There is no evidence of pleural effusion, focal consolidation, or pneumothorax. Pulmonary vascularity: Unremarkable. Heart/mediastinum: Cardiomediastinal silhouette is enlarged and stable. Atherosclerotic calcificatio ns are seen in the aorta. Three lead cardiac conduction device overlying the left hemithorax with jose d tips projecting over the right ventricle, right atrium and coronary sinus. Cardiac valvular prosthe sis. Musculoskeletal: No acute osseous pathology. DISH of the thoracic spine. Midline sternotomy wires are noted and stable. IMPRESSION: Chronic changes without acute pulmonary process. No significant change from prior. [facility], , 11/26/2024 4:30 PM
[2024-11-26 16:34] LABS: ALT 28 U/L (4-49); AST 24 U/L (17-59); African American GFR (CKD) 76 (>60 ml/min/1.73 sqM); Albumin 3.9 g/dL (3.5-5.0); Alkaline Phosphatase 48 U/L (38-126); Amylase 39 U/L (30-110); Anion Gap 9 mmol/L; Blood Urea Nitrogen 24 mg/dL (9-20); Calcium 8.9 mg/dL (8.4-10.2); Carbon Dioxide 20 mmol/L (22-30); Chloride 110 mmol/L (98-107); Glucose 115 mg/dL (74-99); Lipase 36 U/L (23-300); Magnesium 2.1 mg/dL (1.6-2.3); Non-African American GFR(CKD) 66 (>60 ml/min/1.73 sqM); Potassium 4.6 mmol/L (3.5-5.1); Sodium 139 mmol/L (137-145); Total Bilirubin 1.2 mg/dL (0.2-1.3); Total Protein 6.7 g/dL (6.3-8.2)
[2024-11-26 16:39] LABS: Partial Thromboplastin Time 22.5 sec (22.0-30.0); Prothrombin Time 11.3 sec (10.0-12.5)
[2024-11-26 16:43] LABS: NT-Pro-B-Type Natriuretic Pept 2970 pg/mL
[2024-11-26 17:44] VITALS: RESP 18
--- NOTE | 2024-11-26 18:09 | CT ---
EXAMINATION TYPE: CT chest angio for PE DATE OF EXAM: 11/26/2024 5:45 PM COMPARISON: None. CLINICAL INDICATION: Male, 69 years old with history of chest pain and dyspnea, possible PE, Chest pa in and dyspnea, possible PE., TECHNIQUE: CT of the chest is performed on a spiral scan at 2 mm thick sections. Study is performed with intravenous contrast timed for evaluation for pulmonary embolism. This will limit additional po rtions of the evaluation. 3-D MIP images reconstructed by the technologist are reviewed on the compu ter in the coronal and sagittal planes. Contrast used:100 ml mL of Isovue 370 with IV Contrast, (none if empty) Oral contrast used: (none if empty) CT DLP: 675.9 mGycm, Automated exposure control for dose reduction was used. FINDINGS: No persistent filling defects are evident to suggest an acute pulmonary embolism. No mediastinal or hilar adenopathy enlarged by CT criteria is evident. The ascending aorta diameter at the level of the main pulmonary artery is 3.9 cm. The main pulmonary artery diameter at the bifurcation is 2.9 cm. Lung windows are clear. Limited CT sections were through the upper abdomen. Upper abdomen appears unremarkable. IMPRESSION: 1. No acute pulmonary embolism. 2. No acute pulmonary process. [facility], , 11/26/2024 6:07 PM
[2024-11-26] MEDS: FUROSEMIDE 10 MG/ML 4 ML VIAL IV STA (19:30)
[2024-11-26 20:02] VITALS: BP 143/88; PULSE 82
== END 2024-11-26 20:25 | disposition home or self-care (01) ==
LOC: EC 15:26
DX: I11.0 Hypertensive heart disease with heart failure (principal); Z95.2 Presence of prosthetic heart valve; Z87.891 Personal history of nicotine dependence
CPT/HCPCS: 36415; 93005; 85379; 83880; 80053; 82150; 83690; 83735; 84484; 85025; 85610; 85730; 81001; 71046; 71275; 99285; 96374; J1940; Q9967

== ENCOUNTER 2025-03-13 20:00 | Inpatient (IN) | payer OTHER, MEDICARE ==
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
[2025-03-13 20:15] LABS: Basophils # (A) 0.03 10*3/uL (0.00-0.10); Basophils % (A) 0.4 %; Eosinophils # (A) 0.11 10*3/uL (0.04-0.35); Eosinophils % (A) 1.4 %; HCT 37.1 % (39.6-50.0); HGB 12.4 g/dL (13.0-17.0); Lymphocytes # (A) 2.52 10*3/uL (0.90-5.00); MCH 29.4 pg (27.0-32.0); MCHC 33.4 g/dL (32.0-37.0); MCV 87.9 fL (80.0-97.0); Monocytes # (A) 0.44 10*3/uL (0.20-1.00); Monocytes % (A) 5.8 %; Neutrophils # (A) 4.47 10*3/uL (1.80-7.70); Neutrophils % (A) 58.5 %; Platelet Count 173 10*3/uL (140-440); RBC 4.22 10*6/uL (4.40-5.60); WBC 7.64 10*3/uL (4.50-10.00)
[2025-03-13] MEDS: TRANEXAMIC 1,000 MG/100ML-NACL 1,000 MG in SALINE 1 100ML.BAG IV STA (20:23)
[2025-03-13] MEDS: SODIUM CHLORIDE 0.9% 1,000 ML IV STA (20:23)
[2025-03-13 20:25] LABS: INR 1.1 (<1.2); Prothrombin Time 11.6 sec (10.0-12.5)
[2025-03-13] MEDS: HYDROmorphone 1 MG/ML 1 ML SYRINGE IVP STA (20:25)
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
[2025-03-13 20:27] LABS: ALT 19 U/L (4-49); African American GFR (CKD) 72 (>60 ml/min/1.73 sqM); Albumin 3.8 g/dL (3.5-5.0); Alcohol <10 mg/dL; Anion Gap 14 mmol/L; Blood Urea Nitrogen 31 mg/dL (9-20); Calcium 8.5 mg/dL (8.4-10.2); Carbon Dioxide 16 mmol/L (22-30); Chloride 107 mmol/L (98-107); Glucose 197 mg/dL (74-99); Non-African American GFR(CKD) 63 (>60 ml/min/1.73 sqM); Sodium 137 mmol/L (137-145); Total Bilirubin 0.9 mg/dL (0.2-1.3); Total Protein 6.5 g/dL (6.3-8.2)
[2025-03-13 20:28] LABS: AST 27 U/L (17-59); Alkaline Phosphatase 54 U/L (38-126); Potassium 4.3 mmol/L (3.5-5.1)
[2025-03-13 20:31] LABS: Glucose,Whole Blood 202 mg/dL (70-110)
[2025-03-13] MEDS: ONDANSETRON 4 MG/2 ML VIAL IVP STA (20:45)
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
[2025-03-13 21:23] LABS: Amphetamine Screen,Urine Not Detected (NotDetected); Barbiturate Screen,Urine Not Detected (NotDetected); Benzodiazepines Screen,Urine Not Detected (NotDetected); Cocaine Screen,Urine Not Detected (NotDetected); Methadone Screen, Urine Not Detected (NotDetected); Opiate Screen,Urine Detected (NotDetected); Oxycodone Screen, Urine Not Detected (NotDetected); Phencyclidine Screen,Urine Not Detected (NotDetected); Tricyclic Antidepressant,Urine Not Detected (NotDetected); Urn Cannabinoid Scrn Not Detected (NotDetected)
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
--- NOTE | 2025-03-13 22:33 | XR ---
EXAMINATION TYPE: XR ankle complete bilateral DATE OF EXAM: 03/13/2025 8:52 PM COMPARISON: None. CLINICAL INDICATION: Male, 70 years old with history of pain, pain TECHNIQUE: 3 view(s) obtained each ankle. FINDINGS: There is a tiny linear ossification inferior medial to the left medial malleolus. Tiny avulsion is no t excluded. There is mild soft tissue swelling over the bilateral lateral malleoli. Displaced fractures are otherwise evident. Ankle mortise is intact bilaterally. Follow up exams can be performed 7-10 days from acute trauma for continued pain. IMPRESSION: 1. Tiny avulsion from the left medial malleolus not excluded. 2. No additional areas suspicious for fracture evident. 3. Bilateral lateral malleolar soft tissue swelling may be present [facility], , 03/13/2025 10:30 PM
[2025-03-13] MEDS: SODIUM CHLORIDE 0.9% 500 ML 500 ML IV ONE (22:54)
[2025-03-13] MEDS: ACETAMINOPHEN IV (For NPO) 1,000 MG in EMPTY BAG 1 BAG IVPB STA (22:56)
[2025-03-13] MEDS: KETOROLAC 15 MG/ML 1 ML VIAL IVP STA (22:56)
[2025-03-13] MEDS ORDERED: NALOXONE 0.4 MG/ML 1 ML VIAL IV PRN (23:27)
[2025-03-14] MEDS: HYDROmorphone 1 MG/ML 1 ML SYRINGE IVP STA ×2 (01:13)
[2025-03-14] MEDS: traMADol 50 MG STARTER PACK 3 TAB BTL PO STA (01:22)
[2025-03-14] MEDS: DEXTROSE 5%-0.45% NACL 1,000 ML IV SCH (01:53)
[2025-03-14] MEDS: ONDANSETRON 4 MG/2 ML VIAL IVP PRN (04:46)
[2025-03-14] MEDS: HYDROmorphone 1 MG/ML 1 ML SYRINGE IVP PRN (04:46)
[2025-03-14 06:22] LABS: Basophils # (A) 0.02 10*3/uL (0.00-0.10); Basophils % (A) 0.3 %; Eosinophils # (A) 0.03 10*3/uL (0.04-0.35); Eosinophils % (A) 0.5 %; HCT 35.2 % (39.6-50.0); HGB 11.2 g/dL (13.0-17.0); Lymphocytes # (A) 0.96 10*3/uL (0.90-5.00); MCH 28.5 pg (27.0-32.0); MCHC 31.8 g/dL (32.0-37.0); MCV 89.6 fL (80.0-97.0); Mean Platelet Volume 9.4 fL (9.5-12.2); Monocytes % (A) 7.8 %; Neutrophils # (A) 4.88 10*3/uL (1.80-7.70); Neutrophils % (A) 76.2 %; Platelet Count 157 10*3/uL (140-440); RBC 3.93 10*6/uL (4.40-5.60); RDW 13.9 % (11.5-14.5)
[2025-03-14 06:49] LABS: ALT 21 U/L (4-49); AST 37 U/L (17-59); African American GFR (CKD) 73 (>60 ml/min/1.73 sqM); Albumin 3.4 g/dL (3.5-5.0); Alkaline Phosphatase 52 U/L (38-126); Anion Gap 2 mmol/L; Blood Urea Nitrogen 28 mg/dL (9-20); Calcium 8.5 mg/dL (8.4-10.2); Carbon Dioxide 22 mmol/L (22-30); Chloride 108 mmol/L (98-107); Glucose 147 mg/dL (74-99); Magnesium 1.9 mg/dL (1.6-2.3); Non-African American GFR(CKD) 63 (>60 ml/min/1.73 sqM); Potassium 4.1 mmol/L (3.5-5.1); Sodium 132 mmol/L (137-145); Total Bilirubin 0.8 mg/dL (0.2-1.3); Total Protein 5.9 g/dL (6.3-8.2)
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
[2025-03-14] MEDS ORDERED: ACETAMINOPHEN TAB 325 MG TAB PO PRN (08:09)
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
[2025-03-14] MEDS ORDERED: DEXTROSE 50% SYRINGE 50 ML IVP PRN ×2 (09:23)
--- NOTE | 2025-03-14 10:56 | XR ---
EXAMINATION TYPE: XR chest 1V DATE OF EXAM: 03/14/2025 10:46 AM COMPARISON: Chest radiographs from 03/13/2025 TECHNIQUE: XR chest 1V Portable AP radiograph of the chest. CLINICAL INDICATION:Male, 70 years old with history of Increasing shortness of breath; FINDINGS: Lungs/Pleura: There is no evidence of pleural effusion, focal consolidation, or pneumothorax. Pulmonary vascularity: Unremarkable. Heart/mediastinum: Cardiomediastinal silhouette is enlarged and stable. Three lead cardiac conduction device overlying the left hemithorax with lead tips projecting over the right ventricle, right atriu m and coronary sinus. Musculoskeletal: No acute osseous pathology. Midline sternotomy wires are noted and stable. Couple of the upper sternal wires are again fractured. IMPRESSION: Chronic changes without acute pulmonary process. No significant change from prior. [facility], , 03/14/2025 10:54 AM
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
[2025-03-14] MEDS: FAMOTIDINE 20 MG TAB PO SCH (11:13)
[2025-03-14] MEDS: DIPH,PERTUS(ACELL)TETVAC-LF 0.5 ML VIAL IM ONE (11:13)
[2025-03-14] MEDS: HYDROcodone/APAP 5-325MG 1 EACH TAB PO PRN (11:13)
[2025-03-14] MEDS: carvediloL 6.25 MG TAB PO SCH (11:13)
[2025-03-14 12:38] LABS: Glucose,Whole Blood 167 mg/dL (70-110)
[2025-03-14] MEDS: INSULIN LISPRO (HumaLOG) 100 UNIT/ML 10 mL VL SQ SCH (13:28)
[2025-03-14] MEDS: PARoxetine 10 MG TAB PO SCH (16:07)
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
[2025-03-14 17:19] LABS: Glucose,Whole Blood 149 mg/dL (70-110)
[2025-03-14 20:20] LABS: Glucose,Whole Blood 172 mg/dL (70-110)
[2025-03-14] MEDS: ENOXAPARIN 30 MG/0.3 ML SYRINGE SQ SCH (20:53)
[2025-03-15 07:16] LABS: Glucose,Whole Blood 128 mg/dL (70-110)
[2025-03-15 08:08] LABS: HCT 37.2 % (39.6-50.0); HGB 11.7 g/dL (13.0-17.0); MCH 29.2 pg (27.0-32.0); MCHC 31.5 g/dL (32.0-37.0); MCV 92.8 FL (80.0-97.0); Mean Platelet Volume 10.2 FL (9.5-12.2); NRBC Per 100 WBC 0 X 10*3/uL (0.00-0.01); Platelet Count 178 X 10*3/uL (140-440); RBC 4.01 X 10*6/uL (4.40-5.60); RDW 14.1 % (11.5-14.5); WBC 7.11 X 10*3/uL (4.50-10.00)
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
[2025-03-15 09:07] LABS: ALT 25 U/L (10-49); AST 40 U/L (14-35); Albumin 3.9 g/dL (3.8-4.9); Albumin/Globulin Ratio 1.56 Ratio (1.60-3.17); Alkaline Phosphatase 62 U/L (41-126); BUN/Creat Ratio 21.58 Ratio (12.00-20.00); Blood Urea Nitrogen 25.9 mg/dL (9.0-27.0); Calcium 8.7 mg/dL (8.7-10.3); Chloride 108 mmol/L (96-109); Globulin 2.5 g/dL (1.6-3.3); Glucose 163 mg/dL (70-110); Magnesium 2.1 mg/dL (1.5-2.4); Potassium 5.2 mmol/L (3.5-5.5); Sodium 140 mmol/L (135-145); Total Protein 6.4 g/dL (6.2-8.2)
[2025-03-15] MEDS: ASPIRIN 81 MG PO SCH (09:41)
[2025-03-15] MEDS: DAPAGLIFLOZIN PROPANEDIOL 10 MG TABLET PO SCH (09:41)
--- NOTE | 2025-03-15 09:41 | XR ---
EXAMINATION TYPE: XR shoulder complete LT DATE OF EXAM: 03/15/2025 9:34 AM INDICATION: Patient age:Male; 70 years old; Reason for study: pain; pain COMPARISON: Chest radiograph 03/15/2025 TECHNIQUE: The left shoulder was examined in AP, internally rotated and scapular Y projections. . FINDINGS: No evidence of acute osseous pathology, joint dislocation, or soft tissue swelling. The remaining por tions of the visualized chest are unremarkable. Partial visualization of sternotomy wires with a few of the upper sternotomy wires fractured again. Partial visualization of cardiac pacemaker leads. IMPRESSION: No acute osseous pathology. [facility], , 03/15/2025 9:39 AM
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
[2025-03-15] MEDS: PETROLAT,WHITE/LAN/8-HYDROXYQU 227 GM OINT TOPICAL SCH (12:39)
[2025-03-15 12:54] LABS: Glucose,Whole Blood 138 mg/dL (70-110)
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
[2025-03-15 17:25] LABS: Glucose,Whole Blood 131 mg/dL (70-110)
[2025-03-15 20:31] LABS: Glucose,Whole Blood 137 mg/dL (70-110)
--- NOTE | 2025-03-16 07:18 | CA ---
Transthoracic Echo Report Name: Duane Ritter Age: 70 Gender: M : 1955 Exam Date: 03/15/2025 14:06 Exam Location: [facility] Ht (in): 70 Wt (lb): 284 Ordering Physician: Roberto Figueroa Attending/Referring Phys: Dynamometer Tester Engine Sayra Ang RDCS Procedure CPT: Indications: r/o cardiac contusion Cardiac Hx: Technical Quality: Poor, Technically difficult study Contrast 1: Definity Total Dose (mL): 83 Contrast 2: Total Dose (mL): MEASUREMENTS (Male / Female) Normal Values 2D ECHO LV Diastolic Diameter PLAX 5.5 cm 4.2 - 5.9 / 3.9 - 5.3 cm LV Systolic Diameter PLAX 5.0 cm IVS Diastolic Thickness 1.2 cm 0.6 - 1.0 / 0.6 - 0.9 cm LVPW Diastolic Thickness 1.1 cm 0.6 - 1.0 / 0.6 - 0.9 cm LV Relative Wall Thickness 0.4 RV Internal Dim ED PLAX 2.9 cm LVOT Diameter 2.2 cm LA Systolic Diameter LX 5.6 cm 3.0 - 4.0 / 2.7 - 3.8 cm M-MODE Aortic Root Diameter MM 2.6 cm LA Systolic Diameter MM 5.4 cm LA Ao Ratio MM 2.1 DOPPLER AV Peak Velocity 200.0 cm/s AV Peak Gradient 16.0 mmHg AV Mean Velocity 145.7 cm/s AV Mean Gradient 9.3 mmHg AV Velocity Time Integral 43.8 cm LVOT Peak Velocity 82.0 cm/s LVOT Peak Gradient 2.7 mmHg LVOT Velocity Time Integral 17.3 cm LVOT Stroke Volume 63.4 cm??? LVOT Stroke Volume Index 26.2 ml/m??? LVOT Cardiac Index 2039.1 cm???/min???m??? AV Area Cont Eq vti 1.4 cm??? AV Area Cont Eq pk 1.5 cm??? MV Area PHT 2.3 cm??? Mitral E Point Velocity 101.4 cm/s Mitral A Point Velocity 0.0 cm/s Mitral E to A Ratio 30096.2 MV Deceleration Time 331.1 ms TR Peak Velocity 306.7 cm/s TR Peak Gradient 37.6 mmHg Right Ventricular Systolic Press 42.1 mmHg FINDINGS Left Ventricle Left ventricular ejection fraction is estimated at 15-20 %. Left ventricular cavity size normal. Mildly increased left ventricular wall thickness. Severely reduced global left ventricular systolic function. Right Ventricle Mild right ventricular dilatation. Mild pulmonary hypertension. Right Atrium Moderate right atrial dilatation. Catheter/pacemaker wire in the right atrial cavity. Left Atrium Severely increased left atrial diameter. Mildly increased left atrial area. Mitral Valve Structurally normal mitral valve. Moderate mitral regurgitation. No mitral stenosis. Aortic Valve Normally functioning prosthetic aortic valve, with a peak gradient of 16 mmHg and a mean gradient of 9.3mmHg. No aortic regurgitation. Tricuspid Valve Structurally normal tricuspid valve. moderate tricuspid regurgitation. Pulmonic Valve Pulmonic valve not well visualized. Pericardium No pericardial or pleural effusion. Aorta Normal size aortic root and proximal ascending aorta. CONCLUSIONS 1. Severely impaired left ventricular systolic function with global hypokinesis 2. Bioprosthetic aortic valve with a mean gradient of 9 mmHg 3. Moderate mitral and tricuspid regurgitation with moderate pulmonary hypertension 4. A wire was noted in the right ventricle Definity ECHO contrast used for improved visualization of the endocardial borders (inadequate visualization of two or more contiguous segments). Previewed by: Dr. Fannie Arriaga MD (Electronically Signed) Final Date: 16 March 2025 07:17
[2025-03-16 07:24] LABS: Glucose,Whole Blood 143 mg/dL (70-110)
[2025-03-16 08:09] VITALS: TEMP 97.7
[2025-03-16 12:27] LABS: Glucose,Whole Blood 144 mg/dL (70-110)
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
[2025-03-16 13:08] VITALS: BP 135/81; PULSE 64; RESP 16
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
== END 2025-03-16 14:29 | disposition home health service (06) | DRG 89 ==
LOC: EC 20:00 → 6NMEDSUR 23:27 → OBSVTOIN 23:28 → 5NMEDONC 03-14 02:26
PROVIDERS: ADMIT Surgery; ATTEND Surgery
PROC: 4B02XTZ Measurement of Cardiac Defibrillator, External Approach (ICD-10-PCS; principal; 2025-03-14)
PROC: 5A09357 Assistance with Respiratory Ventilation, Less than 24 Consecutive Hours, Continuous Positive Airway Pressure (ICD-10-PCS; 2025-03-14)
DX: S06.0XAA Concussion with loss of consciousness status unknown, initial encounter (principal); E87.20 Acidosis, unspecified; I47.20 Ventricular tachycardia, unspecified; I42.8 Other cardiomyopathies; D64.9 Anemia, unspecified; E11.9 Type 2 diabetes mellitus without complications; L97.911 Non-pressure chronic ulcer of unspecified part of right lower leg limited to breakdown of skin; L97.921 Non-pressure chronic ulcer of unspecified part of left lower leg limited to breakdown of skin; Z68.41 Body mass index [BMI] 40.0-44.9, adult; I50.22 Chronic systolic (congestive) heart failure; I48.19 Other persistent atrial fibrillation; L98.491 Non-pressure chronic ulcer of skin of other sites limited to breakdown of skin; I11.0 Hypertensive heart disease with heart failure; E66.01 Morbid (severe) obesity due to excess calories; Z95.3 Presence of xenogenic heart valve; S40.012A Contusion of left shoulder, initial encounter; S00.81XA Abrasion of other part of head, initial encounter; S93.402A Sprain of unspecified ligament of left ankle, initial encounter; E78.5 Hyperlipidemia, unspecified; R00.1 Bradycardia, unspecified; I08.1 Rheumatic disorders of both mitral and tricuspid valves; I25.10 Atherosclerotic heart disease of native coronary artery without angina pectoris; M10.9 Gout, unspecified; G47.33 Obstructive sleep apnea (adult) (pediatric); G89.29 Other chronic pain; M54.50 Low back pain, unspecified; I44.7 Left bundle-branch block, unspecified; R40.2412 Glasgow coma scale score 13-15, at arrival to emergency department; F17.290 Nicotine dependence, other tobacco product, uncomplicated; Z79.01 Long term (current) use of anticoagulants; Z79.82 Long term (current) use of aspirin; Z79.84 Long term (current) use of oral hypoglycemic drugs; Z79.899 Other long term (current) drug therapy; Z95.1 Presence of aortocoronary bypass graft; Z95.0 Presence of cardiac pacemaker; V20.49XA Other motorcycle driver injured in collision with pedestrian or animal in traffic accident, initial encounter; Y92.410 Unspecified street and highway as the place of occurrence of the external cause; Z88.8 Allergy status to other drugs, medicaments and biological substances
CPT/HCPCS: 36415; 70450; 70486; 71045; 71260; 72125; 72170; 74177; 80053; 80306; 80320; 83036; 83605; 83735; 84100; 84484; 85025; 85027; 85610; 85730; 86850; 86900; 86901; 90715; 93005; 93306; 94660; 96361; 96365; 96366; 96375; 96376; 99285; 99291

== ENCOUNTER 2025-03-29 04:07 | Emergency (ER) | payer OTHER, MEDICARE ==
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
[2025-03-29 04:13] VITALS: TEMP 97.8
[2025-03-29] MEDS: SODIUM CHLORIDE 0.9% 1,000 ML IV STA (04:48)
[2025-03-29] MEDS: MORPHINE SULFATE 4 MG/ML SYRINGE IV STA (04:48)
[2025-03-29 04:51] LABS: Basophils # (A) 0.05 10*3/uL (0.00-0.10); Basophils % (A) 0.7 %; Eosinophils # (A) 0.15 10*3/uL (0.04-0.35); Eosinophils % (A) 2.1 %; HCT 37.6 % (39.6-50.0); HGB 12.2 g/dL (13.0-17.0); Lymphocytes # (A) 1.77 10*3/uL (0.90-5.00); Lymphocytes % (A) 25.1 %; MCH 28.8 pg (27.0-32.0); MCHC 32.4 g/dL (32.0-37.0); MCV 88.7 fL (80.0-97.0); Monocytes # (A) 0.46 10*3/uL (0.20-1.00); Monocytes % (A) 6.5 %; Neutrophils % (A) 65.2 %; Platelet Count 313 10*3/uL (140-440); RBC 4.24 10*6/uL (4.40-5.60); RDW 13.7 % (11.5-14.5); WBC 7.06 10*3/uL (4.50-10.00)
[2025-03-29 05:06] LABS: ALT 20 U/L (4-49); AST 24 U/L (17-59); African American GFR (CKD) 65 (>60 ml/min/1.73 sqM); Albumin 4.3 g/dL (3.5-5.0); Alkaline Phosphatase 111 U/L (38-126); Anion Gap 13 mmol/L; Blood Urea Nitrogen 29 mg/dL (9-20); Calcium 9.5 mg/dL (8.4-10.2); Carbon Dioxide 23 mmol/L (22-30); Chloride 105 mmol/L (98-107); Glucose 110 mg/dL (74-99); Lipase 31 U/L (23-300); Magnesium 2.1 mg/dL (1.6-2.3); Non-African American GFR(CKD) 56 (>60 ml/min/1.73 sqM); Potassium 4.2 mmol/L (3.5-5.1); Sodium 141 mmol/L (137-145); Total Bilirubin 0.9 mg/dL (0.2-1.3); Total Protein 7.7 g/dL (6.3-8.2)
[2025-03-29 05:10] LABS: INR 1.1 (<1.2); Partial Thromboplastin Time 26.1 sec (22.0-30.0); Prothrombin Time 12.3 sec (10.0-12.5)
[2025-03-29 05:14] LABS: NT-Pro-B-Type Natriuretic Pept 4780 pg/mL
[2025-03-29 06:10] VITALS: RESP 18
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
[2025-03-29 07:02] VITALS: BP 130/75; PULSE 64
[2025-03-30] MEDS: KETOROLAC 15 MG/ML 1 ML VIAL IVP STA (07:56)
[2025-03-30] MEDS: traMADol 50 MG STARTER PACK 3 TAB BTL PO STA (07:57)
== END 2025-03-29 07:01 | disposition home or self-care (01) ==
LOC: EC 04:07
DX: R07.89 Other chest pain (principal); M94.0 Chondrocostal junction syndrome [Tietze]; Z87.891 Personal history of nicotine dependence; Z88.8 Allergy status to other drugs, medicaments and biological substances
CPT/HCPCS: 36415; 93005; 85379; 83880; 80053; 83690; 83735; 84484; 85025; 85610; 85730; 71275; 99285; 96374; 96375; 96361; J2270; Q9967

== ENCOUNTER 2025-03-31 23:29 | Observation (INO) | payer OTHER, MEDICARE ==
[2025-04-01] MEDS: LORazepam 1 MG TAB PO STA (00:51)
[2025-04-01 01:16] LABS: Basophils # (A) 0.06 10*3/uL (0.00-0.10); Eosinophils # (A) 0.16 10*3/uL (0.04-0.35); Eosinophils % (A) 2.7 %; HCT 35.4 % (39.6-50.0); HGB 11.7 g/dL (13.0-17.0); Lymphocytes # (A) 1.78 10*3/uL (0.90-5.00); Lymphocytes % (A) 30.4 %; MCH 29.1 pg (27.0-32.0); MCHC 33.1 g/dL (32.0-37.0); MCV 88.1 fL (80.0-97.0); Mean Platelet Volume 8.9 fL (9.5-12.2); Monocytes # (A) 0.45 10*3/uL (0.20-1.00); Monocytes % (A) 7.7 %; Neutrophils # (A) 3.38 10*3/uL (1.80-7.70); Neutrophils % (A) 57.9 %; Platelet Count 301 10*3/uL (140-440); RBC 4.02 10*6/uL (4.40-5.60); RDW 13.8 % (11.5-14.5); WBC 5.85 10*3/uL (4.50-10.00)
[2025-04-01 01:21] LABS: Partial Thromboplastin Time 23.1 sec (22.0-30.0); Prothrombin Time 11.1 sec (10.0-12.5)
[2025-04-01 01:23] LABS: ALT 14 U/L (4-49); AST 23 U/L (17-59); African American GFR (CKD) 87 (>60 ml/min/1.73 sqM); Albumin 3.8 g/dL (3.5-5.0); Alkaline Phosphatase 98 U/L (38-126); Anion Gap 11 mmol/L; Blood Urea Nitrogen 31 mg/dL (9-20); Carbon Dioxide 22 mmol/L (22-30); Chloride 105 mmol/L (98-107); Glucose 115 mg/dL (74-99); Magnesium 2.2 mg/dL (1.6-2.3); Non-African American GFR(CKD) 75 (>60 ml/min/1.73 sqM); Potassium 4.5 mmol/L (3.5-5.1); Sodium 138 mmol/L (137-145); Total Bilirubin 0.8 mg/dL (0.2-1.3); Total Protein 6.8 g/dL (6.3-8.2)
[2025-04-01 01:32] LABS: NT-Pro-B-Type Natriuretic Pept 2080 pg/mL
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
[2025-04-01] MEDS: FUROSEMIDE 10 MG/ML 4 ML VIAL IV STA (02:35)
--- NOTE | 2025-04-01 03:15 | XR ---
EXAM: XR Chest, 2 Views CLINICAL HISTORY: ITS.REASON XR Reason: difficulty breathing TECHNIQUE: Frontal and lateral views of the chest. COMPARISON: No relevant prior studies available. FINDINGS: Lungs: No consolidation or mass. Pleural space: No effusion. Heart: cardiomegaly. Bones/joints: No acute findings. IMPRESSION: No acute cardiopulmonary process.
[2025-04-01] MEDS ORDERED: ONDANSETRON 4 MG/2 ML VIAL IVP PRN (03:20)
[2025-04-01] MEDS ORDERED: NALOXONE 0.4 MG/ML 1 ML VIAL IV PRN (03:20)
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
[2025-04-01] MEDS: SPIRONOLACTONE 25 MG TAB PO SCH (09:27)
[2025-04-01] MEDS: FUROSEMIDE 10 MG/ML 4 ML VIAL IV SCH (09:27)
[2025-04-01] MEDS: ASPIRIN 81 MG PO SCH (09:27)
[2025-04-01] MEDS: APIXABAN 5 MG TAB PO SCH (09:27)
[2025-04-01] MEDS: carvediloL 6.25 MG TAB PO SCH (09:27)
[2025-04-01] MEDS: DAPAGLIFLOZIN PROPANEDIOL 10 MG TABLET PO SCH (09:27)
--- NOTE | 2025-04-01 10:42 | US ---
EXAMINATION TYPE: US venous doppler duplex LE RT DATE OF EXAM: 04/01/2025 9:01 AM COMPARISON: 2019 CLINICAL INDICATION: Male, 70 years old with history of Rule out DVT; rule out DVT, Pain TECHNIQUE: The lower extremity deep venous system is examined utilizing real time linear array sonog devorah with graded compression, color doppler sonography, and spectral doppler. SIDE PERFORMED: Right FINDINGS: VESSELS IMAGED: Common Femoral Vein Deep Femoral Vein Greater Saphenous Vein * Femoral Vein Popliteal Vein Small Saphenous Vein * Proximal Calf Veins (* superficial vessels) Right Leg: No evidence for DVT, Color Doppler imaging shows patency of the vessels. Spectral wavefor ms are within normal limits. IMPRESSION: 1. Right lower extremity ultrasound negative for deep venous thrombosis [facility], , 04/01/2025 10:40 AM
[2025-04-01 11:15] LABS: Glucose,Whole Blood 140 mg/dL (70-110)
[2025-04-01] MEDS ORDERED: DEXTROSE 50% SYRINGE 50 ML IVP PRN ×2 (13:02)
[2025-04-01 13:07] VITALS: RESP 18
[2025-04-01 16:24] LABS: Glucose,Whole Blood 128 mg/dL (70-110)
[2025-04-01] MEDS: INSULIN LISPRO (HumaLOG) 100 UNIT/ML 10 mL VL SQ SCH (18:41)
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
[2025-04-01 20:16] LABS: Glucose,Whole Blood 127 mg/dL (70-110)
[2025-04-01] MEDS: SACUBITRIL/VALSARTAN 49 MG-51 MG TABLET PO SCH (21:55)
[2025-04-01] MEDS: ATORVASTATIN 10 MG TAB PO SCH (21:55)
[2025-04-02 05:32] LABS: Appearance,Urine Clear (Clear); Bilirubin,Urine Negative (Negative); Blood,Urine Negative (Negative); Color,Urine Light Yellow; Glucose,Urine (UA) 4+ (Negative); Ketones,Urine Negative (Negative); Leukocyte Esterase,Urine Negative (Negative); Nitrite,Urine Negative (Negative); PH, Urine 6.5 (5.0-8.0); Protein,Urine Negative (Negative); Specific Gravity,Urine 1.019 (1.001-1.035)
[2025-04-02 06:04] LABS: Glucose,Whole Blood 133 mg/dL (70-110)
[2025-04-02] MEDS: polyethylene glycoL 3350 17 GM POWD.PACK PO SCH (08:36)
[2025-04-02] MEDS: PARoxetine 10 MG TAB PO SCH (08:37)
[2025-04-02] MEDS: HYDROcodone/APAP 5-325MG 1 EACH TAB PO PRN (08:45)
[2025-04-02] MEDS: ASCORBIC ACID 500 MG TAB PO SCH (08:46)
[2025-04-02 09:26] LABS: Basophils # (A) 0.05 X 10*3/uL (0.00-0.10); Basophils % (A) 0.6 %; Eosinophils # (A) 0.15 X 10*3/uL (0.04-0.35); Eosinophils % (A) 1.9 %; HCT 43.7 % (39.6-50.0); HGB 13.7 g/dL (13.0-17.0); Lymphocytes # (A) 2.16 X 10*3/uL (0.90-5.00); Lymphocytes % (A) 26.7 %; MCH 28.6 pg (27.0-32.0); MCHC 31.4 g/dL (32.0-37.0); MCV 91.2 FL (80.0-97.0); Mean Platelet Volume 9.1 FL (9.5-12.2); Monocytes # (A) 0.61 X 10*3/uL (0.20-1.00); Monocytes % (A) 7.5 %; NRBC Per 100 WBC 0 X 10*3/uL (0.00-0.01); Neutrophils # (A) 5.08 X 10*3/uL (1.80-7.70); Neutrophils % (A) 62.9 %; Platelet Count 336 X 10*3/uL (140-440); RBC 4.79 X 10*6/uL (4.40-5.60); RDW 13.9 % (11.5-14.5); WBC 8.08 X 10*3/uL (4.50-10.00)
[2025-04-02 09:37] LABS: ALT 18 U/L (10-49); AST 23 U/L (14-35); Albumin 4.2 g/dL (3.8-4.9); Albumin/Globulin Ratio 1.17 Ratio (1.60-3.17); Alkaline Phosphatase 118 U/L (41-126); BUN/Creat Ratio 21.38 Ratio (12.00-20.00); Blood Urea Nitrogen 27.8 mg/dL (9.0-27.0); Calcium 9.3 mg/dL (8.7-10.3); Carbon Dioxide 26.6 mmol/L (21.6-31.8); Chloride 102 mmol/L (96-109); Globulin 3.6 g/dL (1.6-3.3); Glucose 144 mg/dL (70-110); Potassium 4.3 mmol/L (3.5-5.5); Sodium 142 mmol/L (135-145); Total Bilirubin 0.6 mg/dL (0.3-1.2); Total Protein 7.8 g/dL (6.2-8.2)
[2025-04-02 11:39] LABS: Glucose,Whole Blood 135 mg/dL (70-110)
--- NOTE | 2025-04-02 11:57 | P.PN ---
Subjective Progress Note Date: 04/02/25 The patient is a 70-year-old male who is currently admitted to the hospital with congestive heart failure. He has been thoroughly diuresed and transitioned back to oral medications. Patient was interviewed and examined. He was up ambulating around the unit with a rolling walker. He denies any shortness of breath and no chest discomfort. GENERAL: Well-appearing, well-nourished and in no acute distress. NECK: Supple without JVD or thyromegaly. LUNGS: Breath sounds diminished to auscultation bilaterally. Respiration equal and unlabored. No wheezes, rales or rhonchi. HEART: Regular rate and rhythm without murmurs, rubs or gallops. S1 and S2 heard. EXTREMITIES: Normal range of motion, no edema. No clubbing or cyanosis. Peripheral pulses intact and strong. TELEMETRY: Paced rhythm LABS: WBC 8.08, hemoglobin 13.7, hematocrit 43.7, platelet 336, sodium 142, potassium 4.3, BUN 27, creatinine 1.3, hemoglobin A1c 6.3, AST 23, ALT 18 IMPRESSION: Acute on chronic HFrEF exacerbation, mild exacerbation. NYHA class III Chronic nonischemic cardiomyopathy with a EF of 20-25%, s/p AICD Persistent atrial fibrillation Bioprosthetic surgical aortic valve placed in December 2021 at [facility] Aortic root aneurysm status post aortic repair Essential hypertension Dyslipidemia Morbid obesity PLAN: Transition back to oral diuretic therapy From a cardiac standpoint patient may be discharged for outpatient follow-up I am dictating on behalf of Dr Sherwin Mccloud's history/physical and assessment/plan. Objective - Vital Signs Vital signs: Vital Signs Temp 98.2 F 04/02/25 07:14 Pulse 74 04/02/25 07:14 Resp 18 04/02/25 07:14 BP 128/81 04/02/25 07:14 Pulse Ox 93 L 04/02/25 07:14 FiO2 Intake & Output 04/01/25 04/02/25 04/02/25 18:59 06:59 18:59 Output Total 500 100 Balance -500 -100 Weight 122.833 kg Output: Urine 500 100 Other: # Voids 3 2 - Labs CBC & Chem 7: 04/02/25 03:37 04/02/25 03:32 Labs: Abnormal Lab Results - Last 24 Hours (Table) 04/01/25 04/01/25 04/01/25 Range/Units 11:15 16:23 20:14 MCHC (32.0-37.0) g/dL MPV (9.5-12.2) FL Anion Gap (4.00-12.00) mmol/L BUN (9.0-27.0) mg/dL Est GFR (CKD-EPI) (>=60) BUN/Creatinine Ratio (12.00-20.00) Ratio Glucose (70-110) mg/dL POC Glucose (mg/dL) 140 H 128 H 127 H (70-110) mg/dL Hemoglobin A1c (<=6.0) % Globulin (1.6-3.3) g/dL Albumin/Globulin Ratio (1.60-3.17) Ratio Urine Glucose (UA) (Negative) 04/02/25 04/02/25 04/02/25 Range/Units 03:32 03:37 03:37 MCHC 31.4 L (32.0-37.0) g/dL MPV 9.1 L (9.5-12.2) FL Anion Gap 13.40 H (4.00-12.00) mmol/L BUN 27.8 H (9.0-27.0) mg/dL Est GFR (CKD-EPI) 59 L (>=60) BUN/Creatinine Ratio 21.38 H (12.00-20.00) Ratio Glucose 144 H (70-110) mg/dL POC Glucose (mg/dL) (70-110) mg/dL Hemoglobin A1c 6.3 H (<=6.0) % Globulin 3.6 H (1.6-3.3) g/dL Albumin/Globulin Ratio 1.17 L (1.60-3.17) Ratio Urine Glucose (UA) (Negative) 04/02/25 04/02/25 Range/Units 05:21 06:03 MCHC (32.0-37.0) g/dL MPV (9.5-12.2) FL Anion Gap (4.00-12.00) mmol/L BUN (9.0-27.0) mg/dL Est GFR (CKD-EPI) (>=60) BUN/Creatinine Ratio (12.00-20.00) Ratio Glucose (70-110) mg/dL POC Glucose (mg/dL) 133 H (70-110) mg/dL Hemoglobin A1c (<=6.0) % Globulin (1.6-3.3) g/dL Albumin/Globulin Ratio (1.60-3.17) Ratio Urine Glucose (UA) 4+ H (Negative)
[2025-04-02 14:50] VITALS: PULSE 63
[2025-04-02 15:25] VITALS: TEMP 97.9
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
[2025-04-02 16:56] LABS: Glucose,Whole Blood 115 mg/dL (70-110)
[2025-04-02 17:34] VITALS: BP 127/79
[2025-04-03] MEDS ORDERED: BUMETANIDE 1 MG TAB PO SCH (09:00)
== END 2025-04-02 18:23 | disposition home or self-care (01) ==
LOC: EC 23:29 → 4SSUR 04-01 03:20
PROVIDERS: ADMIT Internal Medicine; ATTEND Internal Medicine
DX: I11.0 Hypertensive heart disease with heart failure (principal); I50.23 Acute on chronic systolic (congestive) heart failure; I42.8 Other cardiomyopathies; I48.19 Other persistent atrial fibrillation; Q25.43 Congenital aneurysm of aorta; E78.5 Hyperlipidemia, unspecified; I25.10 Atherosclerotic heart disease of native coronary artery without angina pectoris; D64.9 Anemia, unspecified; E11.9 Type 2 diabetes mellitus without complications; K21.9 Gastro-esophageal reflux disease without esophagitis; G47.33 Obstructive sleep apnea (adult) (pediatric); E66.01 Morbid (severe) obesity due to excess calories; Z68.38 Body mass index [BMI] 38.0-38.9, adult; Z95.1 Presence of aortocoronary bypass graft; Z95.2 Presence of prosthetic heart valve; Z95.810 Presence of automatic (implantable) cardiac defibrillator; Z79.899 Other long term (current) drug therapy; Z79.84 Long term (current) use of oral hypoglycemic drugs; Z79.82 Long term (current) use of aspirin; Z79.01 Long term (current) use of anticoagulants; Z82.49 Family history of ischemic heart disease and other diseases of the circulatory system
CPT/HCPCS: 96376 ×2; 96374; 99285; 36415; 93005; 83880; 80053 ×2; 83735; 84484; 85025 ×2; 85610; 85730; 81003; 83036; 71046; 93971; G0378 ×2; J1938 ×2

== ENCOUNTER 2025-04-16 10:46 | Emergency (ER) | payer OTHER, MEDICARE ==
[2025-04-16 10:53] VITALS: TEMP 98.3
[2025-04-16 11:27] LABS: Basophils # (A) 0.04 10*3/uL (0.00-0.10); Basophils % (A) 0.7 %; Eosinophils # (A) 0.11 10*3/uL (0.04-0.35); Eosinophils % (A) 1.9 %; HCT 38.0 % (39.6-50.0); HGB 12.3 g/dL (13.0-17.0); Lymphocytes # (A) 1.58 10*3/uL (0.90-5.00); Lymphocytes % (A) 27.3 %; MCH 28.8 pg (27.0-32.0); MCHC 32.4 g/dL (32.0-37.0); MCV 89.0 fL (80.0-97.0); Monocytes # (A) 0.39 10*3/uL (0.20-1.00); Monocytes % (A) 6.7 %; Neutrophils # (A) 3.66 10*3/uL (1.80-7.70); Neutrophils % (A) 63.2 %; Platelet Count 172 10*3/uL (140-440); RBC 4.27 10*6/uL (4.40-5.60); RDW 13.4 % (11.5-14.5); WBC 5.79 10*3/uL (4.50-10.00)
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
[2025-04-16 11:46] LABS: ALT 16 U/L (4-49); AST 19 U/L (17-59); African American GFR (CKD) 73 (>60 ml/min/1.73 sqM); Albumin 3.9 g/dL (3.5-5.0); Alkaline Phosphatase 102 U/L (38-126); Anion Gap 11 mmol/L; Blood Urea Nitrogen 30 mg/dL (9-20); Calcium 9.4 mg/dL (8.4-10.2); Carbon Dioxide 27 mmol/L (22-30); Chloride 103 mmol/L (98-107); Glucose 136 mg/dL (74-99); Non-African American GFR(CKD) 63 (>60 ml/min/1.73 sqM); Potassium 4.0 mmol/L (3.5-5.1); Sodium 141 mmol/L (137-145); Total Protein 7.0 g/dL (6.3-8.2)
[2025-04-16] MEDS: CLINDAMYCIN 150 MG/ML 4 ML VIAL IM STA (12:55)
[2025-04-16] MEDS: cefTRIAXone IN SWFI 1,000 MG/10 ML SYRINGE IVP STA (12:55)
[2025-04-16 13:14] VITALS: BP 149/94; PULSE 77; RESP 20
== END 2025-04-16 13:14 | disposition home or self-care (01) ==
LOC: EC 10:46
DX: S81.801A Unspecified open wound, right lower leg, initial encounter (principal); Z87.891 Personal history of nicotine dependence; Z88.8 Allergy status to other drugs, medicaments and biological substances; V20.49XA Other motorcycle driver injured in collision with pedestrian or animal in traffic accident, initial encounter
CPT/HCPCS: 36415; 80053; 83605; 85025; 86140; 99283; 96374; 96372; J0696; J0736

== ENCOUNTER 2025-04-18 14:27 | Emergency (ER) | payer OTHER, MEDICARE ==
--- NOTE | 2025-04-18 15:15 | ED ---
General Adult HPI - General Source: patient, RN notes reviewed Mode of arrival: ambulatory Limitations: no limitations <Mayte Peterson - Last Filed: 04/18/25 15:13> - General Source: patient, RN notes reviewed Mode of arrival: ambulatory Limitations: no limitations <Lm Anaya - Last Filed: 04/18/25 18:06> - General Chief complaint: Shortness of Breath Stated complaint: SOB Time Seen by Provider: 04/18/25 14:40 - History of Present Illness Initial comments: Quick [id number] male presenting to the ER with complaints of difficulty in breathing that feels like he is constricted unable to take a brief breath that started this morning. History of pulmonary edema. Denies chest pain, heart palpitations, history of DVT or PE. (Mayte Peterson) Patient is a 70-year-old male presented to the emergency department with difficulty breathing. Onset of symptoms was this morning. Patient does have history of similar symptoms at least 4 times previously associated with fluid in his lungs. Patient does have mild leg edema. No calf pain. No chest pain. No cough or fever (Lm Anaya) - Related Data Home Medications Medication Instructions Recorded Confirmed PARoxetine HCL 30 mg PO DAILY 08/20/16 04/18/25 Cyanocobalamin (Vitamin B-12) 3,000 mcg PO DAILY 11/19/23 04/18/25 [Vitamin B-12] Ubidecarenone [Coenzyme Q10] 200 mg PO DAILY 11/19/23 04/18/25 carvediloL 6.25 mg PO BID-W/MEALS 10/27/24 04/18/25 Ascorbic Acid [Vitamin C] 1,000 mg PO DAILY 03/14/25 04/18/25 Aspirin EC [Ecotrin Low Dose] 81 mg PO DAILY 03/14/25 04/18/25 Apixaban [Eliquis] 5 mg PO BID 03/15/25 04/18/25 Atorvastatin [Lipitor] 10 mg PO HS 03/15/25 04/18/25 Bumetanide [BUMEX] 2 mg PO DAILY 03/15/25 04/18/25 Sacubitril/Valsartan [Entresto 49 1 tab PO BID 03/15/25 04/18/25 mg-51 mg Tablet] Spironolactone [Aldactone] 50 mg PO DAILY 03/15/25 04/18/25 glipiZIDE 5 mg PO BID 03/15/25 04/18/25 Empagliflozin [Jardiance] 25 mg PO DAILY 04/18/25 04/18/25 Previous Rx's Medication Instructions Recorded polyethylene glycoL 3350 [Miralax] 17 gm PO DAILY 30 Days #30 packet 03/16/25 Allergies Allergy/AdvReac Type Severity Reaction Status Date / Time testosterone [From Androderm] [facility] Verified 04/18/25 17:01 Review of Systems ROS Other: All systems not noted in ROS Statement are negative. <Mayte Peterson - Last Filed: 04/18/25 15:13> ROS Other: All systems not noted in ROS Statement are negative. Constitutional: Denies: fever Eyes: Denies: eye pain Respiratory: Reports: as per HPI Cardiovascular: Reports: edema. Denies: chest pain Endocrine: Reports: fatigue <Lm Anaya - Last Filed: 04/18/25 18:06> ROS Statement: Those systems with pertinent positive or pertinent negative responses have been documented in the HPI. Past Medical History Past Medical History: Coronary Artery Disease (CAD), Heart Failure, Diabetes Mellitus, GERD/Reflux, Hyperlipidemia, Hypertension, Pneumonia, Sleep Apnea/CPAP/BIPAP Additional Past Medical History / Comment(s): Aortic stenosis, NIDDM type II, LINDA with Cpap use, bilateral tinnitis, DDD, chronic low back pain, bronchitis. GOUT, History of Any Multi-Drug Resistant Organisms: MRSA Date of last positivie culture/infection: 2024 MDRO Source:: right leg Past Surgical History: Cholecystectomy, Coronary Bypass/CABG, Heart Catheterization, Orthopedic Surgery Additional Past Surgical History / Comment(s): carpal tunnel dave, COLONOSCOPY, open heart to bicuspid valve 2018 Past Anesthesia/Blood Transfusion Reactions: No Reported Reaction Additional Past Anesthesia/Blood Transfusion Reaction / Comment(s): no blood transfusion Past Psychological History: No Psychological Hx Reported Smoking Status: Former smoker Past Alcohol Use History: None Reported Past Drug Use History: None Reported - Past Family History Father Family Medical History: Cancer, Myocardial Infarction ([place]) Mother Family Medical History: Cancer Additional Family Medical History / Comment(s): Mother at 88yrs and pt states it was felt she might have had some form of cancer later in life. <Mayte Peterson - Last Filed: 04/18/25 15:13> General Exam Limitations: no limitations <Mayte Peterson - Last Filed: 04/18/25 15:13> Limitations: no limitations General appearance: alert, in no apparent distress Head exam: Present: normocephalic Eye exam: Present: normal appearance Neck exam: Present: normal inspection Respiratory exam: Present: normal lung sounds bilaterally Cardiovascular Exam: Present: regular rate, normal rhythm GI/Abdominal exam: Present: soft. Absent: tenderness Extremities exam: Present: pedal edema (+1 bilateral). Absent: calf tenderness Neurological exam: Present: alert Psychiatric exam: Present: normal affect, normal mood Skin exam: Present: normal color <Lm Anaya - Last Filed: 04/18/25 18:06> - General Exam Comments Initial Comments: Visual Physical Exam Vital signs reviewed General: Well-appearing, nontoxic, no acute distress. Head: Normocephalic, atraumatic Eyes: PERRLA, EOMI ENT: Airway patent Chest: Nonlabored breathing Skin: No visual rash, normal skin tone Neuro: Alert and oriented 3 Musculoskeletal: No gross abnormalities (Mayte Peterson) Course Vital Signs 04/18/25 04/18/25 14:30 16:52 Temperature 98.0 F Pulse Rate 87 84 Respiratory 16 16 Rate Blood Pressure 153/86 130/87 O2 Sat by Pulse 98 100 Oximetry EKG Findings - EKG Results: EKG: interpreted by ERMD (Paced rhythm with a rate of 86. Left axis. Wide- complex QRS. Nonspecific T wave) <Lm Anaya - Last Filed: 04/18/25 18:06> Medical Decision Making <Mayte Peterson - Last Filed: 04/18/25 15:13> - Lab Data Result diagrams: 04/18/25 15:14 04/18/25 15:14 <Lm Anaya - Last Filed: 04/18/25 18:06> - Medical Decision Making I completed the quick note portion of this chart signed Mayte Peterson PA-C (Mayte Peterson) Was pt. sent in by a medical professional or institution (DESHAWN Cohen, HOME ENERGY INSPECTOR, urgent care, hospital, or penitentiary...) When possible be specific @ -No Did you speak to anyone other than the patient for history (EMS, parent, family, police, friend...)? What history was obtained from this source @ -No Did you review nursing and triage notes (agree or disagree)? Why? @ -I reviewed and agree with nursing and triage notes Were old charts reviewed (outside hosp., previous admission, EMS record, old EKG, old radiological studies, urgent care reports/EKG's, penitentiary records)? Report findings @ -Previous CT scans reviewed negative for pulmonary embolism Differential Diagnosis (chest pain, altered mental status, abdominal pain women, abdominal pain men, vaginal bleeding, weakness, fever, dyspnea, syncope, headache, dizziness, GI bleed, back pain, seizure, CVA, palpatations, mental health, musculoskeletal)? @ -Differential Dyspnea: Coronary syndrome, arrhythmia, tamponade, asthma, COPD, pulmonary embolism, pneumonia, pneumothorax, pulmonary effusion, anaphylaxis, diabetic ketoacidosis, flailed chest, pulmonary contusion, diaphragmatic rupture, anemia, neuromuscular, this is not meant to be an all-inclusive list. EKG interpreted by me (3pts min.). @ -As above X-rays interpreted by me (1pt min.). @ -Chest x-ray without acute abnormality CT interpreted by me (1pt min.). @ -None done U/S interpreted by me (1pt. min.). @ -None done What testing was considered but not performed or refused? (CT, X-rays, U/S, labs)? Why? @ -Considered ordering D-dimer however patient has had this test elevated recently twice this year, last a few weeks ago with similar symptoms and nega tive CT scan of the chest. What meds were considered but not given or refused? Why? @ -None Did you discuss the management of the patient with other professionals (professionals i.e. , PA, HOME ENERGY INSPECTOR, lab, RT, psych nurse, social insurance analyst, satellite television installer, teacher, major gifts officer, therapeutic case manager)? Give summary @ -No Was smoking cessation discussed for >3mins.? @ -No Was critical care preformed (if so, how long)? @ -No Were there social determinants of health that impacted care today? How? (Homelessness, low income, unemployed, alcoholism, drug addiction, transportation, low edu. Level, literacy, decrease access to med. care, alf, rehab)? @ -No Was there de-escalation of care discussed even if they declined (Discuss DNR or withdrawal of care, Hospice)? DNR status @ -No What co-morbidities impacted this encounter? (DM, HTN, Smoking, COPD, CAD, Cancer, CVA, ARF, Chemo, Hep., AIDS, mental health diagnosis, sleep apnea, morbid obesity)? @ -CHF history Was patient admitted / discharged? Hospital course, mention meds given and route, prescriptions, significant lab abnormalities, going to OR and other pertinent info. @ -Patient presents with dyspnea. Evaluation unremarkable. On reevaluation after Lasix patient feels significantly better. No longer having dyspnea and would like to be discharged home. Patient is updated on results. Discussion with patient at this time regarding potential further evaluation however patient refuses. Patient does not want to have D-dimer test or CT scan done as he feels better and would like to go home. Patient advised close follow-up with his regular doctor and security systems technician Undiagnosed new problem with uncertain prognosis? @ -No Drug Therapy requiring intensive monitoring for toxicity (Heparin, Nitro, Insulin, Cardizem)? @ -No Were any procedures done? @ -No Diagnosis/symptom? @ -Dyspnea Acute, or Chronic, or Acute on Chronic? @ -Acute Uncomplicated (without systemic symptoms) or Complicated (systemic symptoms)? @ -Default Side effects of treatment? @ -No Exacerbation, Progression, or Severe Exacerbation? @ -No Poses a threat to life or bodily function? How? (Chest pain, [place], [place], pneumonia, PE, COPD, DKA, ARF, appy, cholecystitis, CVA, Diverticulitis, Homicidal, Suicidal, threat to staff... and all critical care pts) @ -No (Lm Anaya) - Lab Data Lab Results 04/18/25 04/18/25 04/18/25 Range/Units 15:14 15:14 15:14 WBC 7.79 (4.50-10.00) 10*3/uL RBC 4.37 L (4.40-5.60) 10*6/uL Hgb 12.7 L (13.0-17.0) g/dL Hct 38.5 L (39.6-50.0) % MCV 88.1 (80.0-97.0) fL MCH 29.1 (27.0-32.0) pg MCHC 33.0 (32.0-37.0) g/dL Plt Count 176 (140-440) 10*3/uL MPV 9.1 L (9.5-12.2) fL Immature Gran % (Auto) 0.3 % Neutrophils % 62.3 % Lymphocytes % 28.5 % Monocytes % 6.9 % Eosinophils % 1.5 % Basophils % 0.5 % Immature Gran # 0.02 (0.00-0.04) 10*3/uL Neutrophils # 4.85 (1.80-7.70) 10*3/uL Lymphocytes # 2.22 (0.90-5.00) 10*3/uL Monocytes # 0.54 (0.20-1.00) 10*3/uL Eosinophils # 0.12 (0.04-0.35) 10*3/uL Basophils # 0.04 (0.00-0.10) 10*3/uL PT 11.3 (10.0-12.5) sec INR 1.0 (<1.2) APTT 22.6 (22.0-30.0) sec Sodium 139 (137-145) mmol/L Potassium 4.0 (3.5-5.1) mmol/L Chloride 104 (98-107) mmol/L Carbon Dioxide 25 (22-30) mmol/L Anion Gap 10 mmol/L BUN 28 H (9-20) mg/dL Creatinine 1.25 (0.66-1.25) mg/dL Est GFR (CKD-EPI)AfAm 68 (>60 ml/min/1.73 sqM) Est GFR (CKD-EPI)NonAf 59 (>60 ml/min/1.73 sqM) Glucose 124 H (74-99) mg/dL Calcium 9.2 (8.4-10.2) mg/dL Magnesium 1.9 (1.6-2.3) mg/dL Total Bilirubin 0.8 (0.2-1.3) mg/dL AST 23 (17-59) U/L ALT 18 (4-49) U/L Alkaline Phosphatase 103 (38-126) U/L Troponin I (0.000-0.034) ng/mL NT-Pro-B Natriuret Pep 2410 pg/mL Total Protein 7.4 (6.3-8.2) g/dL Albumin 4.3 (3.5-5.0) g/dL 04/18/25 Range/Units 15:14 WBC (4.50-10.00) 10*3/uL RBC (4.40-5.60) 10*6/uL Hgb (13.0-17.0) g/dL Hct (39.6-50.0) % MCV (80.0-97.0) fL MCH (27.0-32.0) pg MCHC (32.0-37.0) g/dL Plt Count (140-440) 10*3/uL MPV (9.5-12.2) fL Immature Gran % (Auto) % Neutrophils % % Lymphocytes % % Monocytes % % Eosinophils % % Basophils % % Immature Gran # (0.00-0.04) 10*3/uL Neutrophils # (1.80-7.70) 10*3/uL Lymphocytes # (0.90-5.00) 10*3/uL Monocytes # (0.20-1.00) 10*3/uL Eosinophils # (0.04-0.35) 10*3/uL Basophils # (0.00-0.10) 10*3/uL PT (10.0-12.5) sec INR (<1.2) APTT (22.0-30.0) sec Sodium (137-145) mmol/L Potassium (3.5-5.1) mmol/L Chloride (98-107) mmol/L Carbon Dioxide (22-30) mmol/L Anion Gap mmol/L BUN (9-20) mg/dL Creatinine (0.66-1.25) mg/dL Est GFR (CKD-EPI)AfAm (>60 ml/min/1.73 sqM) Est GFR (CKD-EPI)NonAf (>60 ml/min/1.73 sqM) Glucose (74-99) mg/dL Calcium (8.4-10.2) mg/dL Magnesium (1.6-2.3) mg/dL Total Bilirubin (0.2-1.3) mg/dL AST (17-59) U/L ALT (4-49) U/L Alkaline Phosphatase (38-126) U/L Troponin I 0.014 (0.000-0.034) ng/mL NT-Pro-B Natriuret Pep pg/mL Total Protein (6.3-8.2) g/dL Albumin (3.5-5.0) g/dL Disposition <Mayte Peterson - Last Filed: 04/18/25 15:13> Is patient prescribed a controlled substance at d/c from ED?: No Time of Disposition: 18:06 <Lm Anaya - Last Filed: 04/18/25 18:06> Clinical Impression: Dyspnea Disposition: HOME SELF-CARE Condition: Stable Instructions (If sedation given, give patient instructions): Heart Failure (ER) Additional Instructions: Please do follow-up with your primary care physician and security systems technician in the next couple of days for recheck. Return for difficulty breathing, chest pain, fevers, leg pain or swelling, worsening symptoms or other concerns. Referrals: Suraj Dumont DO [Primary Care Provider] - 1-2 days
--- NOTE | 2025-04-18 16:00 | XR ---
EXAMINATION TYPE: XR chest 2V DATE OF EXAM: 04/18/2025 3:48 PM COMPARISON: 04/01/2025 CLINICAL INDICATION: Male, 70 years old with history of GEO, shortness of breath TECHNIQUE: PA and lateral views FINDINGS: Left anterior chest wall ICD generator with right atrial and 2 right ventricular leads. Median sterno randi wires and prosthetic aortic valve. Heart mildly enlarged. Mild interstitial prominence is a wedding day coordinator durga appearance. Some strandy atelectasis at the right base. No consolidation or pleural effusion. Ext ensive DISH within the thoracic spine. IMPRESSION: Mild cardiomegaly. Some strandy atelectasis at the right base. No definite acute process. [facility], , 04/18/2025 3:58 PM
[2025-04-18] MEDS: FUROSEMIDE 10 MG/ML 4 ML VIAL IV STA (16:53)
[2025-04-18 16:56] LABS: Basophils # (A) 0.04 10*3/uL (0.00-0.10); Basophils % (A) 0.5 %; Eosinophils # (A) 0.12 10*3/uL (0.04-0.35); Eosinophils % (A) 1.5 %; HCT 38.5 % (39.6-50.0); HGB 12.7 g/dL (13.0-17.0); Lymphocytes # (A) 2.22 10*3/uL (0.90-5.00); Lymphocytes % (A) 28.5 %; MCH 29.1 pg (27.0-32.0); MCHC 33.0 g/dL (32.0-37.0); MCV 88.1 fL (80.0-97.0); Monocytes # (A) 0.54 10*3/uL (0.20-1.00); Monocytes % (A) 6.9 %; Neutrophils # (A) 4.85 10*3/uL (1.80-7.70); Neutrophils % (A) 62.3 %; Platelet Count 176 10*3/uL (140-440); RBC 4.37 10*6/uL (4.40-5.60); RDW 13.3 % (11.5-14.5); WBC 7.79 10*3/uL (4.50-10.00)
[2025-04-18 17:09] LABS: ALT 18 U/L (4-49); AST 23 U/L (17-59); African American GFR (CKD) 68 (>60 ml/min/1.73 sqM); Albumin 4.3 g/dL (3.5-5.0); Alkaline Phosphatase 103 U/L (38-126); Anion Gap 10 mmol/L; Blood Urea Nitrogen 28 mg/dL (9-20); Calcium 9.2 mg/dL (8.4-10.2); Carbon Dioxide 25 mmol/L (22-30); Chloride 104 mmol/L (98-107); Glucose 124 mg/dL (74-99); Magnesium 1.9 mg/dL (1.6-2.3); Non-African American GFR(CKD) 59 (>60 ml/min/1.73 sqM); Potassium 4.0 mmol/L (3.5-5.1); Sodium 139 mmol/L (137-145); Total Protein 7.4 g/dL (6.3-8.2)
[2025-04-18 17:17] LABS: NT-Pro-B-Type Natriuretic Pept 2410 pg/mL
[2025-04-18 17:23] LABS: INR 1.0 (<1.2); Partial Thromboplastin Time 22.6 sec (22.0-30.0); Prothrombin Time 11.3 sec (10.0-12.5)
[2025-04-18 18:35] VITALS: BP 143/72; PULSE 79; RESP 20; TEMP 98.2
== END 2025-04-18 18:34 | disposition home or self-care (01) ==
LOC: EC 14:27
DX: R06.00 Dyspnea, unspecified (principal); I50.9 Heart failure, unspecified; Z87.891 Personal history of nicotine dependence; Z88.8 Allergy status to other drugs, medicaments and biological substances
CPT/HCPCS: 36415; 93005; 83880; 80053; 83735; 84484; 85025; 85610; 85730; 71046; 99285; 96374; J1938

== ENCOUNTER 2025-04-22 19:48 | Observation (INO) | payer OTHER, MEDICARE ==
--- NOTE | 2025-04-22 20:26 | ED ---
Chest Pain HPI - General Chief Complaint: Chest Pain Stated Complaint: Chest Pain, SOB Time Seen by Provider: 04/22/25 20:03 Source: patient Mode of arrival: ambulatory Limitations: no limitations - History of Present Illness Initial Comments: 70-year-old male presenting with chief complaint of shortness of breath. Has been increasing over the past few days, started getting worse about an hour ago. He does have some sharp left-sided chest pain as well. He has been seen here on multiple occasions recently for shortness of breath which he attributes to his pulmonary edema. He denies any dramatic increase in lower extremity swelling. He is currently being treated for cellulitis due to MRSA on the right knee. No abdominal pain nausea or vomiting. Admits to cough. No fever. - Related Data Home Medications Medication Instructions Recorded Confirmed PARoxetine HCL 30 mg PO DAILY 08/20/16 04/18/25 Cyanocobalamin (Vitamin B-12) 3,000 mcg PO DAILY 11/19/23 04/18/25 [Vitamin B-12] Ubidecarenone [Coenzyme Q10] 200 mg PO DAILY 11/19/23 04/18/25 carvediloL 6.25 mg PO BID-W/MEALS 10/27/24 04/18/25 Ascorbic Acid [Vitamin C] 1,000 mg PO DAILY 03/14/25 04/18/25 Aspirin EC [Ecotrin Low Dose] 81 mg PO DAILY 03/14/25 04/18/25 Apixaban [Eliquis] 5 mg PO BID 03/15/25 04/18/25 Atorvastatin [Lipitor] 10 mg PO HS 03/15/25 04/18/25 Bumetanide [BUMEX] 2 mg PO DAILY 03/15/25 04/18/25 Sacubitril/Valsartan [Entresto 49 1 tab PO BID 03/15/25 04/18/25 mg-51 mg Tablet] Spironolactone [Aldactone] 50 mg PO DAILY 03/15/25 04/18/25 glipiZIDE 5 mg PO BID 03/15/25 04/18/25 Empagliflozin [Jardiance] 25 mg PO DAILY 04/18/25 04/18/25 Previous Rx's Medication Instructions Recorded polyethylene glycoL 3350 [Miralax] 17 gm PO DAILY 30 Days #30 packet 03/16/25 Allergies Allergy/AdvReac Type Severity Reaction Status Date / Time testosterone [From Androderm] Allergy Per [facility] Verified 04/22/25 19:53 Review of Systems ROS Statement: Those systems with pertinent positive or pertinent negative responses have been documented in the HPI. ROS Other: All systems not noted in ROS Statement are negative. Past Medical History Past Medical History: Coronary Artery Disease (CAD), Heart Failure, Diabetes Mellitus, GERD/Reflux, Hyperlipidemia, Hypertension, Pneumonia, Sleep Apnea/CPAP/BIPAP Additional Past Medical History / Comment(s): Aortic stenosis, NIDDM type II, LINDA with Cpap use, bilateral tinnitis, DDD, chronic low back pain, bronchitis. GOUT, History of Any Multi-Drug Resistant Organisms: MRSA Date of last positivie culture/infection: 2024 MDRO Source:: right leg Past Surgical History: Cholecystectomy, Coronary Bypass/CABG, Heart Catheterization, Orthopedic Surgery Additional Past Surgical History / Comment(s): carpal tunnel dave, COLONOSCOPY, open heart to bicuspid valve 2018 Past Anesthesia/Blood Transfusion Reactions: No Reported Reaction Additional Past Anesthesia/Blood Transfusion Reaction / Comment(s): no blood transfusion Past Psychological History: No Psychological Hx Reported Smoking Status: Former smoker Past Alcohol Use History: None Reported Past Drug Use History: None Reported - Past Family History Father Family Medical History: Cancer, Myocardial Infarction ([place]) Mother Family Medical History: Cancer Additional Family Medical History / Comment(s): Mother at 88yrs and pt states it was felt she might have had some form of cancer later in life. General Exam Limitations: no limitations General appearance: alert, in no apparent distress Head exam: Present: atraumatic, normocephalic, normal inspection Eye exam: Present: normal appearance, EOMI Neck exam: Present: normal inspection. Absent: meningismus Respiratory exam: Present: normal lung sounds bilaterally. Absent: respiratory distress, wheezes, rales, rhonchi, stridor Cardiovascular Exam: Present: regular rate, normal rhythm, normal heart sounds. Absent: systolic murmur, diastolic murmur, rubs, gallop, clicks Extremities exam: Present: pedal edema (mild) Neurological exam: Present: alert, oriented X3 Psychiatric exam: Present: normal affect, normal mood Skin exam: Present: warm, dry, normal color Course Vital Signs 04/22/25 04/22/25 19:49 23:09 Temperature 97.9 F Pulse Rate 88 68 Respiratory 15 18 Rate Blood Pressure 145/82 138/83 O2 Sat by Pulse 98 Oximetry Chest Pain MDM - [facility] EKG shows electronic ventricular pacemaker ventricular rate 94. RI interval 189 QRS 142 QT 384 QTc 436 Was pt. sent in by a medical professional or institution (, DESHAWN, TEXT TRANSCRIBER, urgent ca re, hospital, or long-term...) When possible be specific @ -No Did you speak to anyone other than the patient for history (EMS, parent, family, police, friend...)? What history was obtained from this source @ -No Did you review nursing and triage notes (agree or disagree)? Why? @ -I reviewed and agree with nursing and triage notes Were old charts reviewed (outside hosp., previous admission, EMS record, old EKG, old radiological studies, urgent care reports/EKG's, long-term records)? Report findings @ -No old charts were reviewed Differential Diagnosis (chest pain, altered mental status, abdominal pain women, abdominal pain men, vaginal bleeding, weakness, fever, dyspnea, syncope, headache, dizziness, GI bleed, back pain, seizure, CVA, palpatations, mental health, musculoskeletal)? @ -[facility] Differential Dyspnea: Coronary syndrome, arrhythmia, tamponade, asthma, COPD, pulmonary embolism, pneumonia, pneumothorax, pulmonary effusion, anaphylaxis, diabetic ketoacidosis, flailed chest, pulmonary contusion, diaphragmatic rupture, anemia, neuromuscular… this is not meant to be an all-inclusive list. EKG interpreted by me (3pts min.). @ -As above X-rays interpreted by me (1pt min.). @ -Chest x-ray shows no acute process CT interpreted by me (1pt min.). @ -CTA shows no evidence of pulmonary embolism. Hepatic steatosis. Colonic diverticulosis U/S interpreted by me (1pt. min.). @ -None done What testing was considered but not performed or refused? (CT, X-rays, U/S, labs)? Why? @ -None What meds were considered but not given or refused? Why? @ -None Did you discuss the management of the patient with other professionals (professionals i.e. DESHAWN Cohen, TEXT TRANSCRIBER, lab, RT, psych nurse, social media coordinator, shorer, teacher, corporate banking officer, supervisor case loading)? Give summary @ -Spoke with Dr. Negrete who accepts admission Was smoking cessation discussed for >3mins.? @ -No Was critical care preformed (if so, how long)? @ -No Were there social determinants of health that impacted care today? How? (Homelessness, low income, unemployed, alcoholism, drug addiction, transportation, low edu. Level, literacy, decrease access to med. care, skilled nursing, rehab)? @ -No Was there de-escalation of care discussed even if they declined (Discuss DNR or withdrawal of care, Hospice)? DNR status @ -No What co-morbidities impacted this encounter? (DM, HTN, Smoking, COPD, CAD, Cancer, CVA, ARF, Chemo, Hep., AIDS, mental health diagnosis, sleep apnea, morbid obesity)? @ -None Was patient admitted / discharged? Hospital course, mention meds given and route, prescriptions, significant lab abnormalities, going to OR and other pertinent info. @ -70-year-old male presenting with chief complaint of difficulty breathing and chest tightness. History of CAD, diabetes, CHF. Troponin is negative. BNP 839 chest x-ray shows no acute process. D-dimer was 3.33 and CTA is negative for acute pulmonary embolism. Patient has a heart score of 6. We will admit him for cardiac observation. He is agreeable with this plan. I discussed this case with my attending Dr. Camejo Undiagnosed new problem with uncertain prognosis? @ -No Drug Therapy requiring intensive monitoring for toxicity (Heparin, Nitro, Insulin, Cardizem)? @ -No Were any procedures done? @ -No Diagnosis/symptom? @ -Chest pain, shortness of breath Acute, or Chronic, or Acute on Chronic? @ -Acute Uncomplicated (without systemic symptoms) or Complicated (systemic symptoms)? @ -Complicated Side effects of treatment? @ -No Exacerbation, Progression, or Severe Exacerbation? @ -No Poses a threat to life or bodily function? How? (Chest pain, [place], [place], pneumonia, PE, COPD, DKA, ARF, appy, cholecystitis, CVA, Diverticulitis, Homicidal, Suicidal, threat to staff... and all critical care pts) @ -Potential Disposition Clinical Impression: Chest pain Disposition: ADMITTED IP TO THIS [facility] Condition: Fair Time of Disposition: 22:47
[2025-04-22 20:31] LABS: Basophils # (A) 0.02 10*3/uL (0.00-0.10); Basophils % (A) 0.2 %; Eosinophils # (A) 0.09 10*3/uL (0.04-0.35); Eosinophils % (A) 1.0 %; HCT 43.7 % (39.6-50.0); HGB 14.5 g/dL (13.0-17.0); Lymphocytes # (A) 2.52 10*3/uL (0.90-5.00); Lymphocytes % (A) 29.3 %; MCH 28.9 pg (27.0-32.0); MCHC 33.2 g/dL (32.0-37.0); MCV 87.1 fL (80.0-97.0); Monocytes # (A) 0.33 10*3/uL (0.20-1.00); Monocytes % (A) 3.8 %; Neutrophils # (A) 5.62 10*3/uL (1.80-7.70); Neutrophils % (A) 65.5 %; Platelet Count 205 10*3/uL (140-440); RBC 5.02 10*6/uL (4.40-5.60); RDW 13.7 % (11.5-14.5); WBC 8.60 10*3/uL (4.50-10.00)
[2025-04-22 20:43] LABS: ALT 18 U/L (4-49); AST 21 U/L (17-59); African American GFR (CKD) 66 (>60 ml/min/1.73 sqM); Albumin 4.7 g/dL (3.5-5.0); Alkaline Phosphatase 114 U/L (38-126); Anion Gap 12 mmol/L; Blood Urea Nitrogen 33 mg/dL (9-20); Calcium 9.5 mg/dL (8.4-10.2); Carbon Dioxide 24 mmol/L (22-30); Chloride 105 mmol/L (98-107); Glucose 176 mg/dL (74-99); Magnesium 2.1 mg/dL (1.6-2.3); Non-African American GFR(CKD) 57 (>60 ml/min/1.73 sqM); Potassium 4.0 mmol/L (3.5-5.1); Sodium 141 mmol/L (137-145); Total Protein 8.0 g/dL (6.3-8.2)
--- NOTE | 2025-04-22 20:43 | XR ---
EXAMINATION TYPE: XR chest 2V DATE OF EXAM: 04/22/2025 8:40 PM COMPARISON: Chest radiographs from 04/18/2025 CLINICAL INDICATION: Male, 70 years old with history of difficulty breathing; [facility] TECHNIQUE: XR chest 2V Frontal and lateral views of the chest. FINDINGS: Lungs/Pleura: There is no evidence of pleural effusion, focal consolidation, or pneumothorax. Pulmonary vascularity: Unremarkable. Heart/mediastinum: Cardiomediastinal silhouette is unremarkable. Atherosclerotic calcifications are seen in the aorta. Three lead cardiac conduction device overlying the left hemithorax with lead tips projecting over the right ventricle, right atrium and coronary sinus. Musculoskeletal: No acute osseous pathology. Other findings: None IMPRESSION: No acute cardiopulmonary disease/process. [facility], , 04/22/2025 8:40 PM
[2025-04-22 20:47] LABS: INR 1.2 (<1.2); Partial Thromboplastin Time 25.0 sec (22.0-30.0); Prothrombin Time 12.7 sec (10.0-12.5)
[2025-04-22 20:52] LABS: NT-Pro-B-Type Natriuretic Pept 839 pg/mL
[2025-04-22] MEDS: FUROSEMIDE 10 MG/ML 4 ML VIAL IV STA (21:45)
[2025-04-22] MEDS: LORazepam 1 MG/0.5 ML VIAL IV STA (21:46)
--- NOTE | 2025-04-22 22:01 | CT ---
EXAMINATION TYPE: CT chest angio for PE DATE OF EXAM: 04/22/2025 9:31 PM COMPARISON: Chest radiograph from same day. CTs of the chest with most recent 03/29/2025. CLINICAL INDICATION: Male, 70 years old with history of SOB; Increased shortness of breath over the l ast few days. Pt also complains of sharp aching chest pain on left side of chest. TECHNIQUE/CONTRAST: CTA scan of the thorax is performed with IV Contrast, patient injected with 80ml mL of Isovue 370, IA P images are created and reviewed these are created on a separate workstation.. CT DLP: 1182.8 mGycm, Automated exposure control for dose reduction was used. FINDINGS: Lungs/Pleura: No evidence of focal consolidation, pleural effusion or pneumothorax. Airway: Large airways are patent. Heart: Heart is mildly enlarged for size. Hepatic valve repair changes. Cardiac conduction instrument right ventricle and atrium. No significant coronary artery calcifications. Vasculature: There is no evidence for a filling defect within the pulmonary vasculature to suggest ac lizbet pulmonary embolism. The pulmonary artery is of normal size. Mediastinum: No gross evidence of adenopathy. Musculoskeletal: Severe disc degeneration changes are present throughout the thoracolumbar spine seco ndary to osteophyte formation and facet joint arthropathy. Severe degeneration changes of the spine. Sternotomy wires are present. Soft Tissues/lymph nodes: Unremarkable. Lower neck: No significant findings. Upper Abdomen: Right upper quadrant cholecystectomy clips. Scattered colonic diverticula. IMPRESSION: 1. No evidence of pulmonary embolism. 2. Hepatic steatosis. 3. Colonic diverticulosis. 4. Follow up recommendations for incidental pulmonary nodules, if there are any, are per [employer] or [employer]. [email or web address]://radiopaedia.org/articles/ofnfikynrj-[email or web address]?lang=[email or web address] [facility], , 04/22/2025 9:58 PM
[2025-04-22] MEDS ORDERED: NALOXONE 0.4 MG/ML 1 ML VIAL IV PRN (22:45)
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
[2025-04-23] MEDS: ORPHENADRINE 30 MG/ML 2 ML VIAL IVP STA (00:23)
[2025-04-23] MEDS ORDERED: DEXTROSE 50% SYRINGE 50 ML IVP PRN ×4 (01:34→01:36)
[2025-04-23 07:57] VITALS: TEMP 97.6
[2025-04-23] MEDS: CYANOCOBALAMIN 500 MCG TAB PO SCH (09:00)
[2025-04-23] MEDS: SPIRONOLACTONE 25 MG TAB PO SCH (09:00)
[2025-04-23] MEDS: BUMETANIDE 0.25 MG/ML 10 ML VIAL IV SCH (09:00)
[2025-04-23] MEDS: ASPIRIN 81 MG PO SCH (09:00)
[2025-04-23] MEDS: APIXABAN 5 MG TAB PO SCH (09:00)
[2025-04-23] MEDS: SACUBITRIL/VALSARTAN 49 MG-51 MG TABLET PO SCH (09:01)
[2025-04-23 09:57] LABS: African American GFR (CKD) 70 (>60 ml/min/1.73 sqM); Anion Gap 10 mmol/L; Blood Urea Nitrogen 32 mg/dL (9-20); Calcium 9.6 mg/dL (8.4-10.2); Carbon Dioxide 28 mmol/L (22-30); Chloride 107 mmol/L (98-107); Glucose 114 mg/dL (74-99); Non-African American GFR(CKD) 61 (>60 ml/min/1.73 sqM); Potassium 4.1 mmol/L (3.5-5.1); Sodium 145 mmol/L (137-145)
[2025-04-23 10:35] VITALS: RESP 18
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
[2025-04-23] MEDS: PARoxetine 10 MG TAB PO SCH (11:47)
[2025-04-23 12:49] LABS: Glucose,Whole Blood 134 mg/dL (70-110)
[2025-04-23] MEDS: glipiZIDE 5 MG TAB PO SCH (12:57)
[2025-04-23] MEDS: DAPAGLIFLOZIN PROPANEDIOL 10 MG TABLET PO SCH (12:57)
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
[2025-04-23 13:44] VITALS: BP 121/73; PULSE 76
[2025-04-23] MEDS ORDERED: ATORVASTATIN 10 MG TAB PO SCH (21:00)
[2025-04-24] MEDS ORDERED: BUMETANIDE 1 MG TAB PO SCH (09:00)
== END 2025-04-23 15:38 | disposition home or self-care (01) ==
LOC: EC 19:48 → 6NMEDSUR 22:32
PROVIDERS: ADMIT Internal Medicine; ATTEND Internal Medicine
DX: R06.02 Shortness of breath (principal); E66.812 Obesity, class 2; L03.115 Cellulitis of right lower limb; B95.62 Methicillin resistant Staphylococcus aureus infection as the cause of diseases classified elsewhere; I11.0 Hypertensive heart disease with heart failure; I50.23 Acute on chronic systolic (congestive) heart failure; I25.10 Atherosclerotic heart disease of native coronary artery without angina pectoris; I27.20 Pulmonary hypertension, unspecified; I42.8 Other cardiomyopathies; I48.0 Paroxysmal atrial fibrillation; E78.5 Hyperlipidemia, unspecified; G47.33 Obstructive sleep apnea (adult) (pediatric); G89.29 Other chronic pain; K21.9 Gastro-esophageal reflux disease without esophagitis; M10.9 Gout, unspecified; M54.50 Low back pain, unspecified; Z68.38 Body mass index [BMI] 38.0-38.9, adult; Z79.01 Long term (current) use of anticoagulants; Z79.82 Long term (current) use of aspirin; Z79.899 Other long term (current) drug therapy; Z79.84 Long term (current) use of oral hypoglycemic drugs; Z95.1 Presence of aortocoronary bypass graft; Z95.2 Presence of prosthetic heart valve; Z95.810 Presence of automatic (implantable) cardiac defibrillator
CPT/HCPCS: 96375 ×3; 96374; 99285; 36415; 94760; 93005; 85379; 83880; 80053; 80048; 83605; 83735; 84484 ×2; 85025; 85610; 85730; 71046; 71275; G0378 ×2; J2060; J2360; Q9967; J1939; J1938

== ENCOUNTER 2025-04-28 16:31 | Observation (INO) | payer OTHER, MEDICARE ==
[2025-04-28 16:37] LABS: Glucose,Whole Blood 112 mg/dL (70-110)
--- NOTE | 2025-04-28 16:41 | ED ---
General Adult HPI - General Stated complaint: Chest Pain/AMS Time Seen by Provider: 04/28/25 16:35 Source: patient, RN notes reviewed, old records reviewed - History of Present Illness Initial comments: This is a 70-year-old male who presents to the emergency department unable to give any history. According to EMS the patient went to a chiropractor today and shortly thereafter he started having chest pain and then a little time passed and he started to have slurred speech and then expressive aphasia and then some left-sided facial droop. On arrival patient is unable give us any history still. Patient is unable to follow simple commands patient does not appear to have any facial drooping currently. Unable to determine if patient still having any facial droop because he is unable to speak to us at all and unable to follow any commands - Related Data Home Medications Medication Instructions Recorded Confirmed PARoxetine HCL 30 mg PO DAILY 08/20/16 04/28/25 Cyanocobalamin (Vitamin B-12) 3,000 mcg PO DAILY 11/19/23 04/28/25 [Vitamin B-12] Ubidecarenone [Coenzyme Q10] 200 mg PO DAILY 11/19/23 04/28/25 carvediloL 6.25 mg PO BID-W/MEALS 10/27/24 04/28/25 Ascorbic Acid [Vitamin C] 1,000 mg PO DAILY 03/14/25 04/28/25 Aspirin EC [Ecotrin Low Dose] 81 mg PO DAILY 03/14/25 04/28/25 Apixaban [Eliquis] 5 mg PO BID 03/15/25 04/28/25 Atorvastatin [Lipitor] 10 mg PO HS 03/15/25 04/28/25 Bumetanide [BUMEX] 2 mg PO DAILY 03/15/25 04/28/25 Sacubitril/Valsartan [Entresto 49 1 tab PO BID 03/15/25 04/28/25 mg-51 mg Tablet] Spironolactone [Aldactone] 50 mg PO DAILY 03/15/25 04/28/25 glipiZIDE 5 mg PO BID 03/15/25 04/28/25 Empagliflozin [Jardiance] 25 mg PO DAILY 04/18/25 04/28/25 Previous Rx's Medication Instructions Recorded polyethylene glycoL 3350 [Miralax] 17 gm PO DAILY 30 Days #30 packet 03/16/25 Allergies Allergy/AdvReac Type Severity Reaction Status Date / Time testosterone [From Androderm] Allergy Per [facility] Verified 04/28/25 18:09 Review of Systems ROS Statement: Those systems with pertinent positive or pertinent negative responses have been documented in the HPI. ROS Other: All systems not noted in ROS Statement are negative. Past Medical History Past Medical History: Coronary Artery Disease (CAD), Heart Failure, Diabetes Mellitus, GERD/Reflux, Hyperlipidemia, Hypertension, Pneumonia, Sleep Apnea/CPAP/BIPAP Additional Past Medical History / Comment(s): Aortic stenosis, NIDDM type II, LINDA with Cpap use, bilateral tinnitis, DDD, chronic low back pain, bronchitis, gout History of Any Multi-Drug Resistant Organisms: MRSA Date of last positivie culture/infection: 2024 MDRO Source:: right leg Past Surgical History: Cholecystectomy, Coronary Bypass/CABG, Heart Catheterization, Orthopedic Surgery Additional Past Surgical History / Comment(s): carpal tunnel dave, COLONOSCOPY, open heart to bicuspid valve 2018 Past Anesthesia/Blood Transfusion Reactions: No Reported Reaction Additional Past Anesthesia/Blood Transfusion Reaction / Comment(s): no blood t ransfusion Past Psychological History: No Psychological Hx Reported Additional Psychological History / Comment(s): Pt lives with a son. He has a Cpap, glucometer and life vest. He is retired from the [employer] and the [employer]. Smoking Status: Former smoker Past Alcohol Use History: None Reported Additional Past Alcohol Use History / Comment(s): smokes occ cigars. started in his 50's Past Drug Use History: None Reported - Past Family History Father Family Medical History: Cancer, Myocardial Infarction (CO) Mother Family Medical History: Cancer Additional Family Medical History / Comment(s): Mother at 88yrs and pt states it was felt she might have had some form of cancer later in life. General Exam - General Exam Comments Initial Comments: GENERAL: Patient is well-developed and well-nourished. Patient is nontoxic and well- hydrated and is in mild distress. ENT: Neck is soft and supple. No significant lymphadenopathy is noted. Oropharynx is clear. Moist mucous membranes. Neck has full range of motion without eliciting any pain. EYES: The sclera were anicteric and conjunctiva were pink and moist. Extraocular movements were intact and pupils were equal round and reactive to light. Eyelids were unremarkable. PULMONARY: Unlabored respirations. Good breath sounds bilaterally. No audible rales rhonchi or wheezing was noted. CARDIOVASCULAR: There is a regular rate and rhythm without any murmurs gallops or rubs. ABDOMEN: Soft and nontender with normal bowel sounds. SKIN: Skin is clear with no lesions or rashes and otherwise unremarkable. NEUROLOGIC: Patient is alert and oriented x 0. Grossly patient does not appear to have any facial droop but he is unable to follow commands to test fully. He patient appears to be moving all 4 extremities but unable to assess strength. Patient is unable to speak at all MUSCULOSKELETAL: Normal extremities with adequate strength and full range of motion. No lower extremity swelling or edema. No calf tenderness. LYMPHATICS: No significant lymphadenopathy is noted PSYCHIATRIC: Normal psychiatric evaluation. Course Vital Signs 04/28/25 04/28/25 18:16 19:00 Temperature 97.6 F Pulse Rate 82 84 Respiratory 16 16 Rate Blood Pressure 128/82 125/75 O2 Sat by Pulse 100 100 Oximetry Medical Decision Making - Medical Decision Making EKG shows paced rhythm of very poor quality EKG at 83 beats a minute patient has multiple PVCs repeat EKG will be done. A better quality EKG was done I interpreted EKG myself it shows a paced rhythm at 85 bpm RI was 201 QRS is 125 QT interval is 434 QTc is 476. Patient's EKG shows occasional PVCs Was pt. sent in by a medical professional or institution (DESHAWN Cohen, OXYGEN FURNACE OPERATOR, urgent care, hospital, or prison...) When possible be specific @ -No Did you speak to anyone other than the patient for history (EMS, parent, family, police, friend...)? What history was obtained from this source @ -No Did you review nursing and triage notes (agree or disagree)? Why? @ -I reviewed and agree with nursing and triage notes Were old charts reviewed (outside hosp., previous admission, EMS record, old EKG, old radiological studies, urgent care reports/EKG's, prison records)? Report findings @ -No old charts were reviewed Differential Diagnosis? @ -Differential CVA Ischemic stroke, hemorrhagic stroke, brain tumor, atypical migraine, Wernicke's encephalopathy, seizure, multiple sclerosis, meningitis, encephalitis, hypoglycemia, Guillain-Law, electrolytes disturbance, myasthenia gravis.... This is not meant to be an all-inclusive list EKG interpreted by me (3pts min.). @ -As above X-rays interpreted by me (1pt min.). @ -Chest x-ray showed no acute abnormality CT interpreted by me (1pt min.). @ -CT of the brain and CT angio of the head and neck showed no acute abnormality CT angio of the aorta shows no acute abnormality U/S interpreted by me (1pt. min.). @ -None done What testing was considered but not performed or refused? (CT, X-rays, U/S, labs)? Why? @ -None What meds were considered but not given or refused? Why? @ -None Did you discuss the management of the patient with other professionals (professionals i.e. , PA, OXYGEN FURNACE OPERATOR, lab, RT, psych nurse, social media executive, tool salvage worker, teacher, sergeant of officers, case manager specialist)? Give summary @ -I spoke with sound physicians they agreed admit the patient admit the patient I wrote admitting orders. I spoke with the neuro interventionalists and he did recommend if there was no contraindications to give TNKase however the patient was on Eliquis Was smoking cessation discussed for >3mins.? @ -No Was critical care preformed (if so, how long)? @ -35 minutes Were there social determinants of health that impacted care today? How? (Homelessness, low income, unemployed, alcoholism, drug addiction, transportation, low edu. Level, literacy, decrease access to med. care, fci, rehab)? @ -No Was there de-escalation of care discussed even if they declined (Discuss DNR or withdrawal of care, Hospice)? DNR status @ -No What co-morbidities impacted this encounter? (DM, HTN, Smoking, COPD, CAD, Cancer, CVA, ARF, Chemo, Hep., AIDS, mental health diagnosis, sleep apnea, morbid obesity)? @ - Was patient admitted / discharged? Hospital course, mention meds given and route, prescriptions, significant lab abnormalities, going to OR and other pertinent info. @ -[facility] was called on patient's arrival. Patient arrived and was unable to follow any commands or speak to us over time patient became was able to speak better and follow basic commands he moved all 4 extremities he had no facial droop and though he had expressive aphasia when he did speak words they were clear. Patient was unable to get TNKase because he was on Eliquis. Undiagnosed new problem with uncertain prognosis? @ -No Drug Therapy requiring intensive monitoring for toxicity (Heparin, Nitro, Insuli n, Cardizem)? @ -No Were any procedures done? @ -No Diagnosis/symptom? @ -CVA Acute, or Chronic, or Acute on Chronic? @ -Acute Uncomplicated (without systemic symptoms) or Complicated (systemic symptoms)? @ -Complicated Side effects of treatment? @ -No Exacerbation, Progression, or Severe Exacerbation? @ -No Poses a threat to life or bodily function? How? (Chest pain, [place], CO, pneumonia, PE, COPD, DKA, ARF, appy, cholecystitis, CVA, Diverticulitis, Homicidal, Suicidal, threat to staff... and all critical care pts) @ -Yes this can lead to a further stroke and significant morbidity or mortality - Lab Data Result diagrams: 04/28/25 16:33 04/28/25 16:33 Lab Results 04/28/25 04/28/25 04/28/25 Range/Units 16:33 16:33 16:33 WBC 9.38 (4.50-10.00) 10*3/uL RBC 4.94 (4.40-5.60) 10*6/uL Hgb 14.3 (13.0-17.0) g/dL Hct 42.0 (39.6-50.0) % MCV 85.0 (80.0-97.0) fL MCH 28.9 (27.0-32.0) pg MCHC 34.0 (32.0-37.0) g/dL Plt Count 224 (140-440) 10*3/uL MPV 9.1 L (9.5-12.2) fL Immature Gran % (Auto) 0.3 % Neutrophils % 50.3 % Lymphocytes % 40.5 % Monocytes % 7.4 % Eosinophils % 1.2 % Basophils % 0.3 % Immature Gran # 0.03 (0.00-0.04) 10*3/uL Neutrophils # 4.72 (1.80-7.70) 10*3/uL Lymphocytes # 3.80 (0.90-5.00) 10*3/uL Monocytes # 0.69 (0.20-1.00) 10*3/uL Eosinophils # 0.11 (0.04-0.35) 10*3/uL Basophils # 0.03 (0.00-0.10) 10*3/uL PT 11.5 (10.0-12.5) sec INR 1.0 (<1.2) APTT 22.9 (22.0-30.0) sec Sodium 136 L (137-145) mmol/L Potassium 4.2 (3.5-5.1) mmol/L Chloride 102 (98-107) mmol/L Carbon Dioxide 19 L (22-30) mmol/L Anion Gap 15 mmol/L BUN 36 H (9-20) mg/dL Creatinine 1.42 H (0.66-1.25) mg/dL Est GFR (CKD-EPI)AfAm 58 (>60 ml/min/1.73 sqM) Est GFR (CKD-EPI)NonAf 50 (>60 ml/min/1.73 sqM) Glucose 117 H (74-99) mg/dL POC Glucose (mg/dL) (70-110) mg/dL POC Glu Computer Analyst ID Calcium 9.8 (8.4-10.2) mg/dL Total Bilirubin 1.1 (0.2-1.3) mg/dL AST 27 (17-59) U/L ALT 19 (4-49) U/L Alkaline Phosphatase 124 (38-126) U/L Creatine Kinase 69 (55-170) U/L Troponin I (0.000-0.034) ng/mL Total Protein 7.8 (6.3-8.2) g/dL Albumin 4.5 (3.5-5.0) g/dL 04/28/25 04/28/25 Range/Units 16:33 16:35 WBC (4.50-10.00) 10*3/uL RBC (4.40-5.60) 10*6/uL Hgb (13.0-17.0) g/dL Hct (39.6-50.0) % MCV (80.0-97.0) fL MCH (27.0-32.0) pg MCHC (32.0-37.0) g/dL Plt Count (140-440) 10*3/uL MPV (9.5-12.2) fL Immature Gran % (Auto) % Neutrophils % % Lymphocytes % % Monocytes % % Eosinophils % % Basophils % % Immature Gran # (0.00-0.04) 10*3/uL Neutrophils # (1.80-7.70) 10*3/uL Lymphocytes # (0.90-5.00) 10*3/uL Monocytes # (0.20-1.00) 10*3/uL Eosinophils # (0.04-0.35) 10*3/uL Basophils # (0.00-0.10) 10*3/uL PT (10.0-12.5) sec INR (<1.2) APTT (22.0-30.0) sec Sodium (137-145) mmol/L Potassium (3.5-5.1) mmol/L Chloride (98-107) mmol/L Carbon Dioxide (22-30) mmol/L Anion Gap mmol/L BUN (9-20) mg/dL Creatinine (0.66-1.25) mg/dL Est GFR (CKD-EPI)AfAm (>60 ml/min/1.73 sqM) Est GFR (CKD-EPI)NonAf (>60 ml/min/1.73 sqM) Glucose (74-99) mg/dL POC Glucose (mg/dL) 112 H (70-110) mg/dL POC Glu Computer Analyst ID [place] Jaimie Calcium (8.4-10.2) mg/dL Total Bilirubin (0.2-1.3) mg/dL AST (17-59) U/L ALT (4-49) U/L Alkaline Phosphatase (38-126) U/L Creatine Kinase (55-170) U/L Troponin I <0.012 (0.000-0.034) ng/mL Total Protein (6.3-8.2) g/dL Albumin (3.5-5.0) g/dL Disposition Clinical Impression: CVA (cerebral vascular accident) Disposition: ADMITTED IP TO THIS [facility] Time of Disposition: 19:05
[2025-04-28 16:45] LABS: Basophils # (A) 0.03 10*3/uL (0.00-0.10); Basophils % (A) 0.3 %; Eosinophils # (A) 0.11 10*3/uL (0.04-0.35); Eosinophils % (A) 1.2 %; HCT 42.0 % (39.6-50.0); HGB 14.3 g/dL (13.0-17.0); Lymphocytes # (A) 3.80 10*3/uL (0.90-5.00); Lymphocytes % (A) 40.5 %; MCH 28.9 pg (27.0-32.0); MCHC 34.0 g/dL (32.0-37.0); MCV 85.0 fL (80.0-97.0); Monocytes # (A) 0.69 10*3/uL (0.20-1.00); Monocytes % (A) 7.4 %; Neutrophils # (A) 4.72 10*3/uL (1.80-7.70); Neutrophils % (A) 50.3 %; Platelet Count 224 10*3/uL (140-440); RBC 4.94 10*6/uL (4.40-5.60); RDW 13.7 % (11.5-14.5); WBC 9.38 10*3/uL (4.50-10.00)
--- NOTE | 2025-04-28 16:54 | CT ---
EXAMINATION TYPE: CODE STROKE: CT brain wo contr DATE OF EXAM: 04/28/2025 4:47 PM COMPARISON: CT study 03/13/2025.. CLINICAL INDICATION: Male, 70 years old with history of Neuro deficit, acute, stroke suspected, neuro deficit TECHNIQUE: Brain: Axial CT images of the brain were obtained with coronal and sagittal reformats created and rev iewed. Contrast used: None. Oral contrast used: None. CT DLP: 1106.2 mGycm, Automated exposure control for dose reduction was used. FINDINGS: Brain: Extra-axial spaces: No abnormal extra-axial fluid collections. Ventricular system: Within normal limits Cerebral parenchyma: No acute intraparenchymal hemorrhage or mass effect. The banegas-white junction is well differentiated. Cerebellum: Unremarkable. Mass effect: No evidence of midline shift. Intracranial vasculature: unremarkable Soft tissues: Normal. Calvarium/osseous structures: No depressed skull fracture. Paranasal sinuses and mastoid air cells: Mild scattered paranasal sinus disease. Visualized orbits: Orbital contents are intact. IMPRESSION: No acute intracranial process. [facility], , 04/28/2025 4:52 PM
[2025-04-28 16:59] LABS: INR 1.0 (<1.2); Partial Thromboplastin Time 22.9 sec (22.0-30.0); Prothrombin Time 11.5 sec (10.0-12.5)
[2025-04-28 17:05] LABS: ALT 19 U/L (4-49); AST 27 U/L (17-59); African American GFR (CKD) 58 (>60 ml/min/1.73 sqM); Albumin 4.5 g/dL (3.5-5.0); Alkaline Phosphatase 124 U/L (38-126); Anion Gap 15 mmol/L; Blood Urea Nitrogen 36 mg/dL (9-20); Calcium 9.8 mg/dL (8.4-10.2); Carbon Dioxide 19 mmol/L (22-30); Chloride 102 mmol/L (98-107); Creatine Kinase 69 U/L (55-170); Glucose 117 mg/dL (74-99); Non-African American GFR(CKD) 50 (>60 ml/min/1.73 sqM); Potassium 4.2 mmol/L (3.5-5.1); Sodium 136 mmol/L (137-145); Total Protein 7.8 g/dL (6.3-8.2)
--- NOTE | 2025-04-28 17:40 | CT ---
EXAMINATION TYPE: CT angio head neck DATE OF EXAM: 04/28/2025 5:25 PM COMPARISON: Previous CT study 03/13/2025. CLINICAL INDICATION: Male, 70 years old with history of Neuro deficit, acute, stroke suspected; PH[facility], neuro deficit TECHNIQUE: Axially acquired helical CT angiogram of the head and neck was obtained with contrast. Axi al images are supplemented with 3D reconstructions and MIP images which were post-processed at an in dependent workstation. NASCET criteria used. Contrast used:65ml mL of Isovue 370 with IV Contrast, Oral contrast used: None. CT DLP: 760.6 mGycm, Automated exposure control for dose reduction was used. FINDINGS: CTA HEAD: No evidence of acute intracranial hemorrhage, mass effect, or midline shift. The ventricles, sulci, a nd cisterns are unremarkable. Vertebral arteries: The vertebral arteries are patent. Vertebral artery dominance: Left Basilar artery: The basilar artery is intact. The basilar artery bifurcation is normal. Internal Carotid arteries: The cervical, petrous, cavernous and supraclinoid segments are normal. IRIS: Patent with no evidence of aneurysm. ACOM: Present without evidence of aneurysm. MCA: Patent with no evidence of aneurysm. BIOMETRICS ANALYST: Patent with no evidence of aneurysm. PCOM: Hypoplastic bilaterally. Dural sinuses: Patent. CTA NECK: Right Carotid System: The common carotid artery and external carotid artery are patent. The carotid bifurcation demonstrate s no evidence of hemodynamically significant stenosis. The remaining portions of the internal carotid artery demonstrate normal size without significant narrowing. Left Carotid System: The common carotid artery and external carotid artery are patent. The carotid bifurcation demonstrate s no evidence of hemodynamically significant stenosis. The remaining portions of the internal carotid artery demonstrate normal size without significant narrowing. Vertebral arteries are patent without evidence hemodynamically significant stenosis. There is a three-vessel aortic arch. The origins of the great vessels are patent. No evidence of hemo dynamically significant stenosis. Upper thorax: IMPRESSION: 1. No evidence of dissection of the cervical internal carotid arteries or vertebral arteries. 2. No any evidence of significant stenosis at the carotid bifurcations. 3. No evidence of intracranial high-grade stenosis or intracranial aneurysm. [facility], , 04/28/2025 5:37 PM
--- NOTE | 2025-04-28 17:53 | CT ---
EXAMINATION TYPE: CT noncontrast chest abdomen pelvis. CT angio thor/abd pel aorta DATE OF EXAM: 04/28/2025 5:26 PM COMPARISON: CT study dated 03/13/2025.. CLINICAL INDICATION: Male, 70 years old with history of Chest pain with neurologic symptoms; [facility], TECHNIQUE: Noncontrast CT chest followed by CT angiogram chest abdomen pelvis. A noncontrast CT chest Multiple a xial CT images of the chest, abdomen, and pelvis were obtained prior to and after the administration of IV contrast. 3-D reformats and maximum intensity projection format were performed on a separate wo rkstation. . FINDINGS: ARTERIAL VASCULATURE: Ascending thoracic aorta and descending thoracic aorta are within normal limits for size. There is no evidence for intramural hematoma within the aorta on noncontrast imaging. Post contrast imaging demonstrates no evidence for dissection. The major vessels of the aortic arch are pa tent. The major vessels of the abdominal aorta are patent. PULMONARY ARTERIAL VASCULATURE: Normal caliber. No evidence of filling defect to suggest pulmonary em bolus. VENOUS SYSTEM: Unremarkable. Incidental note of retroaortic left renal vein. LUNGS/ PLEURA: No focal consolidation, pneumothorax or pleural effusion. AIRWAY: Patent and unremarkable. HEART: Cardiomegaly. Previous aortic valve replacement. Median sternotomy wires. Left chest wall AICD device with leads terminating in the right atrium and right ventricle. MEDIASTINUM: No gross evidence of adenopathy. MUSCULOSKELETAL: No acute osseous abnormalities SOFT TISSUES/LYMPH NODES: Unremarkable. LOWER NECK: No significant findings. Abdomen: LIVER: Unremarkable GALLBLADDER AND BILE DUCTS: The gallbladder is surgically absent. PANCREAS: Unremarkable. SPLEEN: Unremarkable. ADRENAL GLANDS: Unremarkable. KIDNEYS AND URETERS: No evidence of hydronephrosis or renal calculus. The ureters are unremarkable. PELVIS BLADDER: Unremarkable REPRODUCTIVE: Unremarkable. ABDOMEN & PELVIS STOMACH AND BOWEL: Stomach and duodenum are unremarkable. No evidence of bowel obstruction. PERITONEUM/RETROPERITONEUM: No evidence of pneumoperitoneum or free fluid. MUSCULOSKELETAL: No acute osseous abnormalities. Multilevel thoracic or lumbar spine degenerative devi nges. Decreased osseous mineralization. Anterolisthesis of L4 on L5. Bilateral old rib fracture defor mities. LYMPH NODES: No gross evidence for lymphadenopathy. SOFT TISSUE/ABDOMINAL WALL: Fat-containing small right inguinal hernia. IMPRESSION: No acute abnormality in the chest/abdomen/pelvis. Specifically, no evidence of aortic dissection, ane urysm or occlusion. [facility], , 04/28/2025 5:50 PM
[2025-04-28] MEDS: levETIRAcetam IV 500 MG/5 ML VIAL IVP STA (18:14)
--- NOTE | 2025-04-28 18:21 | XR ---
EXAMINATION TYPE: XR chest 1V portable DATE OF EXAM: 04/28/2025 6:17 PM COMPARISON: Chest radiograph 04/22/2025. CLINICAL INDICATION: Male, 70 years old with history of altered mental status; [facility] TECHNIQUE: XR chest 1V portable Frontal view of the chest. FINDINGS: Lungs/Pleura: There is no evidence of pleural effusion, focal consolidation, or pneumothorax. Pulmonary vascularity: Unremarkable. Heart/mediastinum: Cardiomegaly. Median sternotomy wires. Left chest wall AICD device with leads over lying the region of the right atrium and right ventricle. Musculoskeletal: No acute osseous pathology. Other findings: None IMPRESSION: No acute cardiopulmonary disease/process. [facility], , 04/28/2025 6:19 PM
[2025-04-28] MEDS: APIXABAN 5 MG TAB PO SCH (21:45)
[2025-04-28] MEDS: ACETAMINOPHEN TAB 325 MG TAB PO PRN (21:46)
[2025-04-28] MEDS: ATORVASTATIN 40 MG TAB PO SCH (21:46)
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
[2025-04-29] MEDS ORDERED: DEXTROSE 50% SYRINGE 50 ML IVP PRN ×2 (01:17)
[2025-04-29 06:06] LABS: Glucose,Whole Blood 120 mg/dL (70-110)
[2025-04-29] MEDS: INSULIN LISPRO (HumaLOG) 100 UNIT/ML 10 mL VL SQ SCH (06:11)
[2025-04-29 06:53] LABS: Basophils # (A) 0.03 10*3/uL (0.00-0.10); Basophils % (A) 0.4 %; Eosinophils # (A) 0.14 10*3/uL (0.04-0.35); Eosinophils % (A) 2.1 %; HCT 40.3 % (39.6-50.0); HGB 13.2 g/dL (13.0-17.0); Lymphocytes # (A) 2.34 10*3/uL (0.90-5.00); Lymphocytes % (A) 34.8 %; MCH 28.9 pg (27.0-32.0); MCHC 32.8 g/dL (32.0-37.0); MCV 88.2 fL (80.0-97.0); Monocytes # (A) 0.48 10*3/uL (0.20-1.00); Monocytes % (A) 7.1 %; Neutrophils # (A) 3.71 10*3/uL (1.80-7.70); Neutrophils % (A) 55.3 %; Platelet Count 202 10*3/uL (140-440); RBC 4.57 10*6/uL (4.40-5.60); RDW 14.0 % (11.5-14.5); WBC 6.72 10*3/uL (4.50-10.00)
[2025-04-29 07:11] LABS: African American GFR (CKD) 72 (>60 ml/min/1.73 sqM); Anion Gap 9 mmol/L; Blood Urea Nitrogen 29 mg/dL (9-20); Calcium 9.0 mg/dL (8.4-10.2); Carbon Dioxide 24 mmol/L (22-30); Chloride 107 mmol/L (98-107); Glucose 103 mg/dL (74-99); Non-African American GFR(CKD) 63 (>60 ml/min/1.73 sqM); Potassium 3.9 mmol/L (3.5-5.1); Sodium 140 mmol/L (137-145)
[2025-04-29] MEDS: CYANOCOBALAMIN 500 MCG TAB PO SCH (08:30)
[2025-04-29] MEDS: SPIRONOLACTONE 25 MG TAB PO SCH (08:30)
[2025-04-29] MEDS: PARoxetine 10 MG TAB PO SCH (08:30)
[2025-04-29] MEDS: DAPAGLIFLOZIN PROPANEDIOL 10 MG TABLET PO SCH (08:31)
[2025-04-29] MEDS: BUMETANIDE 1 MG TAB PO SCH (08:31)
[2025-04-29] MEDS: ASCORBIC ACID 500 MG TAB PO SCH (08:31)
[2025-04-29] MEDS: ASPIRIN 81 MG PO SCH (08:31)
[2025-04-29] MEDS ORDERED: ASPIRIN 300 MG SUPP RECTAL SCH (09:00)
[2025-04-29] MEDS ORDERED: NON FORMULARY DRUG (Aspirin Ec 81 MG Tablet) PO SCH (09:00)
[2025-04-29] MEDS ORDERED: NON FORMULARY DRUG (Ubidecarenone [Coenzyme Q10] 200 MG Capsule) PO SCH (09:00)
[2025-04-29] MEDS: SACUBITRIL/VALSARTAN 49 MG-51 MG TABLET PO SCH (09:06)
[2025-04-29 11:31] LABS: Glucose,Whole Blood 126 mg/dL (70-110)
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
[2025-04-29 15:48] LABS: Cholesterol 115.00 mg/dL (0.00-200.00); HDL Cholesterol 35.20 mg/dL (40.00-60.00); LDL Cholesterol,Calculated 47.8 mg/dL (0.0-131.0); Triglycerides 160.00 mg/dL (0.00-149.00); VLDL Calculation 32.00 mg/dL (5.00-40.00)
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
[2025-04-29] MEDS: HYDROcodone/APAP 5-325MG 1 EACH TAB PO PRN (16:14)
[2025-04-29 16:31] LABS: Glucose,Whole Blood 128 mg/dL (70-110)
[2025-04-29 20:18] LABS: Glucose,Whole Blood 143 mg/dL (70-110)
--- NOTE | 2025-04-29 20:42 | CA ---
Transthoracic Echo Report Name: Duane Ritter Age: 70 Gender: M : 1955 Exam Date: 04/29/2025 10:39 Exam Location: [facility] Ht (in): 70 Wt (lb): 260 Ordering Physician: Erica Perea MD Attending/Referring Phys: Application Security Developer Joon Griffith RDCS Procedure CPT: Indications: possible CVA, CVA Cardiac Hx: Technical Quality: Fair Contrast 1: Total Dose (mL): Contrast 2: Total Dose (mL): MEASUREMENTS (Male / Female) Normal Values 2D ECHO LV Diastolic Diameter PLAX 5.8 cm 4.2 - 5.9 / 3.9 - 5.3 cm LV Systolic Diameter PLAX 5.7 cm IVS Diastolic Thickness 1.2 cm 0.6 - 1.0 / 0.6 - 0.9 cm LVPW Diastolic Thickness 1.1 cm 0.6 - 1.0 / 0.6 - 0.9 cm LV Relative Wall Thickness 0.4 RV Internal Dim ED PLAX 2.6 cm LVOT Diameter 2.0 cm LA Systolic Diameter LX 4.3 cm 3.0 - 4.0 / 2.7 - 3.8 cm LA Volume 84.3 cm??? 18 - 58 / 22 - 52 cm??? LA Volume Index 34.3 cm???/m??? 16 - 28 cm???/m??? Aorta at Sinotubular Diameter 1.8 cm Ascending Aorta Diameter 2.3 cm Aorta at Sinuses Diameter 3.2 cm M-MODE Aortic Root Diameter MM 3.3 cm LA Systolic Diameter MM 4.4 cm LA Ao Ratio MM 1.3 MV E Point Septal Separation 2.5 cm AV Cusp Separation MM 1.4 cm DOPPLER AV Peak Velocity 156.0 cm/s AV Peak Gradient 9.7 mmHg AV Mean Velocity 115.5 cm/s AV Mean Gradient 6.0 mmHg AV Velocity Time Integral 30.8 cm LVOT Peak Velocity 85.2 cm/s LVOT Peak Gradient 2.9 mmHg LVOT Velocity Time Integral 13.1 cm LVOT Stroke Volume 40.4 cm??? LVOT Stroke Volume Index 17.3 ml/m??? LVOT Cardiac Index 1067.9 cm???/min???m??? AV Area Cont Eq vti 1.3 cm??? AV Area Cont Eq pk 1.7 cm??? TR Peak Velocity 203.6 cm/s TR Peak Gradient 16.6 mmHg FINDINGS Left Ventricle Left ventricular ejection fraction is estimated at 20-25 %. Mildly increased septal wall thickness. Severely reduced global left ventricular systolic function. Right Ventricle Normal right ventricular size and function. Pacemaker wire in the right ventricular cavity. Right Atrium right atrial dilatation. No right atrial thrombus or mass seen. Left Atrium Moderately increased left atrial volume. No left atrial thrombus or mass present. Mitral Valve No mitral stenosis. [id number] mitral regurgitation. Aortic Valve No paravalvular aortic regurgitation. No prosthetic aortic valve stenosis. Normally functioning bioprosthetic aortic valve without stenosis with a peak velocity of 1.6 m/s, peak gradient 10mmHg, mean gradient 6mmHg. Tricuspid Valve No tricuspid stenosis. Mild tricuspid regurgitation. Pulmonic Valve Pulmonic valve not well visualized. Pericardium Normal pericardium. No pericardial or pleural effusion. Aorta Normal size aortic root and proximal ascending aorta. CONCLUSIONS LVEF 20 to 25% No evidence of LV thrombus Severely reduced global systolic function Moderate biatrial dilatation Bioprosthetic aortic valve with mean gradient 6 mmHg, no PVL or regurgitation Moderate mitral regurgitation, mild tricuspid regurgitation Previewed by: Dr Miguel Cornell (Electronically Signed) Final Date: 29 April 2025 20:41
[2025-04-30 06:11] LABS: Glucose,Whole Blood 122 mg/dL (70-110)
[2025-04-30 07:30] LABS: Basophils # (A) 0.04 10*3/uL (0.00-0.10); Basophils % (A) 0.7 %; Eosinophils # (A) 0.19 10*3/uL (0.04-0.35); Eosinophils % (A) 3.5 %; HCT 40.2 % (39.6-50.0); HGB 13.2 g/dL (13.0-17.0); Lymphocytes # (A) 2.19 10*3/uL (0.90-5.00); Lymphocytes % (A) 40.0 %; MCH 28.8 pg (27.0-32.0); MCHC 32.8 g/dL (32.0-37.0); MCV 87.6 fL (80.0-97.0); Monocytes # (A) 0.43 10*3/uL (0.20-1.00); Monocytes % (A) 7.8 %; Neutrophils # (A) 2.61 10*3/uL (1.80-7.70); Neutrophils % (A) 47.6 %; Platelet Count 198 10*3/uL (140-440); RBC 4.59 10*6/uL (4.40-5.60); RDW 13.8 % (11.5-14.5); WBC 5.48 10*3/uL (4.50-10.00)
[2025-04-30 07:43] LABS: African American GFR (CKD) 74 (>60 ml/min/1.73 sqM); Anion Gap 8 mmol/L; Blood Urea Nitrogen 28 mg/dL (9-20); Calcium 8.6 mg/dL (8.4-10.2); Carbon Dioxide 25 mmol/L (22-30); Chloride 106 mmol/L (98-107); Glucose 113 mg/dL (74-99); Non-African American GFR(CKD) 64 (>60 ml/min/1.73 sqM); Potassium 4.1 mmol/L (3.5-5.1); Sodium 139 mmol/L (137-145)
[2025-04-30 11:46] LABS: Glucose,Whole Blood 216 mg/dL (70-110)
[2025-04-30 11:57] VITALS: BP 101/66; PULSE 72; RESP 16; TEMP 97.5
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
== END 2025-04-30 15:52 | disposition home health service (06) ==
LOC: EC 16:31 → INTOOBSV 19:07 → 3SCARD 19:07
PROVIDERS: ADMIT Family Medicine; ATTEND Family Medicine
DX: R10.9 Unspecified abdominal pain
CPT/HCPCS: 96374; 99291; 36415; 94760; 93005; 93306; 97161; 97166; 92523; 82172; 80061; 80053; 80048 ×2; 82550; 83605; 84484; 85025 ×3; 85610; 85730; 83036; 71045; 70496; 70450; 70498; 71275; 74174; G0378 ×3; J1953; Q9967